=== PATIENT | female | born 1940 | race Caucasian/White ===

== ENCOUNTER 2022-06-22 11:56 | Emergency (ER) | payer MEDICARE, SELFPAY ==
--- NOTE | 2022-06-22 12:32 | ED.GENADULT ---
HPI - General Adult General Chief complaint: Extremity Problem Stated complaint: swollen cavs Time Seen by Provider: 06/22/22 17:24 Source: patient and other (friend) Mode of arrival: ambulatory Limitations: no limitations History of Present Illness HPI narrative: Patient is an 81-year-old female with history of cellulitis, TRAMAINE, hypothyroid, HLD, and smoking presenting to the emergency department with right lower leg erythema and pruritus for approximately 1 week. She reports history of cellulitis in the past and states this feels similar. She denies any recent fevers. She denies any drainage from the area. She has not used any [id number] medications for her symptoms. She denies any calf swelling or tenderness. Related Data Previous Rx's Medication Instructions Recorded amitriptyline 25 mg tablet 25 mg PO BEDTIME #90 tabs 09/14/20 levothyroxine 75 mcg tablet 75 mcg PO DAILY #90 tabs 12/13/20 doxycycline hyclate 100 mg tablet 100 mg PO BID #13 tabs 06/22/22 Allergies Allergy/AdvReac Type Severity Reaction Status Date / Time azithromycin Allergy Unknown Unknown Verified 06/22/22 12:37 codeine Allergy Unknown Unknown Verified 06/22/22 12:37 docusate [From Colace] Allergy Unknown red rash, Verified 06/22/22 12:37 hand swelling latex [LATEX] Allergy Unknown ITCHY Verified 06/22/22 12:37 levofloxacin [Levaquin] Allergy Unknown Unknown Verified 06/22/22 12:37 oxybutynin Allergy Unknown red Verified 06/22/22 12:37 rash,hand swelling Sulfa (Sulfonamide Allergy Unknown RASH, Verified 06/22/22 12:37 Antibiotics) Hives, [SULFA (SULFONAMIDE hives ANTIBIOTICS)] Review of Systems Review of Systems: As per HPI Yes all other systems are reviewed and are negative Constitutional: Constitutional: Reports as per HPI PMFSH Past Medical History Surgical History History of cataract surgery History of section History of cystoscopy History of tonsillectomy Family History Family History Father Lung cancer Mother Hypertension MRSA infection Family history of thyroid problem Social History Social History Alcohol intake: never Cigarettes Per Day: 10 Advance Directives: No Advance Directives Information Provided: No Physical Exam ED Vital Signs: Vital Signs - 24 hr 06/22/22 12:34 06/22/22 17:57 Temperature 97.8 F 97.7 F Pulse Rate 85 84 Respiratory Rate 16 16 Blood Pressure 106/52 L 108/47 L Pulse Oximetry 98 96 Oxygen Delivery Method Room Air Room Air BMI result Body Mass Index 23.0 Const General: cooperative, healthy appearing and no acute distress Orientation/consciousness: oriented to person, oriented to place, oriented to time and patient oriented x3 Limitations: no limitations HENMT Head: Yes normocephalic and Yes atraumatic Ears: external ears normal General nose exam: Normal external nose present Face and sinus: Yes face symmetric Mouth: oropharynx normal and moist mucous membranes Throat: Yes uvula midline Eyes Pupils: Equal, round and reactive pupils present Neck Neck: Yes normal visual inspection and Yes supple Resp Effort & Inspection: normal respiratory effort and able to speak in complete sentences Auscultation: clear to auscultation bilaterally Cardio Rate: regular rate Rhythm: regular rhythm Heart sounds: S1 normal heart sound present and S2 normal heart sound present GI Palpation (GI): Soft to palpation and nontender Auscultation: normoactive bowel sounds General: Yes no CVA tenderness Back/Spine/Pelvis Back: no CVA tenderness Skin Other: Circumferential erythema and calor with overlying yellow skin flaking to mid right lower leg extending distally to ankle, no discharge or drainage. General skin exam: elasticity normal and turgor normal Neuro General: oriented to person, oriented to place, oriented to time, patient oriented x3, moves all extremities, no focal motor deficits and CN's II-XI intact bilaterally Cranial nerves: Yes Equal, round and reactive pupils present Cognition (Neuro): normal cognition Extrem Other: negative Mamie's General: Yes full ROM, Yes no pedal edema and Yes no calf tenderness Right lower extremity: lower leg Details: erythema (overlying yellow flaking skin; no discharge or drainage) Location: of the mid lower leg Location: anteromedially and posterolaterally and of the distal lower leg Location: anteromedially and posterolaterally, tenderness Location: of the distal tibia; not of the posterior calf and no edema; no palpable cords and foot Details: normal capillary refill, normal to inspection, vascular exam Details: dorsalis pedis pulse present and normal capillary refill and motor-sensory exam Details: light-touch normal Psych Mental Status: mental status grossly normal Affect: normal affect Thought process: Normal thought process present Course Course Course Narrative: This is an RME: Additional HPI, ROS, PE not included below will be deferred to primary provider. 81 year old female with PMH of hyperlipidemia, TRAMAINE, hypothroidism and cigarrette smoking presents to the ED with right leg swelling for a few weeks. Patient's front clerk reports they usually soak her legs. Redness began about 2 days ago. No fevers, chills, numbness and tingling. PE: Erythema, weeping and 3+ non-pitting edema to right lower leg. Tender to palpation. Plan: Basic Labs Medical Decision Making Medical Decision Making [facility] Narrative: Patient is an 81-year-old female with history of cellulitis, TRAMAINE, hypothyroid, HLD, and smoking presenting to the emergency department with right lower leg erythema and pruritus for approximately 1 week. On exam patient is afebrile, nontoxic appearing, A+Ox3 with VS WNL, has localized erythema and warmth concerning for cellulitis. No lymphangitic spread visible and no fluid pockets or fluctuance concerning for abscess noted. Low concern for osteomyelitis or DVT. No immune compromise, bullae, pain out of proportion, or rapid progression concerning for necrotizing fasciitis. Labs unremarkable, no leukocytosis or shift. No evidence of serious bacterial infection requiring admission for antibiotics. Feel patient is safe to discharge home on oral doxycycline and follow up with PCP. Advised Tylenol or ibuprofen for discomfort. Return precautions discussed at bedside. Differential Diagnosis Differential Diagnoses: The differential diagnosis associated with the presentation includes As above. Admission/Observation Consideration of admission/observation: Escalation of care including admission/observation considered Lab Data [facility] Lab Attestation statement: I reviewed the patient's lab results. 06/22/22 13:42 06/22/22 13:42 Labs: Lab Results 06/22/22 06/22/22 06/22/22 Range/Units 13:42 13:42 13:42 WBC 8.0 (4.8-10.8) X10*3/uL RBC 4.51 (4.20-5.50) X10*6/uL Hgb 14.1 (12.0-16.0) g/dl Hct 43.2 (37.0-47.0) % MCV 95.8 (80.0-98.0) fL MCH 31.3 (27.0-33.0) pg MCHC 32.6 (31.0-35.0) g/dl RDW 13.0 (11.0-16.0) % Plt Count 234 (160-400) X10*3/uL MPV 9.8 (9.4-12.3) fL Immature Gran % (Auto) 0.3 (0.0-0.4) % Neut % (Auto) 66.1 (45-73) % Lymph % (Auto) 20.8 (20-40) % [place] % (Auto) 9.1 (2-11) % Eos % (Auto) 3.4 (0-4) % Baso % (Auto) 0.3 (0-2) % Lymph # (Auto) 1.7 (1.2-4.9) X10*3/uL [place] # (Auto) 0.7 (0.1-1.2) X10*3/uL Eos # (Auto) 0.3 (0.0-0.4) X10*3/uL Baso # (Auto) 0.0 (0.0-0.2) X10*3/uL Abs Immat Gran (auto) 0.02 (0.00-0.03) X10*3/uL Absolute Neuts (auto) 5.3 (2.0-8.3) x10*3/uL Absolute Nucleated RBC 0.000 (0.0-0.012) X10*3/uL Nucleated RBC % (auto) 0.0 (0.0-0.2) /100WBC Sodium 141 (135-145) mmol/L Potassium 4.5 (3.3-5.1) mmol/L Chloride 109 H (96-108) mmol/L Carbon Dioxide 26 (22-29) mmol/L Anion Gap 11 L (12-20) BUN 19 H (9-16) mg/dL Creatinine 0.86 (0.5-1.4) mg/dL Estim Creat Clear Calc 42.4 Estimated GFR > 60 Random Glucose 89 (60-115) mg/dL Calcium 9.5 (8.4-10.2) mg/dL Magnesium 2.0 (1.6-2.6) mg/dL Total Bilirubin 1.7 H (0.0-1.0) mg/dL AST 24 (5-31) U/L ALT 16 (0-31) U/L Alkaline Phosphatase 79 (39-117) U/L B-Natriuretic Peptide 45 (<100) pg/mL Total Protein 6.4 L (6.5-8.0) g/dL Albumin 4.2 (3.5-5.0) g/dL Independent Historian Clinical information obtained from an independent historian. History obtained from or confirmed by: Friend External Record Review External record reviewed: Inpatient record, Office record and Outpatient record Prescription Management I considered prescription management with: Antibiotic (doxycycline) Discharge Plan Discharge Clinical Impression: Cellulitis of leg, right Patient Disposition: Home, Self-Care Instructions: Doxycycline (By mouth), Cellulitis (ED), Cellulitis (DC) Additional Instructions: You have been evaluated in the emergency department today for skin infection, also known as cellulitis. Please return to the ER immediately if the area of redness increases up your leg. You are being prescribed an antibiotic called doxycycline. You were given the 1st dose here in the emergency department, your next dose is due in the morning. Please take your prescribed antibiotics as directed for the full course of the medication. You can use Tylenol or ibuprofen per package instructions every 6 hours as needed for pain. If necessary, you can alternate these medications so that you can take one medication every 3 hours. For instance, at noon take ibuprofen, then at 3:00 p.m. take Tylenol, then at 6:00 p.m. take ibuprofen. Please schedule an appointment for follow-up with your primary care physician as soon as possible. Return to the emergency department if you experience recurrent vomiting, fevers greater than 100.4? F, increasing area of redness, warmth around the area, foul-smelling discharge from the area, increased tenderness around the area, or any other concerning symptoms. Prescriptions: New doxycycline hyclate 100 mg tablet 100 mg PO BID Qty: 13 0RF No Action amitriptyline 25 mg tablet 25 mg PO BEDTIME Qty: 90 0RF levothyroxine 75 mcg tablet 75 mcg PO DAILY Qty: 90 1RF
[2022-06-22 12:34] VITALS: BP 106/52; PULSE 85; RESP 16; TEMP 36.6; O2SAT 98; BMI 23.0
[2022-06-22 13:49] LABS: MANUAL DIFF FLAG NO
[2022-06-22 13:50] LABS: Basophils Percent Auto 0.3 % (0-2); Eosinophils Absolute Auto 0.3 X10*3/uL (0.0-0.4); Eosinophils Percent Auto 3.4 % (0-4); Hematocrit 43.2 % (37.0-47.0); Hemoglobin 14.1 g/dl (12.0-16.0); Imm Gran Abs Auto 0.02 X10*3/uL (0.00-0.03); Imm Gran Pct Auto 0.3 % (0.0-0.4); Lymphocytes Absolute Auto 1.7 X10*3/uL (1.2-4.9); Lymphocytes Percent Auto 20.8 % (20-40); Mean Corpuscular HGB Conc 32.6 g/dl (31.0-35.0); Mean Corpuscular Hemoglobin 31.3 pg (27.0-33.0); Mean Corpuscular Volume 95.8 fL (80.0-98.0); Mean Platelet Volume 9.8 fL (9.4-12.3); Monocytes Absolute Auto 0.7 X10*3/uL (0.1-1.2); Monocytes Percent Auto 9.1 % (2-11); Neutrophils Absolute Auto 5.3 x10*3/uL (2.0-8.3); Neutrophils Percent Auto 66.1 % (45-73); Platelet Count 234 X10*3/uL (160-400); Red Blood Count 4.51 X10*6/uL (4.20-5.50)
[2022-06-22 14:10] LABS: Alanine Aminotransferase 16 U/L (0-31); Albumin Level 4.2 g/dL (3.5-5.0); Alkaline Phosphatase 79 U/L (39-117); Anion Gap 11 (12-20); Aspartate Amino Transferase 24 U/L (5-31); Bilirubin Total 1.7 mg/dL (0.0-1.0); Blood Urea Nitrogen 19 mg/dL (9-16); Calcium 9.5 mg/dL (8.4-10.2); Carbon Dioxide 26 mmol/L (22-29); Chloride 109 mmol/L (96-108); Creatinine Clr Calc Pharmacy 42.4; Estimated Glomerular Filt Rate > 60; Glucose Random 89 mg/dL (60-115); Potassium 4.5 mmol/L (3.3-5.1); Sodium 141 mmol/L (135-145); Total Protein 6.4 g/dL (6.5-8.0)
[2022-06-22 14:14] LABS: B Type Natriuretic Peptide 45 pg/mL (<100)
[2022-06-22 17:57] VITALS: BP 108/47; PULSE 84; RESP 16; TEMP 36.5; O2SAT 96
[2022-06-22] MEDS: Doxycycline Monohydrate 100 MG CAPSULE PO (18:24)
[2022-06-22] MEDS: diphenhydrAMINE HCL 25 MG CAPSULE PO (18:24)
== END 2022-06-22 18:28 | disposition home or self-care (01) ==
PROVIDERS: Physician Assistant; Emergency Provider Student in an Organized Health Care Education/Training Program; PCP Physician Assistant
DX: L03.115 Cellulitis of right lower limb (principal); R06.02 Shortness of breath; Z79.899 Other long term (current) drug therapy
CPT/HCPCS: 36415; 80053; 83735; 83880; 85025; 99282; 99283

== ENCOUNTER 2022-06-29 12:34 | Emergency (ER) | payer MEDICARE, OTHER, SELFPAY ==
[2022-06-29 12:45] VITALS: BP 95/45; PULSE 84; RESP 16; TEMP 36.6; O2SAT 99; BMI 24.8
--- NOTE | 2022-06-29 12:48 | ED_ITS ---
HPI - Skin/Abscess/Foreign Bdy General Chief complaint: Skin/Abscess/Foreign Body <ISAIAS Renee Last Filed: 06/29/22 12:51> Stated complaint: rash on both feet <ISAIAS Renee - Last Filed: 06/29/22 12:51> Time Seen by Provider: 06/29/22 14:21 <ISAIAS Renee - Last Filed: 06/29/22 12:51> Related Data Home medications: Previous Rx's Medication Instructions Recorded amitriptyline 25 mg tablet 25 mg PO BEDTIME #90 tabs 09/14/20 levothyroxine 75 mcg tablet 75 mcg PO DAILY #90 tabs 12/13/20 doxycycline hyclate 100 mg tablet 100 mg PO BID #13 tabs 06/22/22 <ISAIAS Renee Last Filed: 06/29/22 12:51> Allergies/Adverse reactions: Allergies Allergy/AdvReac Type Severity Reaction Status Date / Time azithromycin Allergy Unknown Unknown Verified 06/22/22 12:37 codeine Allergy Unknown Unknown Verified 06/22/22 12:37 docusate [From Colace] Allergy Unknown red rash, Verified 06/22/22 12:37 hand swelling latex [LATEX] Allergy Unknown ITCHY Verified 06/22/22 12:37 levofloxacin [Levaquin] Allergy Unknown Unknown Verified 06/22/22 12:37 oxybutynin Allergy Unknown red Verified 06/22/22 12:37 rash,hand swelling Sulfa (Sulfonamide Allergy Unknown RASH, Verified 06/22/22 12:37 Antibiotics) Hives, [SULFA (SULFONAMIDE hives ANTIBIOTICS)] <ISAIAS Renee Last Filed: 06/29/22 12:51> [facility] Past Medical History Surgical History: Surgical History History of cataract surgery History of section History of cystoscopy History of tonsillectomy <ISAIAS Renee Last Filed: 06/29/22 12:51> Family History Family History: Family History Father Lung cancer Mother Hypertension MRSA infection Family history of thyroid problem <ISAIAS Renee - Last Filed: 06/29/22 12:51> Social History Social History: Social History Alcohol intake: never Cigarettes Per Day: 10 Advance Directives: No <ISAIAS Renee - Last Filed: 06/29/22 12:51> Physical Exam Vital Signs: Vital Signs: Last Vital Signs Temp 97.9 F 06/29/22 12:45 Pulse 84 06/29/22 12:45 Resp 16 06/29/22 12:45 BP 95/45 L 06/29/22 12:45 Pulse Ox 99 06/29/22 12:45 O2 Del Method Room Air 06/29/22 12:45 BMI result Body Mass Index 24.8 <ISAIAS Renee - Last Filed: 06/29/22 12:51> Vital Signs: Last Vital Signs Temp 97.9 F 06/29/22 12:45 Pulse 84 06/29/22 12:45 Resp 16 06/29/22 12:45 BP 95/45 L 06/29/22 12:45 Pulse Ox 99 06/29/22 12:45 O2 Del Method Room Air 06/29/22 12:45 BMI result Body Mass Index 24.8 <VICKIE Caldera-BC - Last Filed: 06/29/22 15:47> Course Course Course Narrative: 1249 This is an RME: Additional HPI, ROS, PE not included below will be deferred to primary provider. 81-year-old female presents with worsening cellulitis of bilateral lower extremities now having bilateral upper extremity itching, patient states itching started at after treatment was initiated. According to chart review patient was on doxycycline. Possibly allergic reaction patient's blood pressure soft. Will order blood cultures, labs, lactic <ISAIAS Renee - Last Filed: 06/29/22 12:51> Medical Decision Making Medical Decision Making MDM Narrative: 81-year-old female presents with worsening cellulitis of bilateral lower extremities now having bilateral upper extremity itching, patient states itching started at after treatment was initiated. According to chart review patient was on doxycycline. her last dose was yesterday. Patient started yesterday with lower extremity or itching today her left upper arm and right upper arm begin to it. Patient noticed small rash. patient is afebrile,, alert and oriented x3. Normal vital signs. Nontoxic appearing. Localize erythema without increased warmth. No lymphatic spread or fluid pockets concerning for abscess. Low concern for osteomyelitis and DVT. Patient is not immunocompromised. Labs reviewed, and unremarkable. No leukocytosis or shift. Lactic acid ordered in triage and normal. No evidence of series bacterial infection requiring admission for antibiotics. Patient can be sent home with script for Benadryl, hydrocortisone and Benadryl cream. She can follow-up with her PCP. Return precautions discussed with patient and manager of training and development at bedside. <SAMARA CalderaP-BC - Last Filed: 06/29/22 15:47> Differential Diagnosis Differential Diagnoses: The differential diagnosis associated with the presentation includes <Gayle Pfeiffer CARE PROVIDER-BC - Last Filed: 06/29/22 15:47> Cellulitis, DVT, <Gayle Pfeiffer CARE PROVIDER-BC - Last Filed: 06/29/22 15:47> Lab Data MDM Lab Attestation statement: I reviewed the patient's lab results. <SAMARA CalderaP-BC - Last Filed: 06/29/22 15:47> Result Diagrams: 06/29/22 14:13 06/29/22 14:13 <ISAIAS Renee - Last Filed: 06/29/22 12:51> Labs: Lab Results 06/29/22 06/29/22 06/29/22 Range/Units 14:13 14:13 14:13 WBC 6.4 (4.8-10.8) X10*3/uL RBC 4.28 (4.20-5.50) X10*6/uL Hgb 13.6 (12.0-16.0) g/dl Hct 41.0 (37.0-47.0) % MCV 95.8 (80.0-98.0) fL MCH 31.8 (27.0-33.0) pg MCHC 33.2 (31.0-35.0) g/dl RDW 12.8 (11.0-16.0) % Plt Count 245 (160-400) X10*3/uL MPV 9.8 (9.4-12.3) fL Immature Gran % (Auto) 0.2 (0.0-0.4) % Neut % (Auto) 62.9 (45-73) % Lymph % (Auto) 24.0 (20-40) % [place] % (Auto) 8.0 (2-11) % Eos % (Auto) 4.6 H (0-4) % Baso % (Auto) 0.3 (0-2) % Lymph # (Auto) 1.5 (1.2-4.9) X10*3/uL [place] # (Auto) 0.5 (0.1-1.2) X10*3/uL Eos # (Auto) 0.3 (0.0-0.4) X10*3/uL Baso # (Auto) 0.0 (0.0-0.2) X10*3/uL Abs Immat Gran (auto) 0.01 (0.00-0.03) X10*3/uL Absolute Neuts (auto) 4.0 (2.0-8.3) x10*3/uL Absolute Nucleated RBC 0.000 (0.0-0.012) X10*3/uL Nucleated RBC % (auto) 0.0 (0.0-0.2) /100WBC Sodium 144 (135-145) mmol/L Potassium 3.6 (3.3-5.1) mmol/L Chloride 109 H (96-108) mmol/L Carbon Dioxide 26 (22-29) mmol/L Anion Gap 13 (12-20) BUN 15 (9-16) mg/dL Creatinine 0.88 (0.5-1.4) mg/dL Estim Creat Clear Calc 45.0 Estimated GFR > 60 Random Glucose 80 (60-115) mg/dL Lactic Acid 0.8 (0.5-2.0) mmol/L Calcium 9.1 (8.4-10.2) mg/dL Magnesium 2.0 (1.6-2.6) mg/dL Total Bilirubin 1.2 H (0.0-1.0) mg/dL AST 19 (5-31) U/L ALT 15 (0-31) U/L Alkaline Phosphatase 74 (39-117) U/L Total Protein 5.8 L (6.5-8.0) g/dL Albumin 3.8 (3.5-5.0) g/dL <ISAIAS Renee - Last Filed: 06/29/22 12:51> Lab Results 06/29/22 06/29/22 06/29/22 Range/Units 14:13 14:13 14:13 WBC 6.4 (4.8-10.8) X10*3/uL RBC 4.28 (4.20-5.50) X10*6/uL Hgb 13.6 (12.0-16.0) g/dl Hct 41.0 (37.0-47.0) % MCV 95.8 (80.0-98.0) fL MCH 31.8 (27.0-33.0) pg MCHC 33.2 (31.0-35.0) g/dl RDW 12.8 (11.0-16.0) % Plt Count 245 (160-400) X10*3/uL MPV 9.8 (9.4-12.3) fL Immature Gran % (Auto) 0.2 (0.0-0.4) % Neut % (Auto) 62.9 (45-73) % Lymph % (Auto) 24.0 (20-40) % [place] % (Auto) 8.0 (2-11) % Eos % (Auto) 4.6 H (0-4) % Baso % (Auto) 0.3 (0-2) % Lymph # (Auto) 1.5 (1.2-4.9) X10*3/uL [place] # (Auto) 0.5 (0.1-1.2) X10*3/uL Eos # (Auto) 0.3 (0.0-0.4) X10*3/uL Baso # (Auto) 0.0 (0.0-0.2) X10*3/uL Abs Immat Gran (auto) 0.01 (0.00-0.03) X10*3/uL Absolute Neuts (auto) 4.0 (2.0-8.3) x10*3/uL Absolute Nucleated RBC 0.000 (0.0-0.012) X10*3/uL Nucleated RBC % (auto) 0.0 (0.0-0.2) /100WBC Sodium 144 (135-145) mmol/L Potassium 3.6 (3.3-5.1) mmol/L Chloride 109 H (96-108) mmol/L Carbon Dioxide 26 (22-29) mmol/L Anion Gap 13 (12-20) BUN 15 (9-16) mg/dL Creatinine 0.88 (0.5-1.4) mg/dL Estim Creat Clear Calc 45.0 Estimated GFR > 60 Random Glucose 80 (60-115) mg/dL Lactic Acid 0.8 (0.5-2.0) mmol/L Calcium 9.1 (8.4-10.2) mg/dL Magnesium 2.0 (1.6-2.6) mg/dL Total Bilirubin 1.2 H (0.0-1.0) mg/dL AST 19 (5-31) U/L ALT 15 (0-31) U/L Alkaline Phosphatase 74 (39-117) U/L Total Protein 5.8 L (6.5-8.0) g/dL Albumin 3.8 (3.5-5.0) g/dL <VICKIE Caldera- - Last Filed: 06/29/22 15:47> Discharge Plan Discharge Prescriptions: No Action amitriptyline 25 mg tablet 25 mg PO BEDTIME Qty: 90 0RF levothyroxine 75 mcg tablet 75 mcg PO DAILY Qty: 90 1RF doxycycline hyclate 100 mg tablet 100 mg PO BID Qty: 13 0RF <ISAIAS Renee - Last Filed: 06/29/22 12:51>
[2022-06-29 14:18] LABS: MANUAL DIFF FLAG NO
[2022-06-29 14:20] LABS: Basophils Percent Auto 0.3 % (0-2); Eosinophils Absolute Auto 0.3 X10*3/uL (0.0-0.4); Eosinophils Percent Auto 4.6 % (0-4); Hemoglobin 13.6 g/dl (12.0-16.0); Imm Gran Abs Auto 0.01 X10*3/uL (0.00-0.03); Imm Gran Pct Auto 0.2 % (0.0-0.4); Lymphocytes Absolute Auto 1.5 X10*3/uL (1.2-4.9); Mean Corpuscular HGB Conc 33.2 g/dl (31.0-35.0); Mean Corpuscular Hemoglobin 31.8 pg (27.0-33.0); Mean Corpuscular Volume 95.8 fL (80.0-98.0); Mean Platelet Volume 9.8 fL (9.4-12.3); Monocytes Absolute Auto 0.5 X10*3/uL (0.1-1.2); Neutrophils Percent Auto 62.9 % (45-73); Platelet Count 245 X10*3/uL (160-400); Red Blood Count 4.28 X10*6/uL (4.20-5.50); Red Cell Distribution Width 12.8 % (11.0-16.0); White Blood Count 6.4 X10*3/uL (4.8-10.8)
[2022-06-29 14:30] LABS: Lactic Acid 0.8 mmol/L (0.5-2.0)
[2022-06-29 14:35] LABS: Alanine Aminotransferase 15 U/L (0-31); Albumin Level 3.8 g/dL (3.5-5.0); Alkaline Phosphatase 74 U/L (39-117); Anion Gap 13 (12-20); Aspartate Amino Transferase 19 U/L (5-31); Bilirubin Total 1.2 mg/dL (0.0-1.0); Blood Urea Nitrogen 15 mg/dL (9-16); Calcium 9.1 mg/dL (8.4-10.2); Carbon Dioxide 26 mmol/L (22-29); Chloride 109 mmol/L (96-108); Estimated Glomerular Filt Rate > 60; Glucose Random 80 mg/dL (60-115); Potassium 3.6 mmol/L (3.3-5.1); Sodium 144 mmol/L (135-145); Total Protein 5.8 g/dL (6.5-8.0)
[2022-06-29 15:50] VITALS: BP 128/52; PULSE 78; RESP 16; TEMP 36.4; O2SAT 98
[2022-06-29] MEDS: diphenhydrAMINE HCL 25 MG CAPSULE PO (15:57)
== END 2022-06-29 16:19 | disposition home or self-care (01) ==
PROVIDERS: Physician Assistant; Emergency Provider Student in an Organized Health Care Education/Training Program
DX: R21 Rash and other nonspecific skin eruption (principal); L03.116 Cellulitis of left lower limb; L03.115 Cellulitis of right lower limb
CPT/HCPCS: 36415; 80053; 83605; 83735; 85025; 87040; 99283

== ENCOUNTER 2022-12-05 18:14 | Emergency (ER) | payer MEDICARE, SELFPAY ==
--- NOTE | ~2022-12-05 | XR_ITS ---
EXAMINATION: XR CHEST CLINICAL INFORMATION: Chest pain. COMPARISON: 10/11/2015. TECHNIQUE: 2 views of the chest were obtained. FINDINGS: The cardiomediastinal silhouette is normal. There is no focal lung consolidation or pleural effusion. The bony structures and soft tissues are unremarkable. XR/XR chest 2V IMPRESSION: No active cardiopulmonary disease.
--- NOTE | 2022-12-05 18:16 | ECG_ITS ---
Test Reason : CP Blood Pressure : / mmHG Vent. Rate : 092 BPM Atrial Rate : 092 BPM P-R Int : 152 ms QRS Dur : 058 ms QT Int : 366 ms P-R-T Axes : 082 -25 053 degrees QTc Int : 452 ms Normal sinus rhythm Low voltage QRS Left anterior fascicular block Abnormal ECG When compared with ECG of 11-OCT-2015 14:03, Left anterior fascicular block is new Referred By: Keli Reece Electronically Signed By:SOPHIE SALDIVAR MD
[2022-12-05 18:25] VITALS: BP 105/52; PULSE 101; RESP 20; TEMP 37.1; O2SAT 98; BMI 22.9
--- NOTE | 2022-12-05 18:25 | ED.CHESTPAIN ---
HPI - Chest Pain General Chief Complaint: Chest Pain Stated Complaint: chest pain Time Seen by Provider: 12/05/22 23:20 Source: patient and family Mode of arrival: ambulatory Limitations: no limitations History of Present Illness HPI narrative: Patient comes to the emergency room complaining of chest pain. According to the patient's daughter, since yesterday, she has noted that when the patient starts laughing, she gets chest pain. Otherwise, no chest pain at rest or with exertion, nor recent URIs, no coughing. At this time, patient states that she feels completely normal. Chest pain worsens with laughing. Patient denies any syncopal episodes. Patient denies cardiac history. Related Data Previous Rx's Medication Instructions Recorded amitriptyline 25 mg tablet 25 mg PO BEDTIME #90 tabs 09/14/20 levothyroxine 75 mcg tablet 75 mcg PO DAILY #90 tabs 12/13/20 doxycycline hyclate 100 mg tablet 100 mg PO BID #13 tabs 06/22/22 diphenhydramine HCl 2 % topical 1 appl topical BID PRN itching 06/29/22 gel (Itch Relief (diphenhydramine)) #118 mL diphenhydramine HCl 25 mg capsule 25 mg PO TID PRN allergy symptoms 06/29/22 (Benadryl) #20 caps Allergies Allergy/AdvReac Type Severity Reaction Status Date / Time azithromycin Allergy Unknown Unknown Verified 06/22/22 12:37 codeine Allergy Unknown Unknown Verified 06/22/22 12:37 docusate [From Colace] Allergy Unknown red rash, Verified 06/22/22 12:37 hand swelling latex [LATEX] Allergy Unknown ITCHY Verified 06/22/22 12:37 levofloxacin [Levaquin] Allergy Unknown Unknown Verified 06/22/22 12:37 oxybutynin Allergy Unknown red Verified 06/22/22 12:37 rash,hand swelling Sulfa (Sulfonamide Allergy Unknown RASH, Verified 06/22/22 12:37 Antibiotics) Hives, [SULFA (SULFONAMIDE hives ANTIBIOTICS)] Review of Systems Review of Systems: Constitutional : No Weight loss, No Fever, No Chills, No Night Sweats, No Fatigue, No Malaise ENT/Mouth : No Hearing loss, No Ear Pain, No Nasal Congestion, No Sinus Pain, No Hoarseness, No sore throat, No Rhinorrhea, No Swallowing Difficulty Eyes: No Eye Pain, No Swelling, No Redness, No Foreign Body, No Discharge, No Vision Changes Cardiovascular : Complaining of intermittent Chest Pain worsened by laughing, no chest pain at this time. No SOB, No Dyspnea on Exertion, No Orthopnea, No Edema, No Palpitations Respiratory : No Cough, No Sputum, No Wheezing, No Smoke Exposure, No Dyspnea Gastrointestinal : No Nausea, No Vomiting, No Diarrhea, No Constipation, No abdominal Pain, No Hematochezia, No Melena Genitourinary : no irregular bleeding, No Dysuria, No Urinary Frequency, No Hematuria, No Urinary Incontinence, No Urgency, No Flank Pain, No Urinary Flow Changes, No Hesitancy Musculoskeletal : No joint pain, No Myalgias, No Joint Swelling Skin : No Skin Lesions, No rash Neuro : No Weakness, No Numbness, No Paresthesias, No Loss of Consciousness, No Dizziness, No Headache Psych : No Anxiety/Panic, No Depression, No SI/HI/AH/VH, No Social Issues, Heme/Lymph: No Bruising, No Bleeding,No Lymphadenopathy Endocrine : No Polyuria, No Polydipsia, No Temperature Intolerance [facility] Past Medical History Medical History HLD (hyperlipidemia) TRAMAINE (generalized anxiety disorder) Hypothyroid Surgical History History of cystoscopy History of tonsillectomy History of cataract surgery History of section Family History Family History Father Lung cancer Mother Hypertension MRSA infection Family history of thyroid problem Social History Social History Alcohol intake: never Cigarettes Per Day: 10 Smoked in Last 30 Days: Yes Use of substances other than those prescribed or required for medical reasons: No Advance Directives: No Advance Directives Information Provided: No Physical Exam Vital Signs: Vital Signs: Last Vital Signs Temp 98.1 F 12/05/22 22:05 Pulse 65 12/05/22 22:05 Resp 16 12/05/22 22:05 BP 107/51 L 12/05/22 22:05 Pulse Ox 96 12/05/22 22:05 O2 Del Method Room Air 12/05/22 22:05 BMI result Body Mass Index 22.9 Const: Other: Appearance: Alert. Oriented X3. No acute distress. Eyes: Pupils equal, round and reactive to light. ENT: Pharynx normal. Neck: Normal inspection. Neck supple. No lymph nodes noted. No crepitus CVS: Normal heart rate and rhythm. Pulses normal. Normal S1 and S2 Respiratory: No respiratory distress. Breath sounds normal. No Wheezing. No rales Abdomen: Soft and nontender. No rigidity. No distention. Skin: Skin warm and dry. Normal skin color. Normal skin turgor. Extremities: No lower extremity edema. No Lacerations. No Rash Neuro: Oriented X 3. No motor deficit. No sensory deficit. Moving all extremities. No slurred speech. CN 2 through 12 grossly intact Psych: calm, cooperative, normal affect Course Course Course Narrative: This is a rapid medical exam. Deferred additional HPI, ROS, PE to primary provider. 82 yo female, tobacco smoking here with complaints of left sided chest pain worsened with movement/breathing/touch since yesterday. No cough, fevers, SOB, leg swelling/leg pain. Will obtain EKG, CXR, labs, viral testing VSS Medical Decision Making Medical Decision Making MDM Narrative: -my interpretation of labs: Hematology and chemistry unremarkable, troponin negative. -my interpretation of chest x-ray: No infiltrates, no fractured ribs -my interpretation of EKG: Normal sinus rhythm, heart rate 92, no ST segment depression or elevation, no T-wave inversion, QTC 452 Differential Diagnosis Differential Diagnoses: The differential diagnosis associated with the presentation includes (Coronary artery disease, NSTEMI, costochondritis, muscle spasm, anxiety) Admission/Observation Consideration of admission/observation: Escalation of care including admission/observation considered (Given the patient's initial presentation and history, admission was considered) Lab Data [facility] [place] Lab Attestation statement: I reviewed the patient's lab results. 12/05/22 19:15 12/05/22 19:15 Labs: Lab Results 12/05/22 Range/Units 19:15 WBC 7.8 (4.8-10.8) X10*3/uL RBC 4.32 (4.20-5.50) X10*6/uL Hgb 13.6 (12.0-16.0) g/dl Hct 41.8 (37.0-47.0) % MCV 96.8 (80.0-98.0) fL MCH 31.5 (27.0-33.0) pg MCHC 32.5 (31.0-35.0) g/dl RDW 13.6 (11.0-16.0) % Plt Count 234 (160-400) X10*3/uL MPV 9.6 (9.4-12.3) fL Immature Gran % (Auto) 0.3 (0.0-0.4) % Neut % (Auto) 59.7 (45-73) % Lymph % (Auto) 29.5 (20-40) % [place] % (Auto) 9.2 (2-11) % Eos % (Auto) 1.0 (0-4) % Baso % (Auto) 0.3 (0-2) % Lymph # (Auto) 2.3 (1.2-4.9) X10*3/uL [place] # (Auto) 0.7 (0.1-1.2) X10*3/uL Eos # (Auto) 0.1 (0.0-0.4) X10*3/uL Baso # (Auto) 0.0 (0.0-0.2) X10*3/uL Abs Immat Gran (auto) 0.02 (0.00-0.03) X10*3/uL Absolute Neuts (auto) 4.7 (2.0-8.3) x10*3/uL Absolute Nucleated RBC 0.000 (0.0-0.012) X10*3/uL Nucleated RBC % (auto) 0.0 (0.0-0.2) /100WBC PT 11.3 (11.1-13.3) SEC INR 0.9 (0.9-1.1) Sodium 145 (135-145) mmol/L Potassium 3.7 (3.3-5.1) mmol/L Chloride 113 H (96-108) mmol/L Carbon Dioxide 23 (22-29) mmol/L Anion Gap 13 (12-20) BUN 16 (9-16) mg/dL Creatinine 0.77 (0.5-1.4) mg/dL Estim Creat Clear Calc 44.5 Estimated GFR > 60 Random Glucose 85 (60-115) mg/dL Calcium 9.3 (8.4-10.2) mg/dL Magnesium 2.1 (1.6-2.6) mg/dL Total Bilirubin 0.7 (0.0-1.0) mg/dL Direct Bilirubin 0.2 (0.0-0.5) mg/dL AST 20 (5-31) U/L ALT 14 (0-31) U/L Alkaline Phosphatase 78 (39-117) U/L Troponin I High Sens < 2.7 (<3.5-17.0) ng/L Total Protein 6.8 (6.5-8.0) g/dL Albumin 4.1 (3.5-5.0) g/dL Influenza Type A (PCR) NEGATIVE (Negative) Influenza Type B (PCR) NEGATIVE (Negative) RSV RNA Qual (PCR) NEGATIVE (Negative) SARS-CoV-2 RNA (RT-PCR) NEGATIVE (Negative) Independent Interpretation I performed an independent interpretation of an: Plain X-Ray Radiology Impression Discussion of test interpretation with radiology: I have reviewed the radiologist's reading. Radiologist Impression: The cardiomediastinal silhouette is normal. There is no focal lung consolidation or pleural effusion. The bony structures and soft tissues are unremarkable. XR/XR chest 2V IMPRESSION: No active cardiopulmonary disease. Independent Historian Clinical information obtained from an independent historian. History obtained from or confirmed by: Other (Daughter) Critical Care Time Critical Care Time Critical Care Time: Yes Total Critical Care Time: 30 Attestation: I have personally provided critical care time. Time includes review of lab data, radiology results, discussion with consultants, and monitoring for potential decompensation. Intervention performed as documented. Discharge Plan Discharge Clinical Impression: Atypical chest pain Patient Disposition: Home, Self-Care Instructions: Chest Pain (ED) Additional Instructions: Please follow-up with your primary care physician tomorrow. If you have any worsening or new symptoms, please return to the emergency room or call 911 Prescriptions: No Action amitriptyline 25 mg tablet 25 mg PO BEDTIME Qty: 90 0RF levothyroxine 75 mcg tablet 75 mcg PO DAILY Qty: 90 1RF doxycycline hyclate 100 mg tablet 100 mg PO BID Qty: 13 0RF Itch Relief (diphenhydramine) 2 % gel 1 appl topical BID PRN (Reason: itching) Qty: 118 0RF diphenhydramine HCl [Benadryl] 25 mg capsule 25 mg PO TID PRN (Reason: allergy symptoms) Qty: 20 0RF
[2022-12-05 19:19] LABS: MANUAL DIFF FLAG NO
[2022-12-05 19:26] LABS: Basophils Percent Auto 0.3 % (0-2); Eosinophils Absolute Auto 0.1 X10*3/uL (0.0-0.4); Hematocrit 41.8 % (37.0-47.0); Hemoglobin 13.6 g/dl (12.0-16.0); Imm Gran Abs Auto 0.02 X10*3/uL (0.00-0.03); Imm Gran Pct Auto 0.3 % (0.0-0.4); Lymphocytes Absolute Auto 2.3 X10*3/uL (1.2-4.9); Lymphocytes Percent Auto 29.5 % (20-40); Mean Corpuscular HGB Conc 32.5 g/dl (31.0-35.0); Mean Corpuscular Hemoglobin 31.5 pg (27.0-33.0); Mean Corpuscular Volume 96.8 fL (80.0-98.0); Mean Platelet Volume 9.6 fL (9.4-12.3); Monocytes Absolute Auto 0.7 X10*3/uL (0.1-1.2); Monocytes Percent Auto 9.2 % (2-11); Neutrophils Absolute Auto 4.7 x10*3/uL (2.0-8.3); Neutrophils Percent Auto 59.7 % (45-73); Platelet Count 234 X10*3/uL (160-400); Red Blood Count 4.32 X10*6/uL (4.20-5.50); Red Cell Distribution Width 13.6 % (11.0-16.0); White Blood Count 7.8 X10*3/uL (4.8-10.8)
[2022-12-05 19:34] LABS: Alanine Aminotransferase 14 U/L (0-31); Albumin Level 4.1 g/dL (3.5-5.0); Alkaline Phosphatase 78 U/L (39-117); Anion Gap 13 (12-20); Aspartate Amino Transferase 20 U/L (5-31); Bilirubin Direct 0.2 mg/dL (0.0-0.5); Bilirubin Total 0.7 mg/dL (0.0-1.0); Blood Urea Nitrogen 16 mg/dL (9-16); Calcium 9.3 mg/dL (8.4-10.2); Carbon Dioxide 23 mmol/L (22-29); Chloride 113 mmol/L (96-108); Creatinine Clr Calc Pharmacy 44.5; Estimated Glomerular Filt Rate > 60; Glucose Random 85 mg/dL (60-115); Magnesium 2.1 mg/dL (1.6-2.6); Potassium 3.7 mmol/L (3.3-5.1); Sodium 145 mmol/L (135-145); Total Protein 6.8 g/dL (6.5-8.0)
[2022-12-05 19:42] LABS: Troponin-I High Sensitivity < 2.7 ng/L (<3.5-17.0)
[2022-12-05 19:43] LABS: INTERNATIONAL NORM RATIO 0.9 (0.9-1.1); Prothrombin Time 11.3 SEC (11.1-13.3)
[2022-12-05 19:57] LABS: Influenza A PCR NEGATIVE (Negative); Influenza B PCR NEGATIVE (Negative); Resp Syncy Virus RNA Qual PCR NEGATIVE (Negative); SARS COV2 PCR INHOUSE NEGATIVE (Negative)
[2022-12-05 22:05] VITALS: BP 107/51; PULSE 65; PULSE 84; RESP 16; TEMP 36.7; O2SAT 96
== END 2022-12-06 00:12 | disposition home or self-care (01) ==
PROVIDERS: Nurse Practitioner Family; Emergency Provider Emergency Medicine
DX: R07.89 Other chest pain (principal); Z20.822 Contact with and (suspected) exposure to COVID-19; Z20.828 Contact with and (suspected) exposure to other viral communicable diseases; F17.210 Nicotine dependence, cigarettes, uncomplicated; Z79.899 Other long term (current) drug therapy
CPT/HCPCS: 0241U; 71046; 80048; 80076; 83735; 84484; 85025; 85610; 93005; 99283; 99285

== ENCOUNTER 2022-12-27 13:21 | Inpatient (IN) | payer MEDICARE, SELFPAY ==
--- NOTE | ~2022-12-27 | CT_ITS ---
EXAMINATION: CT HEAD WITHOUT CONTRAST CT CERVICAL SPINE WITHOUT CONTRAST CLINICAL INFORMATION: Fall and neck pain. COMPARISON: CT cervical spine 01/27/2011. CT head 10/11/2015. TECHNIQUE: Rn Rehab images were obtained. CT imaging of the head and cervical spine was performed without contrast. Data was reformatted into multiplanar images at the acquisition workstation. This CT examination was performed using dose optimization techniques as appropriate, including one or more of the following: Automated exposure control, iterative reconstruction, and adjustment of technique factors (mA and/or kVp) according to patient size (this includes techniques or standardized protocols for targeted exams where dose is matched to indication/reason for exam). Fleischner Society criteria for the followup of incidental pulmonary nodules was implemented if appropriate. DLP: 923 mGy-cm. FINDINGS: Head: There is no acute intracranial hemorrhage or abnormal extra-axial collection. No intracranial mass effect or midline shift. Lateral and third ventricles are normal. No hydrocephalus. Scattered nonspecific foci of hypoattenuation are visualized within the periventricular white matter that most likely represent a chronic manifestation of small vessel ischemia. [place]-white matter differentiation is otherwise preserved and there is no evidence of acute territorial infarct. The calvarium and skull base are intact. Mastoid air cells and middle ear cavities are well aerated. No active paranasal sinus disease. Cervical spine: Alignment is grossly maintained in the sagittal dimension. Vertebral heights are preserved. No acute fracture. No abnormal prevertebral soft tissue swelling. There is severe degenerative arthrosis of the atlantodental joint. There is loss of intervertebral disc height with associated hypertrophic disc osteophyte spurring at C5-C6 and C6-C7. There are a few shallow protrusions and/or bulging discs at multiple levels within the cervical spine causing at least moderate canal stenosis at levels of C4-C5 and C5-C6. Uncovertebral joint spurring causes mild to moderate neuroforaminal encroachment multiple levels. Visualized soft tissues of the neck are unremarkable. Lung apices are clear. There is heavily calcified atheromatous plaque at both carotid bifurcations. CT/CT cervical spine wo IV con IMPRESSION: Head: There are numerous chronic small vessel ischemic changes primarily involving the periventricular white matter. Grossly no evidence of acute territorial infarct or hemorrhage. Cervical spine: There is multilevel degenerative spondylosis of the cervical spine with at least moderate canal stenosis at levels of C4-C5 and C5-C6. If there are clinical symptoms of compressive myelopathy then a dedicated cervical spine MRI can be obtained for better anatomic characterization of the cord and canal. Grossly no evidence of acute cervical spine fracture. There is mild to moderate neuroforaminal encroachment multiple levels.
--- NOTE | ~2022-12-27 | XR_ITS ---
EXAMINATION: XR CHEST CLINICAL INFORMATION: Fall COMPARISON: Previous chest x-ray most recent November 2022 TECHNIQUE: Frontal view of the chest was obtained. FINDINGS: The cardiac and mediastinal contours are normal. The lungs are clear. No pleural effusion or pneumothorax. Degenerative changes of the spine. Right proximal humerus fracture. XR/XR chest 1V IMPRESSION: No evidence for acute disease in the chest.
--- NOTE | ~2022-12-27 | US_ITS ---
EXAMINATION: US ABDOMEN LIMITED CLINICAL INFORMATION: Abnormal LFTs.. COMPARISON: None available. TECHNIQUE: Real-time imaging of the right upper quadrant abdominal viscera. FINDINGS: PANCREAS: The pancreatic head and body are normal. Tail obscured by bowel gas. LIVER: Slight increased echotexture suggesting steatosis but no focal or suspicious masses nor is there evidence of intrahepatic biliary dilatation. Hepatic veins and IVC appear prominent. Please correlate with the patient's cardiac status. GALLBLADDER: Normal. The gallbladder is physiologically distended without evidence of stones, sludge, polyps, wall thickening or pericholecystic fluid. COMMON BILE DUCT: Normal in caliber measuring 0.2 cm in diameter. RIGHT KIDNEY: Normal. No hydronephrosis. No renal calculi or focal parenchymal lesions. The kidney measures 9.9 cm in maximum dimension. FREE FLUID: None. US/US abdomen limited IMPRESSION: No gallstones or biliary dilatation. Slightly echogenic liver.
--- NOTE | ~2022-12-27 | XR_ITS ---
EXAMINATION: XR HUMERUS, RIGHT CLINICAL INFORMATION: Fall COMPARISON: None available. TECHNIQUE: AP and lateral views of the right humerus. FINDINGS: There is an acute minimally displaced fracture of the surgical neck of the humerus. Appears at least 3 part with involvement of the greater tuberosity. Slight impaction. Glenohumeral alignment is normal. The elbow joint is normal. There may be soft tissue swelling adjacent to the fracture. XR/XR humerus RT IMPRESSION: Right humeral neck fracture.
--- NOTE | ~2022-12-27 | XR_ITS ---
EXAMINATION: XR HIP, RIGHT CLINICAL INFORMATION: Fall COMPARISON: None available. TECHNIQUE: Two views of the right hip and one view of the pelvis. FINDINGS: Bone alignment is normal. No fracture or dislocation. There is arthritis at both hip joints with joint space narrowing and osteophyte formation. Bones of the pelvis are unremarkable. Degenerative changes of the visualized lower lumbar spine. There is soft tissue arterial calcification. XR/XR hip RT w PEL1V IMPRESSION: No fracture or dislocation. Bilateral hip arthritis.
--- NOTE | 2022-12-27 13:39 | ECG_ITS ---
Test Reason : FALL Blood Pressure : / mmHG Vent. Rate : 094 BPM Atrial Rate : 094 BPM P-R Int : 166 ms QRS Dur : 050 ms QT Int : 396 ms P-R-T Axes : -18 074 003 degrees QTc Int : 495 ms Poor data quality Sinus rhythm with frequent Premature ventricular complexes Low voltage QRS Prolonged QT Abnormal ECG When compared with ECG of 05-DEC-2022 18:21, Premature ventricular complexes are now Present QRS axis Shifted right Borderline criteria for Inferior infarct are no longer Present Referred By: Shellie Banda Electronically Signed By:SOPHIE SALDIVAR MD
[2022-12-27 13:40] VITALS: BP 130/84; BP 170/94; PULSE 87; PULSE 90; RESP 16; O2SAT 96; O2SAT 98; BMI 23.7
--- NOTE | 2022-12-27 13:43 | ED_ITS ---
HPI - Abdominal Pain General Chief Complaint: Fall Stated Complaint: FALL,UNWITNESSED PER EMS Time Seen by Provider: 12/27/22 13:30 Source: patient and EMS Mode of arrival: EMS Limitations: no limitations History of Present Illness HPI narrative: 82-year-old female who lives home by herself came in after was found on the floor for unknown time, patient declined falling but also unable to provide a good history have she made it on the floor, daughter and friend frequently visits the patient at home. Patient stated she was on the floor because she was doing a lot of house cleaning. No AC, no headache, no blurry vision, no neck pain. Complaining of right arm pain, right hip pain. No CP or SOB. Related Data Previous Rx's Medication Instructions Recorded amitriptyline 25 mg tablet 25 mg PO BEDTIME #90 tabs 09/14/20 levothyroxine 75 mcg tablet 75 mcg PO DAILY #90 tabs 12/13/20 doxycycline hyclate 100 mg tablet 100 mg PO BID #13 tabs 06/22/22 diphenhydramine HCl 2 % topical 1 appl topical BID PRN itching 06/29/22 gel (Itch Relief (diphenhydramine)) #118 mL diphenhydramine HCl 25 mg capsule 25 mg PO TID PRN allergy symptoms 06/29/22 (Benadryl) #20 caps Allergies Allergy/AdvReac Type Severity Reaction Status Date / Time azithromycin Allergy Unknown Unknown Verified 06/22/22 12:37 codeine Allergy Unknown Unknown Verified 06/22/22 12:37 docusate [From Colace] Allergy Unknown red rash, Verified 06/22/22 12:37 hand swelling latex [LATEX] Allergy Unknown ITCHY Verified 06/22/22 12:37 levofloxacin [Levaquin] Allergy Unknown Unknown Verified 06/22/22 12:37 oxybutynin Allergy Unknown red Verified 06/22/22 12:37 rash,hand swelling Sulfa (Sulfonamide Allergy Unknown RASH, Verified 06/22/22 12:37 Antibiotics) Hives, [SULFA (SULFONAMIDE hives ANTIBIOTICS)] Review of Systems Review of Systems all other systems are reviewed and are negative Constitutional: Reports as per HPI and Reports no additional constitutional complaints Eyes: Reports as per HPI and Reports no additional eye complaints Reports system reviewed and no additional complaints, except as documented Cardiovascular: Reports as per HPI and Reports no additional cardiovascular complaints Respiratory: Reports as per HPI and Reports no additional respiratory complaints Gastrointestinal: Reports as per HPI and Reports no additional gastrointestinal complaints Genitourinary: Reports no additional female genitourinary complaints Musculoskeletal: Reports no additional musculoskeletal complaints Skin/Breast: Reports system reviewed and no additional complaints, except as docu Psychiatric: Reports no additional psychiatric complaints Endocrine: Reports no additional endocrine complaints Hematologic/Lymphatic: Reports no additional hematologic/lymphatic complaints Allergic/Immunologic: Reports no additional allergic/immunologic complaints Reports system reviewed and no additional complaints, except as documented and Reports Abnormal speech present [facility] Past Medical History Medical History HLD (hyperlipidemia) TRAMAINE (generalized anxiety disorder) Hypothyroid Surgical History History of cystoscopy History of tonsillectomy History of cataract surgery History of section Family History Family History Father Lung cancer Mother Hypertension MRSA infection Family history of thyroid problem Social History Social History Alcohol intake: never Cigarettes Per Day: 10 Advance Directives: No Advance Directives Information Provided: Yes Physical Exam ED Vital Signs: Vital Signs - 24 hr 12/27/22 13:40 12/27/22 13:52 12/27/22 16:46 Temperature 98 F 97.9 F Pulse Rate 90 88 Respiratory Rate 16 16 Blood Pressure 130/84 125/63 Pulse Oximetry 98 97 Oxygen Delivery Method Room Air Room Air BMI result Body Mass Index 23.7 Vital signs have been reviewed and appear to be correct. Blood pressure elevated. Heart rate normal. Respiratory rate normal. Temperature normal. Oxygen saturation normal. Appearance: Alert. Oriented X3. No acute distress. Head: Normal external exam. Normocephalic. Atraumatic. No Esparza signs noted. No raccoon eyes noted Eyes: PERRLA. EOMI. Conjunctiva and sclera normal. Eyelids normal. ENT: TM's Normal. Pharynx normal. Uvula midline. Moist mucous membranes. No trismus noted. No drooling noted. No muffled voice noted. Neck: Normal inspection. Neck supple. FROM. No adenopathy. Thyroid Normal. No meningeal signs. No neck mass noted. CVS: Normal heart rate and rhythm. Heart sound normal. No murmurs noted. Pulses normal throughout. Respiratory: No respiratory distress. Painless inspiration. Breath sounds normal. No wheezes/rales/rhonchi noted. Chest nontender. No accessory muscle usage noted or decreased air movement noted. Abdomen: Soft and nontender. Bowel sounds normal in all 4 quadrants. No distention noted. No organomegaly noted. No visible injury noted. Back: No CVA tenderness. Full range of motion noted. Skin: Skin warm and dry. Normal skin color. Normal skin turgor. No rashes/lesions/lacerations noted. Extremities: right arm: Diffuse hematoma to the right arm, neurovascularly intact, normal radial pulse, cap refill less than 2 seconds. Cranial nerve exam: II-XII are grossly intact No motor deficit. No sensory deficit. Reflexes normal. Course Reevaluation(s) Reevaluation #1: S/P fall likely mechanical, right humerus fracture, rhabdomyolysis, UTI Meet criteria for severe sepsis( elevated toal bilirubin), patient Already has received prophylacticIV antibiotic and fluids, consider blood culture and lactic acid. Will admit for gentle hydration and monitor kidney function test. Sling for the right humeral fracture. Time: 16:47 Medical Decision Making Differential Diagnosis Differential Diagnoses: The differential diagnosis associated with the presentation includes ( right humerus fracture, right hip fracture, pelvic fracture, intracranial bleed, cervical spine injury, electrolyte abnormalities, severe anemia, UTI.) Admission/Observation Consideration of admission/observation: Escalation of care including admission/observation considered Consult Healthcare Provider Management of the patient was discussed with: Hospitalist ( Dr. Morales) Lab Data [facility] Lab Attestation statement: I reviewed the patient's lab results. 12/27/22 13:59 12/27/22 13:59 Labs: Lab Results 12/27/22 12/27/22 Range/Units 13:59 15:04 WBC 15.9 H (4.8-10.8) X10*3/uL RBC 4.70 (4.20-5.50) X10*6/uL Hgb 15.2 (12.0-16.0) g/dl Hct 44.8 (37.0-47.0) % MCV 95.3 (80.0-98.0) fL MCH 32.3 (27.0-33.0) pg MCHC 33.9 (31.0-35.0) g/dl RDW 13.0 (11.0-16.0) % Plt Count 281 (160-400) X10*3/uL MPV 9.8 (9.4-12.3) fL Immature Gran % (Auto) 0.6 H (0.0-0.4) % Neut % (Auto) 83.6 H (45-73) % Lymph % (Auto) 6.8 L (20-40) % [place] % (Auto) 8.9 (2-11) % Eos % (Auto) 0.0 (0-4) % Baso % (Auto) 0.1 (0-2) % Lymph # (Auto) 1.1 L (1.2-4.9) X10*3/uL [place] # (Auto) 1.4 H (0.1-1.2) X10*3/uL Eos # (Auto) 0.0 (0.0-0.4) X10*3/uL Baso # (Auto) 0.0 (0.0-0.2) X10*3/uL Abs Immat Gran (auto) 0.09 H (0.00-0.03) X10*3/uL Absolute Neuts (auto) 13.3 H (2.0-8.3) x10*3/uL Absolute Nucleated RBC 0.000 (0.0-0.012) X10*3/uL Nucleated RBC % (auto) 0.0 (0.0-0.2) /100WBC Sodium 140 (135-145) mmol/L Potassium 3.5 (3.3-5.1) mmol/L Chloride 105 (96-108) mmol/L Carbon Dioxide 27 (22-29) mmol/L Anion Gap 12 (12-20) BUN 14 (9-16) mg/dL Creatinine 0.67 (0.5-1.4) mg/dL Estim Creat Clear Calc 51.2 Estimated GFR > 60 Random Glucose 118 H (60-115) mg/dL Calcium 9.8 (8.4-10.2) mg/dL Total Bilirubin 2.2 H (0.0-1.0) mg/dL Direct Bilirubin 0.7 H (0.0-0.5) mg/dL AST 52 H (5-31) U/L ALT 30 (0-31) U/L Alkaline Phosphatase 101 (39-117) U/L Total Creatine Kinase 1756 H (26-140) U/L Troponin I High Sens 4.5 D (<3.5-17.0) ng/L B-Natriuretic Peptide 259 H (<100) pg/mL Total Protein 7.4 (6.5-8.0) g/dL Albumin 4.5 (3.5-5.0) g/dL Lipase 5 L (8-78) U/L Urine Color Yellow Urine Appearance Cloudy Urine pH 6.0 (5.0-9.0) Ur Specific [place] 1.020 (1.005-1.025) Urine Protein 30 (1+) H (Neg-Trace) mg/dL Urine Glucose (UA) Negative (Negative) mg/dL Urine Ketones 15 (Negative) mg/dL Urine Blood Moderate (2+) H (Negative) Urine Nitrite Positive H (Negative) Ur Leukocyte Esterase Trace H (Negative) Urine RBC 6-10 H (0-2) /HPF Urine WBC 11-20 H (0-5) /HPF Ur Squamous Epith Cells 0-2 (0-2) /HPF Urine Bacteria 4+ (None Seen) Hyaline Casts 0-2 (0-2) /LPF Medications Administered Discontinued Medications Generic Name Dose Route Start Last Admin Trade Name Freq PRN Reason Stop Dose Admin Sodium Chloride 1,000 mls @ 999 mls/hr 12/27/22 13:38 12/27/22 16:20 Ns IV 12/27/22 14:38 Infused .Q1H1M ONE Infusion Ceftriaxone Sodium 1 gm/ 50 mls @ 100 mls/hr 12/27/22 15:57 12/27/22 16:24 Sodium Chloride IV 12/27/22 16:26 100 mls/hr ONCE ONE Administration Morphine Sulfate 1 mg 12/27/22 15:57 12/27/22 16:15 Morphine Sulfate 2 Mg/Ml Cartridge IVPUSH 12/27/22 15:58 1 mg ONCE ONE Administration Protocol Discharge Plan Discharge Clinical Impression: Acute UTI, Rhabdomyolysis, Closed right humeral fracture Patient Disposition: Admitted As Inpatient
[2022-12-27 13:52] VITALS: TEMP 36.6
[2022-12-27] MEDS: 0.9 % Sodium Chloride 1,000 ML 999 ML IV (14:01)
[2022-12-27 14:06] LABS: MANUAL DIFF FLAG NO
[2022-12-27 14:11] LABS: Basophils Percent Auto 0.1 % (0-2); Hematocrit 44.8 % (37.0-47.0); Hemoglobin 15.2 g/dl (12.0-16.0); Imm Gran Abs Auto 0.09 X10*3/uL (0.00-0.03); Imm Gran Pct Auto 0.6 % (0.0-0.4); Lymphocytes Absolute Auto 1.1 X10*3/uL (1.2-4.9); Lymphocytes Percent Auto 6.8 % (20-40); Mean Corpuscular HGB Conc 33.9 g/dl (31.0-35.0); Mean Corpuscular Hemoglobin 32.3 pg (27.0-33.0); Mean Corpuscular Volume 95.3 fL (80.0-98.0); Mean Platelet Volume 9.8 fL (9.4-12.3); Monocytes Absolute Auto 1.4 X10*3/uL (0.1-1.2); Monocytes Percent Auto 8.9 % (2-11); Neutrophils Absolute Auto 13.3 x10*3/uL (2.0-8.3); Neutrophils Percent Auto 83.6 % (45-73); Platelet Count 281 X10*3/uL (160-400); White Blood Count 15.9 X10*3/uL (4.8-10.8)
[2022-12-27 14:27] LABS: Alanine Aminotransferase 30 U/L (0-31); Albumin Level 4.5 g/dL (3.5-5.0); Alkaline Phosphatase 101 U/L (39-117); Anion Gap 12 (12-20); Aspartate Amino Transferase 52 U/L (5-31); Bilirubin Direct 0.7 mg/dL (0.0-0.5); Bilirubin Total 2.2 mg/dL (0.0-1.0); Blood Urea Nitrogen 14 mg/dL (9-16); Calcium 9.8 mg/dL (8.4-10.2); Carbon Dioxide 27 mmol/L (22-29); Chloride 105 mmol/L (96-108); Creatinine Clr Calc Pharmacy 51.2; Estimated Glomerular Filt Rate > 60; Glucose Random 118 mg/dL (60-115); Lipase 5 U/L (8-78); Potassium 3.5 mmol/L (3.3-5.1); Sodium 140 mmol/L (135-145); Total Protein 7.4 g/dL (6.5-8.0)
[2022-12-27 14:30] LABS: Troponin-I High Sensitivity 4.5 ng/L (<3.5-17.0)
[2022-12-27 14:31] LABS: B Type Natriuretic Peptide 259 pg/mL (<100)
--- NOTE | 2022-12-27 15:06 | PC.NURSE ---
pt comes from home after a fall at home. pt has dementia, unknown downtime. IV established in pt's RAC. fluids hung per mar. pt lives alone but is taken care of by multiple caregivers (family friends). pt appears with large purple/blue bruise to upper right arm. denies pain. pt complaining of mild pain to right upper leg. pt is currently resting quietly on stretcher in no apparent distress. caregivers at bedside. rr even/unlabored. call dietrich within pt reach. plan of care ongoing.
[2022-12-27 15:21] LABS: Appearance Urine Cloudy; Color Urine Yellow; Glucose Urine UA Negative (Negative); Leukocyte Esterase Urine Trace (Negative); Nitrite Urine Positive (Negative); UMIC TRIGGER UACC YES; Urine Blood Moderate (2+) (Negative); Urine Ketones 15 mg/dL (Negative); Urine Protein 30 (1+) mg/dL (Neg-Trace)
[2022-12-27 15:27] LABS: Bacteria Urine 4+ (None Seen); Hyaline Casts Urine 0-2 /LPF (0-2); Squamous Epithelial Cell Urine 0-2 /HPF (0-2); UACC Culture Trigger YES
--- NOTE | 2022-12-27 15:51 | PC.NURSE ---
Rebecca Cell Phone (caregiver): [phone] Delma Cell Phone (caregiver): [phone]
--- NOTE | 2022-12-27 16:00 | MHC.EDTECH ---
This pct assumed care of pt at 1500 ,vitals taken ,pt was incontinent of urine ,care given ,and purewick in place ,sling and swat ,sling apply .
--- NOTE | 2022-12-27 16:01 | PC.NURSE ---
pt now reporting severe lower abdominal discomfort. pt jaw is trembling and pt appears to be in pain. provider aware, pt will be medicated per mar.
[2022-12-27] MEDS: Morphine Sulfate 2 MG/ML CARTRIDGE 1 MG IVPUSH (16:15)
[2022-12-27] MEDS: cefTRIAXone sodium 1 GM in 0.9 % Sodium Chloride 50 ML IV (16:24)
[2022-12-27 16:46] VITALS: BP 125/63; PULSE 88; RESP 16; TEMP 36.6; O2SAT 97
--- NOTE | 2022-12-27 17:22 | PC.NURSE ---
pt received one dose of IV abx before provider announced pt met septic criteria. aware. 1st set of cultures and lactic obtained and sent to lab. tech to draw second set.
[2022-12-27 17:36] VITALS: BP 114/62; PULSE 93; RESP 16; TEMP 36.7; O2SAT 98
--- NOTE | 2022-12-27 17:40 | MHC.EDTECH ---
Patient 2nd sets of blood sulture drawn and sent to lab ,vitals taken and Patient belongings list done ,Patient call dietrich within reach .
--- NOTE | 2022-12-27 18:11 | PHA.MEDREC ---
Pharmacy Consult ? Medication Reconciliation Pharmacy has completed the medication reconciliation. Patient's caregiver reports no medications at home. Patsy Castro, ArnaldoD
--- NOTE | 2022-12-27 18:23 | P.HPHOSP_ITS ---
History of Present Illness Date of Service: 12/27/22 Attending physician on admission: Minerva Cunningham Chief Complaint: Fall at home, right arm pain Pt is an 82-year-old female with an unknown PMH not on any home meds who presents to the ED by EMS after being found on the floor for an unknown period of time. Patient is alert and oriented to self only and does not know where she is or why she is here. HPI obtained from chart and provider review. Attempted to contact family to help supplement HPI and PMH but there was no answer at Primary contact's number. Patient lives alone though apparently daughter and friend frequently visit to check in on patient. Patient's baseline mentation is not known. Details of patient's fall are unclear, though it is likely she suffered a mechanical fall. In the ED patient was afebrile with pulse rate as high as 93, but normotensive and satting at 98% on RA. ED labs were significant for leukocytosis of 15.5 , bilirubin 2.2, AST 52, CPK of 1756, BNP 259. UA positive for UTI. CXR showed no evidence of acute disease in the chest. X-ray of right humerus found right humeral neck fracture. Right hip and pelvis x-ray found no acute fracture or dislocation. CT?of head found numerous chronic small-vessel ischemic changes primarily involving the periventricular white matter, but no evidence of acute territorial infarct or hemorrhage. CT of cervical spine found no evidence of acute cervical spine fracture, but [id number] neuroforaminal encroachment on multiple levels and multilevel degenerative spondylolysis with moderate canal stenosis at levels of C4-C5 and C5-C6. Abdominal ultrasound found no gallstones or biliary dilation, but slightly echogenic liver. EKG demonstrated sinus rhythm with PVCs and prolonged QTc of 495. Pt was treated with IVF, morphine, and ceftriaxone. Pt will be admitted to the hospital for treatment further evaluation of sepsis in the setting of UTI, rhabdomyolysis, and fractured right humerus. Review of Systems 2 Review of Systems: Unable to obtain due to patient's mentation [facility] Medical History HLD (hyperlipidemia) TRAMAINE (generalized anxiety disorder) Hypothyroid Family History Father Lung cancer Mother Hypertension MRSA infection Family history of thyroid problem Surgical History History of cystoscopy History of tonsillectomy History of cataract surgery History of section Social History Household Members: None Housing: House Do you presently have visiting nurse or other home services: No Alcohol intake: never Patient Tobacco Use Status: Current everyday Tobacco user Tobacco use type: Cigarette Cigarettes Per Day: 5 Smoked in Last 30 Days: Yes Patient Interested in Nicotine Replacement: No Patient Given Instructions on How to Stop Smoking: No Second Hand Smoke Exposure: No Use of substances other than those prescribed or required for medical reasons: No Currently Displaying Signs/Symptoms of Drug Intoxication Withdrawal: No Have you been hit, kicked, punched, or otherwise hurt by someone within the past year? If so, by whom?: No Do you feel safe in your current relationship?: No Current Relationship Is there a partner from a previous relationship who is making you feel unsafe now?: No Are you made to feel afraid or neglected: No Advance Directives: No Advance Directives Information Provided: Yes Do you have thoughts of harming others: None Do you have a plan to hurt others: No Plan Recently lost weight without trying: No How much weight loss: Not applicable Eating poorly because of decreased appetite: No Nutrition screen score: 0 Nutrition Risks: No Nutritional Risk Patient : No : No Poor oral hygiene: No service: No Meds Allergies Allergy/AdvReac Type Severity Reaction Status Date / Time azithromycin Allergy Unknown Unknown Verified 06/22/22 12:37 codeine Allergy Unknown Unknown Verified 06/22/22 12:37 docusate [From Colace] Allergy Unknown red rash, Verified 06/22/22 12:37 hand swelling latex [LATEX] Allergy Unknown ITCHY Verified 06/22/22 12:37 levofloxacin [Levaquin] Allergy Unknown Unknown Verified 06/22/22 12:37 oxybutynin Allergy Unknown red Verified 06/22/22 12:37 rash,hand swelling Sulfa (Sulfonamide Allergy Unknown RASH, Verified 06/22/22 12:37 Antibiotics) Hives, [SULFA (SULFONAMIDE hives ANTIBIOTICS)] Home Medications Medication Instructions Recorded Confirmed Last Taken Type No Known Home Meds 12/27/22 12/27/22 Unknown History Physical Exam 2 Vital Signs and Narrative: Vital Signs: Last Vital Signs Temp 98.0 F 12/27/22 17:36 Pulse 93 12/27/22 17:36 Resp 16 12/27/22 17:36 BP 114/62 12/27/22 17:36 Pulse Ox 98 12/27/22 17:36 O2 Del Method Room Air 12/27/22 17:36 BMI result Body Mass Index 23.7 General: Alert and oriented to self only, in no acute distress Resp: CTA bilaterally CVS: S1, S2, RRR GI: +BS, NT, no distention Skin: No rash Neuro: Cranial nerves II-XII grossly intact bilaterally. Motor grossly intact bilaterally Extremities: No edema. Right arm in sling Psych: Pleasantly confused Results Labs 12/28/22 05:43 12/28/22 05:43 Labs: Laboratory Results - last 24 hr 12/27/22 12/27/22 12/27/22 13:59 15:04 17:19 MCV 95.3 MCH 32.3 MCHC 33.9 RDW 13.0 Plt Count 281 MPV 9.8 Immature Gran % (Auto) 0.6 H Neut % (Auto) 83.6 H Lymph % (Auto) 6.8 L [place] % (Auto) 8.9 Eos % (Auto) 0.0 Baso % (Auto) 0.1 Lymph # (Auto) 1.1 L [place] # (Auto) 1.4 H Eos # (Auto) 0.0 Baso # (Auto) 0.0 Abs Immat Gran (auto) 0.09 H Absolute Neuts (auto) 13.3 H Absolute Nucleated RBC 0.000 Nucleated RBC % (auto) 0.0 Anion Gap 12 Estim Creat Clear Calc 51.2 Estimated GFR > 60 Random Glucose 118 H Lactic Acid 1.0 Calcium 9.8 Total Bilirubin 2.2 H Direct Bilirubin 0.7 H AST 52 H ALT 30 Alkaline Phosphatase 101 Total Creatine Kinase 1756 H B-Natriuretic Peptide 259 H Total Protein 7.4 Albumin 4.5 Lipase 5 L Urine Color Yellow Urine Appearance Cloudy Urine pH 6.0 Ur Specific [place] 1.020 Urine Protein 30 (1+) H Urine Glucose (UA) Negative Urine Ketones 15 Urine Blood Moderate (2+) H Urine Nitrite Positive H Ur Leukocyte Esterase Trace H Urine RBC 6-10 H Urine WBC 11-20 H Ur Squamous Epith Cells 0-2 Urine Bacteria 4+ Hyaline Casts 0-2 Imaging Radiologist's Impressions: Impressions Chest X-Ray 12/27/22 14:30 IMPRESSION: No evidence for acute disease in the chest. Hip/Pelvis X-Ray 12/27/22 14:30 IMPRESSION: No fracture or dislocation. Bilateral hip arthritis. Humerus X-Ray 12/27/22 14:30 IMPRESSION: Right humeral neck fracture. Cervical Spine CT 12/27/22 14:33 IMPRESSION: Head: There are numerous chronic small vessel ischemic changes primarily involving the periventricular white matter. Grossly no evidence of acute territorial infarct or hemorrhage. Cervical spine: There is multilevel degenerative spondylosis of the cervical spine with at least moderate canal stenosis at levels of C4-C5 and C5-C6. If there are clinical symptoms of compressive myelopathy then a dedicated cervical spine MRI can be obtained for better anatomic characterization of the cord and canal. Grossly no evidence of acute cervical spine fracture. There is mild to moderate neuroforaminal encroachment multiple levels. Head CT 12/27/22 14:33 IMPRESSION: Head: There are numerous chronic small vessel ischemic changes primarily involving the periventricular white matter. Grossly no evidence of acute territorial infarct or hemorrhage. Cervical spine: There is multilevel degenerative spondylosis of the cervical spine with at least moderate canal stenosis at levels of C4-C5 and C5-C6. If there are clinical symptoms of compressive myelopathy then a dedicated cervical spine MRI can be obtained for better anatomic characterization of the cord and canal. Grossly no evidence of acute cervical spine fracture. There is mild to moderate neuroforaminal encroachment multiple levels. Abdomen Ultrasound 12/27/22 16:03 IMPRESSION: No gallstones or biliary dilatation. Slightly echogenic liver. Assessment and Plan (1) Closed right humeral fracture: Status: Acute (2) Rhabdomyolysis: Qualifiers: Rhabdomyolysis type: non-traumatic Qualified Code(s): M62.82 - Rhabdomyolysis Status: Acute (3) Acute UTI: Status: Acute Plan Pt is an 82-year-old female with an unknown PMH not on any home meds who presents to the ED by EMS after being found on the floor for an unknown period of time. Pt will be admitted to the hospital for treatment further evaluation of sepsis in the setting of UTI, rhabdomyolysis, and fractured right humerus. Right humeral fracture Patient with likely mechanical fall at home, x-ray showing right humeral neck fracture Patient received morphine, and right arm was placed in sling in ED Will continue and analgesics for pain management Orthopedic consult to establish care PT evaluation UTI UA positive for UTI Patient meets sepsis criteria: UTI, heart rate >90, leukocytosis; lactic acid WNL at 1.0 Ceftriaxone, started 12/27/2022 Rhabdomyolysis CPK 1756 at time of presentation, elevated bilirubin, AST Patient found on floor of home, down for an unknown period of time Patient given IVF in ED Will place on maintenance fluids Follow BMP, CPK Question of encephalopathy Patient currently alert and oriented to self only, baseline mentation not known CT of head with numerous chronic periventricular white matter ischemic changes Unable to contact family Treat as above with ceftriaxone, IVF Monitor mentation Full Code (pt AOx1, cannot reach family) Attending:?Dr. Cunningham DVT Prophylaxis: Lovenox Pt will require a hospitalization of at least two nights for treatment of?sepsis in the setting of UTI, rhabdomyolysis, and fractured right humerus. Patient was treated with IVF, IV antibiotics, and specialist consultation. Quality Stroke Does the patient have a stroke diagnosis?: No VTE Prior VTE?: No VTE Risk Level:: Medical - moderate - high VTE Device Contraindication: Treatment Not Indicated VTE Drug Contraindication: N/A - Med Ordered
[2022-12-27] MEDS: 0.9 % Sodium Chloride 1,000 ML 100 ML IVCONT (19:55)
[2022-12-27] MEDS: Enoxaparin Sodium 40 MG/0.4 ML SYRINGE SUBCUT (19:56)
--- NOTE | 2022-12-27 20:52 | PC.NURSE ---
Addendum entered by Yaritza Brown 12/27/22 22:23: Nurse to nurse report given to Tracee, Pt will be transported to room 378. Original Note: This caption writer assumed care of this Pt at 1900. Pt A&O to self, denies any pain. IV fluids given per APR.
[2022-12-27 23:13] VITALS: BP 122/66; PULSE 90; RESP 18; TEMP 36; O2SAT 97
[2022-12-28 03:45] VITALS: BP 137/63; PULSE 94; RESP 18; TEMP 36.4; O2SAT 99
[2022-12-28] MEDS: 0.9 % Sodium Chloride 1,000 ML 100 ML IVCONT ×2 (05:54→14:49)
[2022-12-28 06:19] LABS: Hematocrit 39.5 % (37.0-47.0); Hemoglobin 13.7 g/dl (12.0-16.0); Mean Corpuscular HGB Conc 34.7 g/dl (31.0-35.0); Mean Corpuscular Hemoglobin 32.7 pg (27.0-33.0); Mean Corpuscular Volume 94.3 fL (80.0-98.0); Mean Platelet Volume 10.2 fL (9.4-12.3); Platelet Count 256 X10*3/uL (160-400); Red Blood Count 4.19 X10*6/uL (4.20-5.50); Red Cell Distribution Width 12.9 % (11.0-16.0); White Blood Count 13.5 X10*3/uL (4.8-10.8)
[2022-12-28 06:36] LABS: Anion Gap 13 (12-20); Blood Urea Nitrogen 13 mg/dL (9-16); Calcium 8.7 mg/dL (8.4-10.2); Carbon Dioxide 23 mmol/L (22-29); Chloride 108 mmol/L (96-108); Creatinine Clr Calc Pharmacy 52.7; Estimated Glomerular Filt Rate > 60; Glucose Random 90 mg/dL (60-115); Potassium 3.3 mmol/L (3.3-5.1); Sodium 141 mmol/L (135-145)
[2022-12-28 07:35] VITALS: BP 116/81; PULSE 80; RESP 20; TEMP 36.5; O2SAT 98
--- NOTE | 2022-12-28 08:39 | P.CONOP_ITS ---
History of Present Illness HPI Consult date: 12/28/22 Chief complaint: Right humeral fracture, rhabdomyolysis, UTI Narrative: s/p right humerus fracture complains of pain Alert and oriented [facility] Past Medical History Medical History HLD (hyperlipidemia) TRAMAINE (generalized anxiety disorder) Hypothyroid Family History Family History Father Lung cancer Mother Hypertension MRSA infection Family history of thyroid problem Surgical History Surgical History History of cystoscopy History of tonsillectomy History of cataract surgery History of section Social History Social History Household Members: None Housing: House Do you presently have visiting nurse or other home services: No Alcohol intake: never Patient Tobacco Use Status: Current everyday Tobacco user Tobacco use type: Cigarette Cigarettes Per Day: 5 Smoked in Last 30 Days: Yes Patient Interested in Nicotine Replacement: No Patient Given Instructions on How to Stop Smoking: No Second Hand Smoke Exposure: No Use of substances other than those prescribed or required for medical reasons: No Currently Displaying Signs/Symptoms of Drug Intoxication Withdrawal: No Have you been hit, kicked, punched, or otherwise hurt by someone within the past year? If so, by whom?: No Do you feel safe in your current relationship?: No Current Relationship Is there a partner from a previous relationship who is making you feel unsafe now?: No Are you made to feel afraid or neglected: No Advance Directives: No Advance Directives Information Provided: Yes Do you have thoughts of harming others: None Do you have a plan to hurt others: No Plan Recently lost weight without trying: No How much weight loss: Not applicable Eating poorly because of decreased appetite: No Nutrition screen score: 0 Nutrition Risks: No Nutritional Risk Patient : No : No Poor oral hygiene: No Meds Allergies Allergy/AdvReac Type Severity Reaction Status Date / Time azithromycin Allergy Unknown Unknown Verified 06/22/22 12:37 codeine Allergy Unknown Unknown Verified 06/22/22 12:37 docusate [From Colace] Allergy Unknown red rash, Verified 06/22/22 12:37 hand swelling latex [LATEX] Allergy Unknown ITCHY Verified 06/22/22 12:37 levofloxacin [Levaquin] Allergy Unknown Unknown Verified 06/22/22 12:37 oxybutynin Allergy Unknown red Verified 06/22/22 12:37 rash,hand swelling Sulfa (Sulfonamide Allergy Unknown RASH, Verified 06/22/22 12:37 Antibiotics) Hives, [SULFA (SULFONAMIDE hives ANTIBIOTICS)] Active Medications: Current Medications Acetaminophen (Acetaminophen 325 Mg Tablet) 650 mg PO Q6H PRN PRN Reason: Pain, Mild (Pain Scale 1-3) Enoxaparin Sodium (Enoxaparin Sodium 40 Mg/0.4 Ml Syringe) 40 mg SUBCUT Q24H [facility] Last Admin: 12/27/22 19:56 Dose: 40 mg Ceftriaxone Sodium 1 gm/ (Sodium Chloride) 50 mls @ 100 mls/hr IV Q24H [facility] Sodium Chloride (Ns) 1,000 mls @ 100 mls/hr IVCONT .Q10H [facility] [place] Last Admin: 12/28/22 05:54 Dose: 100 mls/hr Melatonin (Melatonin 3 Mg Tablet) 6 mg PO BEDTIME PRN PRN Reason: Insomnia Morphine Sulfate (Morphine Sulfate 2 Mg/Ml Cartridge) 1 mg IVPUSH Q4H PRN; Protocol PRN Reason: Pain, Severe (Pain Scale 7-10) Sodium Chloride (0.9 % Sodium Chloride Flush 3 Ml Syringe) 3 ml IVFLUSH QSHIFT [facility] [place] Last Admin: 12/28/22 07:04 Dose: Not Given Home Medications Medication Instructions Recorded Confirmed Last Taken Type No Known Home Meds 12/27/22 12/27/22 Unknown History Physical Exam 2 Vital Signs: Vital Signs: Last Vital Signs Temp 97.7 F 12/28/22 07:35 Pulse 80 12/28/22 07:35 Resp 20 12/28/22 07:35 BP 116/81 12/28/22 07:35 Pulse Ox 98 12/28/22 07:35 O2 Del Method Room Air 12/28/22 07:35 BMI result Body Mass Index 23.7 Extrem: Other: silt lateral deltoid bruising present Firing EPL/IO/FDP Results Labs 12/28/22 05:43 12/28/22 05:43 Labs: Abnormal lab results 12/27/22 12/27/22 12/28/22 Range/Units 13:59 15:04 05:43 WBC 15.9 H 13.5 H (4.8-10.8) X10*3/uL RBC 4.19 L (4.20-5.50) X10*6/uL Immature Gran % (Auto) 0.6 H (0.0-0.4) % Neut % (Auto) 83.6 H (45-73) % Lymph % (Auto) 6.8 L (20-40) % Lymph # (Auto) 1.1 L (1.2-4.9) X10*3/uL [place] # (Auto) 1.4 H (0.1-1.2) X10*3/uL Abs Immat Gran (auto) 0.09 H (0.00-0.03) X10*3/uL Absolute Neuts (auto) 13.3 H (2.0-8.3) x10*3/uL Random Glucose 118 H (60-115) mg/dL Total Bilirubin 2.2 H (0.0-1.0) mg/dL Direct Bilirubin 0.7 H (0.0-0.5) mg/dL AST 52 H (5-31) U/L Total Creatine Kinase 1756 H 2042 H (26-140) U/L B-Natriuretic Peptide 259 H (<100) pg/mL Lipase 5 L (8-78) U/L Urine Protein 30 (1+) H (Neg-Trace) mg/dL Urine Blood Moderate (2+) H (Negative) Urine Nitrite Positive H (Negative) Ur Leukocyte Esterase Trace H (Negative) Urine RBC 6-10 H (0-2) /HPF Urine WBC 11-20 H (0-5) /HPF H & H 12/27/22 12/28/22 Range/Units 13:59 05:43 Hgb 15.2 13.7 (12.0-16.0) g/dl Hct 44.8 39.5 (37.0-47.0) % All other labs normal. Diagnostic results Shoulder x-ray: image reviewed (impacted proximal humerus fracdture, 3 part) Assessment and Plan (1) Closed right humeral fracture: Status: Acute Plan Right humerus fracture. Surgery NOT indicated Sling and PT as outpatient Procedures Date of Service Date of Service: 12/28/22
[2022-12-28 10:35] VITALS: BP 116/81; PULSE 80; O2SAT 98
--- NOTE | 2022-12-28 13:49 | MHC.CM.PN ---
Addendum entered by Brina Nagel 12/28/22 13:52: Nilda [phone] Original Note: CM RECEIVED A CALL FROM PTS SON/HCP, SARAY DAHL HE EMAILED T/W A COPY OF THE PTS HCP AND POA, NOW ON FILE HE REPORTS SHE WAS LIVING ALONE [employer] AND HAD NO FORMAL SERVICES THERE IS A NEIGHBOR THAT ASSISTS HER DAILY AND ANOTHER WHO CHECKS IN HE REPORTS THE PT WAS NOT USING ANY DME [employer] HE DOES NOT KNOW THE NAME OF HER PCP HOWEVER PER EMR, SHE HAS SEEN [facility] CM WILL CONFIRM PCP SARAY IS AWARE PT WILL NEED STR PLACEMENT REFERRALS ARE OUT HE DID HAVE QUESTIONS ABOUT HOME SERVICES IN THE FUTURE AND [place] PER DISCUSSION, REFERRALS WERE MADE TO [facility] AND [facility] AND QUESTIONS WERE DEFERRED TO THEM. IMM DELIVERED AND A COPY WAS EMAILED TO HIM AT [email or web address] PT WILL NEED BLS TRANSPORT
[2022-12-28 15:15] VITALS: BP 135/59; PULSE 88; RESP 20; TEMP 36.2; O2SAT 97
--- NOTE | 2022-12-28 15:20 | HO.PM.IMPN ---
Subjective Subjective Date of Service: 12/28/22 Interval History: Seen and evaluated this morning feels better but overall confused No fever or chills Arm in sling Review of Systems Review of Systems: Yes all other systems are reviewed and are negative Physical Exam Vital Signs: Vital Signs: Last Vital Signs Temp 97.2 F 12/28/22 15:15 Pulse 88 12/28/22 15:15 Resp 20 12/28/22 15:15 BP 135/59 L 12/28/22 15:15 Pulse Ox 97 12/28/22 15:15 O2 Del Method Room Air 12/28/22 15:15 BMI result Body Mass Index 23.7 Const: Other: Constitutional : Awake, interactive, not in distress Neck : Normal inspection, Supple Cardiovascular : RRR, no JVP, no lower extremity edema Respiratory : good bilateral air entry, no crackles, wheezes or rhonchi Gastrointestinal: soft, lax, Normal bowel sounds, Non tender Skin : Warm, Dry Ext: rt Arm in sling Neurological : Alert & disoriented x3, No focal deficit Objective Data Active Medications Acetaminophen (Acetaminophen 325 Mg Tablet) 650 mg PO Q6H PRN PRN Reason: Pain, Mild (Pain Scale 1-3) Enoxaparin Sodium (Enoxaparin Sodium 40 Mg/0.4 Ml Syringe) 40 mg SUBCUT Q24H [facility] Last Admin: 12/27/22 19:56 Dose: 40 mg Documented By: PREETI Ceftriaxone Sodium 1 gm/ (Sodium Chloride) 50 mls @ 100 mls/hr IV Q24H [facility] Sodium Chloride (Ns) 1,000 mls @ 100 mls/hr IVCONT .Q10H [facility] Last Admin: 12/28/22 14:49 Dose: 100 mls/hr Documented By: SHIRLEY Melatonin (Melatonin 3 Mg Tablet) 6 mg PO BEDTIME PRN PRN Reason: Insomnia Morphine Sulfate (Morphine Sulfate 2 Mg/Ml Cartridge) 1 mg IVPUSH Q4H PRN; Protocol PRN Reason: Pain, Severe (Pain Scale 7-10) Sodium Chloride (0.9 % Sodium Chloride Flush 3 Ml Syringe) 3 ml IVFLUSH QSHIFT [facility] Last Admin: 12/28/22 07:04 Dose: Not Given Documented By: SHIRLEY Non-Admin Reason: IV Running Labs 12/28/22 05:43 12/28/22 05:43 Labs: Laboratory Results - last 24 hr 12/27/22 12/27/22 12/28/22 15:04 17:19 05:43 MCV 94.3 MCH 32.7 MCHC 34.7 RDW 12.9 Plt Count 256 MPV 10.2 Absolute Nucleated RBC 0.000 Nucleated RBC % (auto) 0.0 Anion Gap 13 Estim Creat Clear Calc 52.7 Estimated GFR > 60 Random Glucose 90 Lactic Acid 1.0 Calcium 8.7 D Total Creatine Kinase 2042 H Urine Color Yellow Urine Appearance Cloudy Urine pH 6.0 Ur Specific [place] 1.020 Urine Protein 30 (1+) H Urine Glucose (UA) Negative Urine Ketones 15 Urine Blood Moderate (2+) H Urine Nitrite Positive H Ur Leukocyte Esterase Trace H Urine RBC 6-10 H Urine WBC 11-20 H Ur Squamous Epith Cells 0-2 Urine Bacteria 4+ Hyaline Casts 0-2 Microbiology Microbiology Results: Microbiology 12/27/22 15:52 Urine Culture - Preliminary Urine clean catch - Urine ch top Gram negative jolie Assessment and Plan (1) Closed right humeral fracture: Status: Acute (2) Rhabdomyolysis: Status: Acute (3) Acute UTI: Status: Acute (4) Sepsis: Status: Acute Plan Pt is an 82-year-old female with an unknown PMH not on any home meds who presents to the ED by EMS after being found on the floor for an unknown period of time. Pt will be admitted to the hospital for treatment further evaluation of sepsis in the setting of UTI, rhabdomyolysis, and fractured right humerus. Right humeral fracture 2/2 mechanical fall x-ray showing right humeral neck fracture right arm was placed in sling analgesics for pain management Orthopedic input appreciated PT evaluation Sepsis 2/2 UTI Pending cultures Ceftriaxone, started 12/27/2022 Rhabdomyolysis CPK 2000 IVF maintenance fluids Follow BMP, CPK Toxic metabolic encephalopathy unable to reach family Unclear baseline . currently alert and oriented to self only CT of head with numerous chronic periventricular white matter ischemic changes ceftriaxone, IVF Monitor mentation Full Code DVT Prophylaxis: Lovenox Pt will require a hospitalization of overnight for treatment of?sepsis in the setting of UTI, rhabdomyolysis, and fractured right humerus. Patient was treated with IVF, IV antibiotics, and specialist consultation. Quality Stroke Does the patient have a stroke diagnosis?: No VTE Prior VTE?: No VTE Risk Level:: Medical - moderate - high VTE Device Contraindication: Treatment Not Indicated VTE Drug Contraindication: N/A - Med Ordered
[2022-12-28] MEDS: Acetaminophen 325 MG TABLET 650 MG PO (16:11)
[2022-12-28] MEDS: cefTRIAXone sodium 1 GM in 0.9 % Sodium Chloride 50 ML IV (16:12)
[2022-12-28 19:25] VITALS: BP 116/56; PULSE 87; RESP 18; TEMP 36.2; O2SAT 98
[2022-12-28] MEDS: Enoxaparin Sodium 40 MG/0.4 ML SYRINGE SUBCUT (19:51)
[2022-12-29] MEDS: 0.9 % Sodium Chloride 1,000 ML 100 ML IVCONT (00:17)
[2022-12-29] MEDS: Acetaminophen 325 MG TABLET 650 MG PO ×4 (03:34→22:13)
[2022-12-29 03:43] VITALS: BP 124/56; PULSE 97; RESP 17; TEMP 36.1; O2SAT 94
[2022-12-29] MEDS: Morphine Sulfate 2 MG/ML CARTRIDGE 1 MG IVPUSH ×2 (05:28→23:46)
[2022-12-29 05:49] LABS: Hematocrit 36.5 % (37.0-47.0); Hemoglobin 12.2 g/dl (12.0-16.0); Mean Corpuscular HGB Conc 33.4 g/dl (31.0-35.0); Mean Corpuscular Hemoglobin 31.6 pg (27.0-33.0); Mean Corpuscular Volume 94.6 fL (80.0-98.0); Mean Platelet Volume 10.1 fL (9.4-12.3); Platelet Count 234 X10*3/uL (160-400); Red Blood Count 3.86 X10*6/uL (4.20-5.50); Red Cell Distribution Width 13.2 % (11.0-16.0); White Blood Count 10.2 X10*3/uL (4.8-10.8)
[2022-12-29 06:08] LABS: Anion Gap 10 (12-20); Blood Urea Nitrogen 12 mg/dL (9-16); Calcium 8.2 mg/dL (8.4-10.2); Carbon Dioxide 23 mmol/L (22-29); Chloride 111 mmol/L (96-108); Creatinine Clr Calc Pharmacy 56.2; Estimated Glomerular Filt Rate > 60; Glucose Random 99 mg/dL (60-115); Potassium 2.9 mmol/L (3.3-5.1); Sodium 141 mmol/L (135-145)
[2022-12-29 07:39] VITALS: BP 130/61; PULSE 80; RESP 20; TEMP 36.4; O2SAT 97
[2022-12-29] MEDS: Potassium Chloride Packet 20 MEQ PACKET 40 MEQ PO (08:07)
[2022-12-29] MEDS: Omeprazole 20 MG CAPSULE.DR PO (10:46)
--- NOTE | 2022-12-29 11:34 | MHC.CM.PN ---
PER MD ROUNDS, PT EXPECTED TO DC TOMORROW TO [facility] HAS ALREADY INDICATED THEY WILL NOT HAVE A BED [facility] AND [facility] ARE ALL OFFERING PENDING BED AVAILABILITY SNFS UPDATED
[2022-12-29] MEDS: Ibuprofen 200 MG TABLET PO ×2 (11:42→17:32)
--- NOTE | 2022-12-29 13:02 | P.CDIM_ITS ---
PROVIDER RESPONSE TEXT: To clarify, the appropriate diagnosis supported by the clinical indicators: Sepsis is/was present and is a clinical diagnosis based on QUERY TEXT: PHYSICIAN'S DOCUMENTATION REQUEST Date of Query: 12/29/2022 12:22 PM EST Patient Name: MICHAEL DAHL Admit Date: 12/28/2022 Dear Minerva Cunningham, A review of the medical record indicates additional documentation may be needed. Please review below and update the documentation accordingly. The patient's infectious clinical indicators include: ED 12/27 - Met criteria for severe sepsis elevated total bilirubin, IV antibiotics, consider b/c and la. H&P - admit for evaluation of sepsis in the setting of UTI, rhabdomyolysis and fracture right humerus . WBC 15.5 LA 1.0 TEMP 98 HR 90 RR 16 Ceftriaxone started 12/27 PN 12/28 - Sepsis 2/2 UTI, pending cultures Sepsis Systemic manifestations of infection, with 2 or more SIRS criteria which include: Fever > 100.4?F or hypothermia < 96.8?F Leukocytosis - WBC > 12,000 or leukopenia, WBC < 4,000, or > 10% bands Tachycardia- > 90 beats/minute Tachypnea- RR > 20 breaths/minute or PaCO2 < 32mmHg Based on the above information and the recognized standard for sepsis, could you please clarify if th is diagnoses is still accurate and reflective of the patient's condition to ensure quality of the medical record. Sepsis is/was present and is a clinical diagnosis based on After study (the condition) has been ruled out Other (explain) Clinically unable to determine (explain) Thank you, Rosalia Roy, CCS, CDIS Use of terms such as suspected, likely, concern for, or probable (associated with a specific diagnosi s that is being evaluated, monitored, or treated as if it exists) are acceptable and can be coded in the inpatient se tting, when documented at the time of discharge. Please use your independent medical judgment in providing your response. THIS QUERY IS PART OF THE PERMANENT MEDICAL RECORD
--- NOTE | 2022-12-29 13:02 | P.CDIM_ITS ---
PROVIDER RESPONSE TEXT: To clarify, the appropriate diagnosis supported by the clinical indicators: Traumatic Rhabdomyolysis QUERY TEXT: PHYSICIAN'S DOCUMENTATION REQUEST Date of Query: 12/29/2022 08:24 AM EST Patient Name: MICHAEL DAHL Admit Date: 12/28/2022 Dear Minerva Cunningham, A review of the medical record indicates additional documentation may be needed. Please review below and update the documentation accordingly. Clinical Indicators: PN: Rhabdomyolysis Fell at home, down for unknown amount of time, CPK 1756 IVF in ED Based on the above, could you clarify the appropriate diagnosis, if significant, that supports the ab ove abnormalities and additional evaluation, monitoring, and/or treatment rendered: Traumatic Rhabdomyolysis Nontraumatic Rhabdomyolysis Other Other (explain) Clinically unable to determine (explain) Thank you, Rosalia Roy, CCS, CDIS Use of terms such as suspected, likely, concern for, or probable (associated with a specific diagnosi s that is being evaluated, monitored, or treated as if it exists) are acceptable and can be coded in the inpatient se tting, when documented at the time of discharge. Please use your independent medical judgment in providing your response. THIS QUERY IS PART OF THE PERMANENT MEDICAL RECORD
--- NOTE | 2022-12-29 13:02 | P.CDIM_ITS ---
PROVIDER RESPONSE TEXT: To clarify, the appropriate diagnosis supported by the clinical indicators: Hypokalemia QUERY TEXT: PHYSICIAN'S DOCUMENTATION REQUEST Date of Query: 12/29/2022 08:31 AM EST Patient Name: MICHAEL DAHL Admit Date: 12/28/2022 Dear Minerva Cunningham, A review of the medical record indicates additional documentation may be needed. Please review below and update the documentation accordingly. Clinical Indicators: LAB FINDINGS: potassium 2.9 L Klor-Con Based on the above, is there a diagnosis that correlates with these lab findings: Hypokalemia Labs indicate a diagnosis of (please specify) Other (explain) Clinically unable to determine (explain) Thank you, Rosalia Roy, CCS, CDIS Use of terms such as suspected, likely, concern for, or probable (associated with a specific diagnosi s that is being evaluated, monitored, or treated as if it exists) are acceptable and can be coded in the inpatient se tting, when documented at the time of discharge. Please use your independent medical judgment in providing your response. THIS QUERY IS PART OF THE PERMANENT MEDICAL RECORD
[2022-12-29 15:20] VITALS: BP 123/56; PULSE 87; RESP 18; TEMP 36.4; O2SAT 96
--- NOTE | 2022-12-29 15:39 | HO.PM.IMPN ---
Subjective Subjective Date of Service: 12/29/22 Interval History: Seen and evaluated this morning more alert and interactive No fever or chills Arm in sling , complaining of pain Review of Systems Review of Systems: Yes all other systems are reviewed and are negative Physical Exam Vital Signs: Vital Signs: Last Vital Signs Temp 97.5 F 12/29/22 15:20 Pulse 87 12/29/22 15:20 Resp 18 12/29/22 15:20 BP 123/56 L 12/29/22 15:20 Pulse Ox 96 12/29/22 15:20 O2 Del Method Room Air 12/29/22 15:20 BMI result Body Mass Index 23.7 Const: Other: Constitutional : Awake, interactive, not in distress Neck : Normal inspection, Supple Cardiovascular : RRR, no JVP, no lower extremity edema Respiratory : good bilateral air entry, no crackles, wheezes or rhonchi Gastrointestinal: soft, lax, Normal bowel sounds, Non tender Skin : Warm, Dry Ext: rt Arm in sling Neurological : Alert & oriented to self and place, No focal deficit Objective Data Active Medications Acetaminophen (Acetaminophen 325 Mg Tablet) 650 mg PO Q6H [facility] Last Admin: 12/29/22 10:46 Dose: 650 mg Documented By: SHIRLEY Enoxaparin Sodium (Enoxaparin Sodium 40 Mg/0.4 Ml Syringe) 40 mg SUBCUT Q24H [facility] Last Admin: 12/28/22 19:51 Dose: 40 mg Documented By: THOMAS Ceftriaxone Sodium 1 gm/ (Sodium Chloride) 50 mls @ 100 mls/hr IV Q24H [facility] Last Infusion: 12/28/22 16:57 Dose: Infused Documented By: SHIRLEY Ibuprofen (Ibuprofen 200 Mg Tablet) 200 mg PO TIDWM [facility] Last Admin: 12/29/22 11:42 Dose: 200 mg Documented By: SHIRLEY Melatonin (Melatonin 3 Mg Tablet) 6 mg PO BEDTIME PRN PRN Reason: Insomnia Morphine Sulfate (Morphine Sulfate 2 Mg/Ml Cartridge) 1 mg IVPUSH Q4H PRN; Protocol PRN Reason: Pain, Severe (Pain Scale 7-10) Last Admin: 12/29/22 05:28 Dose: 1 mg Documented By: TOHMAS Omeprazole (Omeprazole 20 Mg Sharri.) 20 mg PO DAILY@0630 [facility] Last Admin: 12/29/22 10:46 Dose: 20 mg Documented By: SHIRLEY Sodium Chloride (0.9 % Sodium Chloride Flush 3 Ml Syringe) 3 ml IVFLUSH QSHIFT [facility] Last Admin: 12/29/22 07:20 Dose: Not Given Documented By: SHIRLEY Non-Admin Reason: IV Running Labs 12/29/22 05:08 12/29/22 05:08 Labs: Laboratory Results - last 24 hr 12/29/22 12/29/22 12/29/22 05:08 05:08 05:08 MCV 94.6 MCH 31.6 MCHC 33.4 RDW 13.2 Plt Count 234 MPV 10.1 Absolute Nucleated RBC 0.000 Nucleated RBC % (auto) 0.0 Anion Gap 10 L Cancelled Estim Creat Clear Calc 56.2 Cancelled Estimated GFR > 60 Random Glucose Calcium Total Creatine Kinase 12/29/22 12/29/22 12/29/22 05:08 05:08 05:08 MCV MCH MCHC RDW Plt Count MPV Absolute Nucleated RBC Nucleated RBC % (auto) Anion Gap Estim Creat Clear Calc Estimated GFR Cancelled Random Glucose 99 Cancelled Calcium 8.2 L Cancelled Total Creatine Kinase 1340 H Microbiology Microbiology Results: Microbiology 12/27/22 15:52 Urine Culture - Final Urine clean catch - Urine ch top Escherichia coli 12/27/22 17:35 Blood Culture - Preliminary Blood - Venous No growth after 24 hours. 12/27/22 17:19 Blood Culture - Preliminary Blood - Venous No growth after 24 hours. Assessment and Plan (1) Sepsis: Status: Acute (2) Closed right humeral fracture: Status: Acute (3) Rhabdomyolysis: Status: Acute (4) Acute UTI: Status: Acute Plan Pt is an 82-year-old female with an unknown PMH not on any home meds who presents to the ED by EMS after being found on the floor for an unknown period of time. Pt will be admitted to the hospital for treatment further evaluation of sepsis in the setting of UTI, rhabdomyolysis, and fractured right humerus. Right humeral fracture 2/2 mechanical fall x-ray showing right humeral neck fracture right arm was placed in sling analgesics for pain management Orthopedic input appreciated PT evaluation Sepsis 2/2 UTI E.Coli cultures Ceftriaxone, started 12/27/2022 Rhabdomyolysis CPK trending down DC IVF Follow BMP, CPK Toxic metabolic encephalopathy unable to reach family Unclear baseline . currently alert and oriented to self only CT of head with numerous chronic periventricular white matter ischemic changes ceftriaxone, IVF Monitor mentation Full Code DVT Prophylaxis: Lovenox Pt will require a hospitalization of overnight for treatment of?sepsis in the setting of UTI, rhabdomyolysis, and fractured right humerus. Patient was treated with IVF, IV antibiotics, and specialist consultation. Quality Stroke Does the patient have a stroke diagnosis?: No VTE Prior VTE?: No VTE Risk Level:: Medical - moderate - high VTE Device Contraindication: Treatment Not Indicated VTE Drug Contraindication: N/A - Med Ordered
[2022-12-29] MEDS: 0.9 % Sodium Chloride Flush 3 ML SYRINGE IVFLUSH ×2 (16:35→20:00)
[2022-12-29] MEDS: cefTRIAXone sodium 1 GM in 0.9 % Sodium Chloride 50 ML IV (16:35)
[2022-12-29 19:16] VITALS: BP 94/51; PULSE 84; RESP 18; TEMP 36.3; O2SAT 95
[2022-12-29] MEDS: Enoxaparin Sodium 40 MG/0.4 ML SYRINGE SUBCUT (20:00)
[2022-12-29] MEDS: Melatonin 3 MG TABLET 6 MG PO (22:13)
[2022-12-30 00:23] VITALS: RESP 16
[2022-12-30 03:18] VITALS: BP 126/84; PULSE 94; RESP 17; TEMP 36.2; O2SAT 96
[2022-12-30] MEDS: Acetaminophen 325 MG TABLET 650 MG PO ×2 (04:20→10:39)
[2022-12-30] MEDS: Omeprazole 20 MG CAPSULE.DR PO (05:22)
[2022-12-30 06:21] LABS: Anion Gap 11 (12-20); Blood Urea Nitrogen 9 mg/dL (9-16); Calcium 8.4 mg/dL (8.4-10.2); Carbon Dioxide 22 mmol/L (22-29); Chloride 108 mmol/L (96-108); Creatinine Clr Calc Pharmacy 51.9; Estimated Glomerular Filt Rate > 60; Glucose Random 107 mg/dL (60-115); Potassium 3.1 mmol/L (3.3-5.1); Sodium 138 mmol/L (135-145)
[2022-12-30] MEDS: Morphine Sulfate 2 MG/ML CARTRIDGE 1 MG IVPUSH (06:42)
[2022-12-30 07:35] VITALS: BP 133/63; PULSE 85; RESP 15; TEMP 36.6; O2SAT 96
[2022-12-30] MEDS: Potassium Chloride Packet 20 MEQ PACKET 40 MEQ PO (07:51)
[2022-12-30] MEDS: Ibuprofen 200 MG TABLET PO ×2 (07:51→12:25)
[2022-12-30] MEDS: 0.9 % Sodium Chloride Flush 3 ML SYRINGE IVFLUSH (07:52)
--- NOTE | 2022-12-30 10:40 | MHC.CM.PN ---
CM MET WITH PT AND SON AT BEDSIDE CM EXPLAINED STR IS BEING RECOMMENDED PT RESISTANT HOWEVER AGREEABLE ONCE DISCUSSED FURTHER PT AND FAMILY HAVE AGREED TO STR AT [facility] TRANSPORT BOOKED FOR 1400 HOURS
--- NOTE | 2022-12-30 11:49 | PM.DS ---
DS: Providers Provider Date of Service: 12/30/22 Date of admission: 12/27/22 19:23 Primary care physician: Niall Cain PA-C Consults: 12/27/22 19:41 Consult to Orthopedics Routine Consulting Provider: [facility] Reason for consultation: Right humeral neck fracture, to establish care DS: Diagnosis Discharge Diagnosis (1) Sepsis: Status: Acute (2) Closed right humeral fracture: Status: Acute (3) Rhabdomyolysis: Status: Acute (4) Acute UTI: Status: Acute (5) Fall: Status: Acute DS: Summary Hospital Course Hospital Course: Admission note HPI Pt is an 82-year-old female with an unknown PMH not on any home meds who presents to the ED by EMS after being found on the floor for an unknown period of time. Patient is alert and oriented to self only and does not know where she is or why she is here. HPI obtained from chart and provider review. Attempted to contact family to help supplement HPI and PMH but there was no answer at Primary contact's number. Patient lives alone though apparently daughter and friend frequently visit to check in on patient. Patient's baseline mentation is not known. Details of patient's fall are unclear, though it is likely she suffered a mechanical fall. In the ED patient was afebrile with pulse rate as high as 93, but normotensive and satting at 98% on RA. ED labs were significant for leukocytosis of 15.5 , bilirubin 2.2, AST 52, CPK of 1756, BNP 259. UA positive for UTI. CXR showed no evidence of acute disease in the chest. X-ray of right humerus found right humeral neck fracture. Right hip and pelvis x-ray found no acute fracture or dislocation. CT?of head found numerous chronic small-vessel ischemic changes primarily involving the periventricular white matter, but no evidence of acute territorial infarct or hemorrhage. CT of cervical spine found no evidence of acute cervical spine fracture, but [id number]-rs-shmnsorb neuroforaminal encroachment on multiple levels and multilevel degenerative spondylolysis with moderate canal stenosis at levels of C4-C5 and C5-C6. Abdominal ultrasound found no gallstones or biliary dilation, but slightly echogenic liver. EKG demonstrated sinus rhythm with PVCs and prolonged QTc of 495. Pt was treated with IVF, morphine, and ceftriaxone. Pt will be admitted to the hospital for treatment further evaluation of sepsis in the setting of UTI, rhabdomyolysis, and fractured right humerus. Hospital course # Right humeral fracture 2/2 mechanical fall x-ray showing right humeral neck fracture. right arm was placed in sling Seen by Orthopedic dr Gooden who recommended out patient follow up. # Sepsis 2/2 UTI E.Coli in urine cultures. Treated with Ceftriaxone, started 12/27/2022. To finish Ceftin on discharge # Rhabdomyolysis Treated IV fluids with no kidney injury and CPK trended down # Toxic metabolic encephalopathy Family reported patient having demetia at baseline. Improved during hospital stay. currently alert and oriented to self and place. CT of head with numerous chronic periventricular white matter ischemic changes. Tylenol and Advil for pain control Continue Ceftin for 3 more days Physical therapy at nursing facility To follow with Orthopedics team as outpatient Time Attestation Discharge coordination time: Greater than 30 minutes Quality: Safe Use of Opioids Does Pt have an Active Cancer Diagnosis on the Problem List?: No Quality: Stroke Does the patient have a stroke diagnosis?: No Physical Exam Vital Signs: Vital Signs: Last Vital Signs Temp 97.8 F 12/30/22 07:35 Pulse 85 12/30/22 07:35 Resp 15 12/30/22 07:35 BP 133/63 12/30/22 07:35 Pulse Ox 96 12/30/22 07:35 O2 Del Method Room Air 12/30/22 07:35 BMI result Body Mass Index 23.7 Const: Other: Constitutional : Awake, interactive, not in distress Neck : Normal inspection, Supple Cardiovascular : RRR, no JVP, no lower extremity edema Respiratory : good bilateral air entry, no crackles, wheezes or rhonchi Gastrointestinal: soft, lax, Normal bowel sounds, Non tender Skin : Warm, Dry Ext: rt Arm in sling Neurological : Alert & oriented to self and place, No focal deficit DS: Data Data Completed and Pending Labs on day of discharge: Laboratory Results - last 24 hr 12/30/22 12/30/22 05:58 06:04 Hold Purple Top SEE NOTE Sodium 138 Potassium 3.1 L Chloride 108 Carbon Dioxide 22 Anion Gap 11 L BUN 9 Creatinine 0.66 Estim Creat Clear Calc 51.9 Estimated GFR > 60 Random Glucose 107 Calcium 8.4 Preliminary micro results at discharge 12/27/22 17:35 Blood Culture - Preliminary Blood - Venous No growth after 48 hours. 12/27/22 17:19 Blood Culture - Preliminary Blood - Venous No growth after 48 hours. Imaging Chest x-ray: Radiologist's impression: ITS Impressions Chest X-Ray 12/27/22 14:30 IMPRESSION: No evidence for acute disease in the chest. Hip/Pelvis X-Ray 12/27/22 14:30 IMPRESSION: No fracture or dislocation. Bilateral hip arthritis. Humerus X-Ray 12/27/22 14:30 IMPRESSION: Right humeral neck fracture. Cervical Spine CT 12/27/22 14:33 IMPRESSION: Head: There are numerous chronic small vessel ischemic changes primarily involving the periventricular white matter. Grossly no evidence of acute territorial infarct or hemorrhage. Cervical spine: There is multilevel degenerative spondylosis of the cervical spine with at least moderate canal stenosis at levels of C4-C5 and C5-C6. If there are clinical symptoms of compressive myelopathy then a dedicated cervical spine MRI can be obtained for better anatomic characterization of the cord and canal. Grossly no evidence of acute cervical spine fracture. There is mild to moderate neuroforaminal encroachment multiple levels. Head CT 12/27/22 14:33 IMPRESSION: Head: There are numerous chronic small vessel ischemic changes primarily involving the periventricular white matter. Grossly no evidence of acute territorial infarct or hemorrhage. Cervical spine: There is multilevel degenerative spondylosis of the cervical spine with at least moderate canal stenosis at levels of C4-C5 and C5-C6. If there are clinical symptoms of compressive myelopathy then a dedicated cervical spine MRI can be obtained for better anatomic characterization of the cord and canal. Grossly no evidence of acute cervical spine fracture. There is mild to moderate neuroforaminal encroachment multiple levels. Abdomen Ultrasound 12/27/22 16:03 IMPRESSION: No gallstones or biliary dilatation. Slightly echogenic liver. Discharge Plan Discharge Anticipated Discharge Date/Time: 12/30/22 11:42 Patient Disposition: Xfer SNF Discharge Diagnosis: Urine infection Humorous fracture Referrals: Niall Cain PA-C [Primary Care Provider] - 1 Week Discharge Medications: New cefuroxime axetil 500 mg tablet 500 mg PO BID Qty: 6 0RF Discharge Orders: Discharge Order (Routine); Ordered 12/30/22 Ordered By: Minerva Cunningham Diet: Advance to usual diet Activity on Discharge: As tolerated Stand Alone Forms: Patient Portal Discharge page Care Plan Goals: Read below Health Concerns: Read below Plan of Treatment: Read below Assessment: You were admitted for treatment of altered mentation and fall. found to have urine infection and right humorous fracture evaluated by orthopedics team. Continue Ceftin for 3 more days Physical therapy at nursing facility To follow with Orthopedics team as outpatient
== END 2022-12-30 14:18 | disposition skilled nursing facility (03) | DRG 871 ==
LOC: HO.ED 16:47 → HO.EDOVER 19:38 → HO.S3 19:59
PROVIDERS: Admitting Provider Student in an Organized Health Care Education/Training Program; Emergency Provider Emergency Medicine; PCP Physician Assistant; Visit Provider Student in an Organized Health Care Education/Training Program
DX: A41.9 Sepsis, unspecified organism (principal); G92.8 Other toxic encephalopathy; S42.231A 3-part fracture of surgical neck of right humerus, initial encounter for closed fracture; N39.0 Urinary tract infection, site not specified; B96.20 Unspecified Escherichia coli [E. coli] as the cause of diseases classified elsewhere; E87.6 Hypokalemia; T79.6XXA Traumatic ischemia of muscle, initial encounter; W19.XXXA Unspecified fall, initial encounter; Z91.040 Latex allergy status; F17.210 Nicotine dependence, cigarettes, uncomplicated; Z71.6 Tobacco abuse counseling
CPT/HCPCS: 36415; 70450; 71045; 72125; 73060; 73502; 76705; 80048; 80076; 81001; 82550; 83605; 83690; 83880; 84484; 85025; 85027; 87040; 87086; 87088; 87186; 93005; 97162; 99285; J0696; J1650; J2270

== ENCOUNTER → 2022-12-27 19:23 | Outpatient (BNV) | payer MEDICARE, SELFPAY | PROVIDERS: Admitting Provider Student in an Organized Health Care Education/Training Program; Emergency Provider Emergency Medicine; Visit Provider Student in an Organized Health Care Education/Training Program | DX: A41.9 Sepsis, unspecified organism (principal); S42.301A Unspecified fracture of shaft of humerus, right arm, initial encounter for closed fracture; M62.82 Rhabdomyolysis; N39.0 Urinary tract infection, site not specified; W19.XXXA Unspecified fall, initial encounter | CPT/HCPCS: 99223; 99232; 99233; 99239 ==

== ENCOUNTER → 2022-12-27 19:23 | Outpatient (BNV) | payer MEDICARE, SELFPAY | PROVIDERS: Admitting Provider Student in an Organized Health Care Education/Training Program; Emergency Provider Emergency Medicine; Visit Provider Orthopaedic Surgery | DX: S42.301A Unspecified fracture of shaft of humerus, right arm, initial encounter for closed fracture (principal) | CPT/HCPCS: 99222 ==

== ENCOUNTER 2023-01-24 06:11 | Outpatient (REF) | payer MEDICARE, SELFPAY ==
--- NOTE | ~2023-01-24 | XR_ITS ---
EXAMINATION: XR SHOULDER, RIGHT CLINICAL INFORMATION: Pain in the right shoulder. COMPARISON: X-ray the right humerus December 2022 TECHNIQUE: Two views of the right shoulder. FINDINGS: Comminuted mildly displaced fracture of the proximal humerus redemonstrated. Alignment unchanged. There is new callus/heterotopic ossification along the lateral aspect of the humerus at the level of the surgical neck. The fracture extends into the greater tuberosity and possibly the apex of humeral head. Surrounding bone and joints and soft tissues unremarkable. XR/XR shoulder RT min 2V IMPRESSION: Healing fracture of the proximal right humerus unchanged in alignment compared with the prior x-ray.
== END 2023-01-24 06:12 | disposition home or self-care (01) ==
LOC: HO.HOSX 06:11
PROVIDERS: Visit Provider Physician Assistant
DX: S42.301A Unspecified fracture of shaft of humerus, right arm, initial encounter for closed fracture (principal); W19.XXXA Unspecified fall, initial encounter; Y93.9 Activity, unspecified; Y92.9 Unspecified place or not applicable; Y99.9 Unspecified external cause status
CPT/HCPCS: 73030; 99202

== ENCOUNTER 2023-01-24 14:36 | Outpatient (AMB) | payer MEDICARE, SELFPAY ==
--- NOTE | 2023-01-24 14:49 | A.OFFVIS_ITS ---
Intake Intake Visit Reasons: ov- Right Humerus Fx F/U Intake Note: Wendi an 82 year old right hand dominant female presents today for an ER follow up of right humerus fx s/p fall. Patient reports that she presented to [facility] ED on 12/27/22 where xrays were taken and placed in a sling. Currently pain comes with movement of her arm, states at rest no pain. Allergies azithromycin Allergy (Unknown, Verified 01/24/23 14:58) Unknown codeine Allergy (Unknown, Verified 01/24/23 14:58) Unknown docusate [From Colace] Allergy (Unknown, Verified 01/24/23 14:58) red rash, hand swelling latex [LATEX] Allergy (Unknown, Verified 01/24/23 14:58) ITCHY levofloxacin [Levaquin] Allergy (Unknown, Verified 01/24/23 14:58) Unknown oxybutynin Allergy (Unknown, Verified 01/24/23 14:58) red rash,hand swelling Sulfa (Sulfonamide Antibiotics) [SULFA (SULFONAMIDE ANTIBIOTICS)] Allergy (Unknown, Verified 01/24/23 14:58) RASH, Hives, hives HPI ov- Right Humerus Fx F/U HPI Details 82-year-old right hand dominant female corinne jackson presents to the office today for an ER follow-up of right humerus injury s/p fall in December. She was seen at ED on 12/27/22 where x-rays were performed and she was placed in a sling. She currently states she has pain in her arm with movement. She finds relief with resting her arm. PFSH Medical History HLD (hyperlipidemia) TRAMAINE (generalized anxiety disorder) Hypothyroid Surgical History History of cystoscopy History of tonsillectomy History of cataract surgery History of section Family History Father Lung cancer Mother Hypertension MRSA infection Family history of thyroid problem Social History Household Members: None Housing: House Do you presently have visiting nurse or other home services: No Alcohol intake: never Patient Tobacco Use Status: Current everyday Tobacco user Tobacco use type: Cigarette Cigarettes Per Day: 5 Second Hand Smoke Exposure: No service: No Review of Systems Const All systems reviewed & are unremarkable except as noted in HPI and below Physical Exam Const General: cooperative and no acute distress Orientation/consciousness: patient oriented x3 Resp Effort & Inspection: normal respiratory effort and able to speak in complete sentences Cardio Peripheral pulses: Peripheral pulses 2+ throughout Neuro General: patient oriented x3 Extrem Other: Right shoulder: Normal to inspection. No swelling. Mild tenderness over the proximal humerus which extends down the arm. Anterior deltoid sensation intact. Elbow and wrist ROM intact. NVI. Office Procedures Fracture Care Fracture Billing Code: Fracture Billing Code Results Reviewed Results Reviewed: Xrays were obtained in the office today and personally reviewed by me of the right shoulder show healing. stable proximal humerus fx Assessment & Plan Assessment & Plan (1) Closed right humeral fracture: Code(s): S42.301A - Unspecified fracture of shaft of humerus, right arm, initial encounter for closed fracture Qualifiers: Encounter type: initial encounter Humerus Location: proximal Fracture alignment: nondisplaced Plan She will discontinue the use of sling and begin working on therapy exercises for gentle ROM, pendulum and periscapular stabilization. She will avoid any type of RTC strengthening testing and she will not weight bearing on the RUE. She will see me back in 6 weeks with x-rays, sooner if needed. Orders: Orders XR shoulder RT min 2V 01/24/23 M25.511 - Pain in right shoulder Patient Instructions: Scribed for Pradeep Belcher PA-C, by Tk Perry medical insurance claims specialist, on 01/24/2023 at 2:45 PM EST. I, Pradeep Belcher PA-C, have personally reviewed and agree with the information entered by the scribe. Coding Level of Care Code New Pt Level 3 (98292) Diagnoses Closed right humeral fracture S42.301A Encounter type: initial encounter Humerus Location: proximal Fracture alignment: nondisplaced CPT Codes Fracture Care - Fracture Billing Code: Fracture Billing Code ([id number])
== END 2023-01-24 15:25 | disposition home or self-care (01) ==
PROVIDERS: PCP Physician Assistant; Visit Provider Physician Assistant
DX: S42.301A Unspecified fracture of shaft of humerus, right arm, initial encounter for closed fracture (principal); W19.XXXA Unspecified fall, initial encounter
CPT/HCPCS: 99203

== ENCOUNTER 2023-01-31 16:51 | Outpatient (REF) | payer OTHER, MEDICARE, SELFPAY ==
[2023-01-31 17:58] LABS: Appearance Urine Cloudy; Color Urine Yellow; Glucose Urine UA Negative (Negative); Leukocyte Esterase Urine Moderate (2+) (Negative); Nitrite Urine Positive (Negative); PH 5.5 (5.0-9.0); UMIC TRIGGER UACC YES; Urine Blood Small (1+) (Negative); Urine Ketones Negative (Negative); Urine Protein Trace mg/dL (Neg-Trace)
[2023-01-31 18:13] LABS: Bacteria Urine 4+ (None Seen); RBC Urine 0-2 /HPF (0-2); Squamous Epithelial Cell Urine 0-2 /HPF (0-2); UACC Culture Trigger YES; WBC Urine >50 /HPF (0-5)
== END 2023-01-31 16:52 | disposition home or self-care (01) ==
LOC: HO.LNP 16:51
PROVIDERS: Visit Provider Physician Assistant
DX: R39.9 Unspecified symptoms and signs involving the genitourinary system (principal)
CPT/HCPCS: 81001; 81003; 87086; 87088; 87186

== ENCOUNTER 2023-02-08 09:44 | Outpatient (AMB) | payer MEDICARE, SELFPAY ==
--- NOTE | 2023-02-08 09:53 | A.OFFPC_ITS ---
Vital Signs 02/08/23 09:54 Height 5 ft 2 in Weight 116 lb BMI 21.2 BP 124/70 Blood Pressure Location Lt brachial Position Sitting Pulse 82 Pulse Source Pulse Oximeter Pulse Oximetry (%) 98 Oxygen Delivery Method Room Air Intake Visit Reasons: Fracture Shoulder D/S 01/30 Steam Blocker Required: No Aircraft Engine Mechanic: Not Required per policy Accompanied by: Self / Same As Patient Allergies azithromycin Allergy (Unknown, Verified 02/08/23 10:18) Unknown codeine Allergy (Unknown, Verified 02/08/23 10:18) Unknown docusate [From Colace] Allergy (Unknown, Verified 02/08/23 10:18) red rash, hand swelling latex [LATEX] Allergy (Unknown, Verified 02/08/23 10:18) ITCHY levofloxacin [Levaquin] Allergy (Unknown, Verified 02/08/23 10:18) Unknown oxybutynin Allergy (Unknown, Verified 02/08/23 10:18) red rash,hand swelling Sulfa (Sulfonamide Antibiotics) [SULFA (SULFONAMIDE ANTIBIOTICS)] Allergy (Unknown, Verified 02/08/23 10:18) RASH, Hives, hives Medication List - Last Reconciled 02/08/23 by Niall Cain PA-C cefuroxime axetil 500 mg PO BID donepezil 5 mg PO DAILY nitrofurantoin monohyd/m-cryst 100 mg (Macrobid) 100 mg PO Q12H 5 days trazodone 50 mg PO DAILY Fall risk assessment: 1 Fall in past year Last assessed Fall Risk: 02/08/23 Dental Screening Dental Screen Date: 02/08/23 Did you have a dental visit in the last 12 months?: Yes Did you have a dental problem in the last 6 months where you did not have access to dental care?: No Was dental information given to patient?: Patient has dentist HPI Fracture Shoulder D/S 01/30 HPI Details Patient is a 82-year-old female here today for follow-up visit. Patient has a past medical history significant for hypothyroidism, moderate to severe dementia, smoker, anxiety, depression. Today presents with a family friend whom gives most of the history Recently suffered a fall and December of 2022 resulting in a right humeral fracture. She needed short-term care home facility for rehab. Has been following with orthopedics .. Anxiety: Patient reports her anxiety has been up and down she does report taking care of her whom has multiple medical problems. She reports that cigarettes help her stress. .. Dementia: Patient is . Does have family in a involved in her care, they rotate caring for Wendi. .. SMoker: Has been smoking now for 20 years, 5 -10 cig per day. Has tried many times to quit without much success. Not interested in quitting smoking at this time. .. Hypothythyroid: Unclear if using levothyroxine at this time. Will recheck TSH to evaluate the need for thyroid medication. [facility] Medical History HLD (hyperlipidemia) TRAMAINE (generalized anxiety disorder) Hypothyroid Surgical History History of cystoscopy History of tonsillectomy History of cataract surgery History of section Family History Father Lung cancer Mother Hypertension MRSA infection Family history of thyroid problem Social History Household Members: None Housing: House Do you presently have visiting nurse or other home services: No Alcohol intake: never Patient Tobacco Use Status: Current everyday Tobacco user Tobacco use type: Cigarette Cigarettes Per Day: 5 Second Hand Smoke Exposure: No service: No Cognitive needs: No Hearing needs: No Vision needs: No Questionnaire PHQ-9 Over the last 2 weeks, how often have you been bothered by any of the following problems? 1. Little interest or pleasure in doing things: not at all 2. Feeling down, depressed, or hopeless: not at all 3. Trouble falling or staying asleep, or sleeping too much: not at all 4. Feeling tired or having little energy: not at all 5. Poor appetite or overeating: not at all 6. Feeling bad about yourself - or that you are a failure or have let yourself or your family down: not at all 7. Trouble concentrating on things, such as reading the newspaper or watching television: not at all 8. Moving or speaking so slowly that other people could have noticed. Or the opposite - being so fidgety or restless that you have been moving around a lot more than usual: not at all 9. Thoughts that you would be better off or of hurting yourself in some way: not at all Total score: 0 Source: Developed by Drs. Chava Rosenthal, Elisha Gallego, Tristan Lozano and colleagues, with an educational alsyia from [employer]. Thrive Questionnaire Date Thrive assessed: 12/28/22 AUDIT C Alcohol Use Questionnaire (AUDIT-C) 1. How often do you have a drink containing alcohol?: Never Total Score: 0 TRAMAINE-7 AMB Questionnaire TRAMAINE-7 Date TRAMAINE - 7 assessed: 02/08/23 Feeling nervous, anxious, or on edge: 0 = Not at all Not being able to stop or control worryin = Not at all Worrying too much about different things: 0 = Not at all Trouble relaxin = Not at all Being so restless that it is hard to sit still: 0 = Not at all Becoming easily annoyed or irritable: 0 = Not at all Feeling afraid as if something awful might happen: 0 = Not at all Total TRAMAINE-7 score (0-4 normal; 5-9 mild; 10-14 moderate; 15-21 severe): 0 Source: Developed by Drs. Chava Rosenthal, Elisha Gallego, Tristan Lozano and colleagues, with an educational alysia from [employer]. Review of Systems Const Denies headache(s) Eyes Denies loss of vision ENT Denies vertigo, Denies dizziness, Denies headache(s) and Denies sore throat Card Denies chest pain, Denies leg edema and Denies lightheadedness Resp Denies cough, Denies hemoptysis and Denies wheezing GI Denies abdominal pain, Denies melena, Denies constipation, Denies diarrhea and Denies vomiting Denies urinary frequency, Denies dysuria and Denies urinary urgency Musc Denies arthralgias, Denies joint swelling, Denies numbness and Denies tingling Neuro Denies Abnormal speech present, Denies behavioral changes, Denies vertigo, Denies dizziness, Denies headache(s), Denies loss of vision, Denies memory loss, Denies numbness and Denies tingling Psych Denies anxiety, Denies behavioral changes, Denies depression, Denies memory loss and Denies panic attacks Mehul/Lymph Denies easy bleeding and Denies easy bruising Aller/Immun Denies wheezing Physical exam (Primary Care) Vital Signs: Last Vital Signs Pulse 82 02/08/23 09:54 BP 124/70 02/08/23 09:54 Pulse Ox 98 02/08/23 09:54 Oxygen Delivery Method Room Air 02/08/23 09:54 BMI result Body Mass Index 21.2 Tobacco/Smoking Status: Tobacco use Status Patient Tobacco Use Status Current everyday Tobacco 02/08/23 09:55 Tobacco use type Cigarette 02/08/23 09:55 PHQ-9: PHQ-9 Score PHQ-9: Total score 0 02/08/23 10:18 Thrive Assessment: Date of Thrive Assessment Date Thrive assessed 12/28/22 02/08/23 09:55 Const General: healthy appearing, no acute distress, alert and awake Nutritional Appearance: well nourished Orientation/consciousness: oriented to person, oriented to place and oriented to time HENMT Ears: TM's normal bilaterally General nose exam: Normal nasal mucous membranes and turbinates present Eyes Conjunctivae: conjunctivae normal Sclerae: sclerae normal Pupils: Equal, round and reactive pupils present Neck Neck: Yes no lymphadenopathy and Yes no JVD Thyroid: Thyroid normal Carotids: no bruits Resp Effort & Inspection: normal respiratory effort and not tachypneic Auscultation: no crackles, no rales, no rhonchi and no wheezes Cardio Rate: regular rate Rhythm: regular rhythm Heart sounds: no murmurs and normal S1 and S2 GI Palpation (GI): Soft to palpation, nontender, no hepatomegaly and no splenomegaly Auscultation: normal bowel sounds Skin General skin exam: no rashes or lesions noted and dry skin Neuro General: oriented to person, oriented to place and oriented to time Cranial nerves: Yes Equal, round and reactive pupils present Speech: No Abnormal speech present Gait exam (Neuro): Normal gait present Motor exam (neuro): no tremor noted Extrem Right upper extremity: full ROM Left upper extremity: full ROM Right lower extremity: full ROM; no edema Left lower extremity: full ROM; no edema Psych Mental Status: mental status grossly normal Speech and movement: Normal speech and movement present Affect: normal affect Attitude: cooperative Thought process: Normal thought process present Assessment and Plan Assessment & Plan (1) HLD (hyperlipidemia): Code(s): E78.5 - Hyperlipidemia, unspecified Qualifiers: Hyperlipidemia type: mixed hyperlipidemia Qualified Code(s): E78.2 - Mixed hyperlipidemia Plan: Continue to follow fasting lipid panel. Not on statin therapy at this time. Goal LDL is to be below 130. (2) Dementia: Code(s): F03.90 - Unspecified dementia, unspecified severity, without behavioral disturbance, psychotic disturbance, mood disturbance, and anxiety Qualifiers: Dementia type: unspecified type Dementia severity: moderate Dementia behavioral or psychological symptom: with anxiety Qualified Code(s): F03.B4 - Unspecified dementia, moderate, with anxiety Plan: As above patient receiving a lot of help from family and friends. Also does have care tenders coming to the to do assessments and vitals. (3) Hypothyroid: Code(s): E03.9 - Hypothyroidism, unspecified Qualifiers: Hypothyroidism type: unspecified Qualified Code(s): E03.9 - Hypothyroidism, unspecified Plan: Was previously on thyroid medication though unclear as to why this was stopped. Will recheck TSH to assure the need for thyroid medication. (4) Closed right humeral fracture: Code(s): S42.301A - Unspecified fracture of shaft of humerus, right arm, initial encounter for closed fracture Qualifiers: Encounter type: initial encounter Fracture alignment: nondisplaced Fracture morphology: other fracture Humerus Location: proximal Qualified Code(s): S42.294A - Other nondisplaced fracture of upper end of right humerus, initial encounter for closed fracture Plan: As per HPI patient suffered a closed right humeral fracture due to a fall. Had a small stay at care home facility for rehab. Not doing much better range of motion improved. Not using sling at this time. (5) TRAMAINE (generalized anxiety disorder): Code(s): F41.1 - Generalized anxiety disorder Plan: Patient's anxiety fairly stable. Does have a lot of help from family and friends. Has been started on trazodone 25 mg at night which has been effective for her. Orders: Orders TSH reflex Free T4 Today E03.9 - Hypothyroidism, unspecified Basic Metabolic Panel Today E78.2 - Mixed hyperlipidemia Complete Blood Count no Diff Today E78.2 - Mixed hyperlipidemia Medications: New trazodone 25 mg (1/2 x 50 mg) PO DAILY 90 days 45 tabs 1RF F41.1 - Generalized anxiety disorder donepezil 5 mg PO DAILY 90 days 90 tabs 1RF F03.90 - Unspecified dementia, unspecified severity, without behavioral disturbance, psychotic disturbance, mood disturbance, and anxiety Coding Level of Care Code Est Pt Level 4 (66009) Diagnoses Mixed hyperlipidemia E78.2 Hyperlipidemia type: mixed hyperlipidemia Moderate dementia with anxiety, unspecified dementia type F03.B4 Dementia type: unspecified type Dementia severity: moderate Dementia behavioral or psychological symptom: with anxiety Hypothyroidism, unspecified type E03.9 Hypothyroidism type: unspecified Other closed nondisplaced fracture of proximal end of right humerus, initial encounter S42.294A Encounter type: initial encounter Fracture alignment: nondisplaced Fracture morphology: other fracture Humerus Location: proximal TRAMAINE (generalized anxiety disorder) F41.1
[2023-02-08 09:54] VITALS: BP 124/70; PULSE 82; O2SAT 98; BMI 21.2
== END 2023-02-08 10:54 | disposition home or self-care (01) ==
PROVIDERS: PCP Physician Assistant; Visit Provider Physician Assistant
DX: E78.2 Mixed hyperlipidemia (principal); F03.B4 Unspecified dementia, moderate, with anxiety; E03.9 Hypothyroidism, unspecified; S42.294A Other nondisplaced fracture of upper end of right humerus, initial encounter for closed fracture; F41.1 Generalized anxiety disorder
CPT/HCPCS: 99214

== ENCOUNTER 2023-02-15 16:21 | Outpatient (REF) | payer MEDICARE, SELFPAY | END 2023-02-15 16:22 | disposition home or self-care (01) | LOC: HO.LNP 16:21 | PROVIDERS: Visit Provider Physician Assistant | DX: R39.9 Unspecified symptoms and signs involving the genitourinary system (principal) | CPT/HCPCS: 81001; 81003; 87086 ==

== ENCOUNTER 2023-03-07 13:50 | Outpatient (REF) | payer MEDICARE, SELFPAY | END 2023-03-07 13:51 | disposition home or self-care (01) | LOC: HO.HOSX 13:50 | PROVIDERS: Visit Provider Physician Assistant | DX: Z13.89 Encounter for screening for other disorder (principal) ==

== ENCOUNTER 2023-03-16 09:14 | Outpatient (REF) | payer MEDICARE, SELFPAY ==
--- NOTE | ~2023-03-16 | XR_ITS ---
EXAMINATION: XR SHOULDER, RIGHT CLINICAL INFORMATION: Pain in the right shoulder. COMPARISON: Radiograph right shoulder 01/24/2023. TECHNIQUE: Two views of the right shoulder. FINDINGS: Comminuted mildly displaced fracture of the proximal humerus redemonstrated. Alignment is unchanged. Similar degree of callus formation. The fracture extends to the greater tuberosity and possibly apex of the humeral head, similar to prior. No interval injuries. Surrounding soft tissues are unremarkable. Included portions of the lungs are clear. XR/XR shoulder RT min 2V IMPRESSION: No significant change compared to 01/24/2023.
== END 2023-03-16 09:15 | disposition home or self-care (01) ==
LOC: HO.HOSX 09:14
PROVIDERS: Visit Provider Physician Assistant
DX: S42.294D Other nondisplaced fracture of upper end of right humerus, subsequent encounter for fracture with routine healing (principal); M25.511 Pain in right shoulder; X58.XXXD Exposure to other specified factors, subsequent encounter
CPT/HCPCS: 73030; 99212

== ENCOUNTER 2023-03-16 14:25 | Outpatient (AMB) | payer MEDICARE, SELFPAY ==
[2023-03-16 14:35] VITALS: BMI 21.2
--- NOTE | 2023-03-16 14:35 | A.OFFVIS_ITS ---
Intake Vital Signs 03/16/23 14:35 Height 5 ft 2 in Weight 116 lb BMI 21.2 Intake Visit Reasons: ov- Right Humerus Fx F/U Intake Note: Wendi 82 yr old female presents today for her follow-up of right humerus injury s/p fall in December. Xrays updated in office. States she is doing well and has been non weight bearing. Denies numbness or tingling. Allergies azithromycin Allergy (Unknown, Verified 03/16/23 14:43) Unknown codeine Allergy (Unknown, Verified 03/16/23 14:43) Unknown docusate [From Colace] Allergy (Unknown, Verified 03/16/23 14:43) red rash, hand swelling latex [LATEX] Allergy (Unknown, Verified 03/16/23 14:43) ITCHY levofloxacin [Levaquin] Allergy (Unknown, Verified 03/16/23 14:43) Unknown oxybutynin Allergy (Unknown, Verified 03/16/23 14:43) red rash,hand swelling Sulfa (Sulfonamide Antibiotics) [SULFA (SULFONAMIDE ANTIBIOTICS)] Allergy (Unknown, Verified 03/16/23 14:43) RASH, Hives, hives HPI ov- Right Humerus Fx F/U HPI Details 82-year-old female who returns to the [facility] today for a follow-up of right humerus fracture s/p fall in December. She states she is non weight bearing and is doing well overall. She denies any numbness or tingling. She is working on physical therapy as instructed. She has no other concerns today. [facility] Medical History HLD (hyperlipidemia) TRAMAINE (generalized anxiety disorder) Hypothyroid Surgical History History of cystoscopy History of tonsillectomy History of cataract surgery History of section Family History Father Lung cancer Mother Hypertension MRSA infection Family history of thyroid problem Social History Household Members: None Housing: House Do you presently have visiting nurse or other home services: No Alcohol intake: never Patient Tobacco Use Status: Current everyday Tobacco user Tobacco use type: Cigarette Cigarettes Per Day: 5 Second Hand Smoke Exposure: No service: No Cognitive needs: No Hearing needs: No Vision needs: No Review of Systems Const All systems reviewed & are unremarkable except as noted in HPI and below Physical Exam Vital Signs: BMI result Body Mass Index 21.2 Const General: cooperative and no acute distress Orientation/consciousness: patient oriented x3 Resp Effort & Inspection: normal respiratory effort and able to speak in complete sentences Cardio Peripheral pulses: Peripheral pulses 2+ throughout Neuro General: patient oriented x3 Extrem Other: Right shoulder: Normal to inspection. No swelling. Mild tenderness over the proximal humerus which extends down the arm. Anterior deltoid sensation intact. FF to 90, she can bring her hand to the top of her head and IR to back pocket. Elbow and wrist ROM intact. NVI. Results Reviewed Results Reviewed: Xrays were obtained in the office today and personally reviewed by me of the right shoulder show healing , stable proximal humerus fx Assessment & Plan Assessment & Plan (1) Closed right humeral fracture: Code(s): S42.301A - Unspecified fracture of shaft of humerus, right arm, initial encounter for closed fracture Qualifiers: Encounter type: subsequent encounter Fracture alignment: nondisplaced Fracture morphology: other fracture Humerus Location: proximal Fracture healing: with routine healing Qualified Code(s): S42.294D - Other nondisplaced fracture of upper end of right humerus, subsequent encounter for fracture with routine healing Plan She will increase activity as tolerated. She will continue with physical therapy to regain her strength. If symptoms persist or worsens, patient will contact the office, otherwise follow-up as needed. Orders: Orders XR shoulder RT min 2V 03/16/23 M25.511 - Pain in right shoulder Patient Instructions: Scribed for Pradeep Belcher PA-C, by Tk Perry medical scientific officer, on 03/16/2023 at 2:30 PM EST. I, Pradeep Belcher PA-C, have personally reviewed and agree with the information entered by the scribe. Coding Level of Care Code Global (20054) Diagnoses Other closed nondisplaced fracture of proximal end of right humerus with routine healing, subsequent encounter S42.294D Encounter type: subsequent encounter Fracture alignment: nondisplaced Fracture morphology: other fracture Humerus Location: proximal Fracture healing: with routine healing
== END 2023-03-16 14:56 | disposition home or self-care (01) ==
PROVIDERS: PCP Physician Assistant; Visit Provider Physician Assistant
DX: S42.294D Other nondisplaced fracture of upper end of right humerus, subsequent encounter for fracture with routine healing (principal)
CPT/HCPCS: 99213

== ENCOUNTER 2023-04-24 17:36 | Outpatient (REF) | payer MEDICARE, SELFPAY ==
[2023-04-24 18:38] LABS: Appearance Urine Cloudy; Color Urine Yellow; Glucose Urine UA Negative (Negative); Leukocyte Esterase Urine Moderate (2+) (Negative); Nitrite Urine Positive (Negative); Specific Gravity - Urine 1.015 (1.005-1.025); UMIC TRIGGER UACC YES; Urine Blood Small (1+) (Negative); Urine Ketones Negative (Negative); Urine Protein Negative (Neg-Trace)
[2023-04-24 18:55] LABS: Bacteria Urine 4+ (None Seen); Hyaline Casts Urine 0-2 /LPF (0-2); RBC Urine 0-2 /HPF (0-2); Squamous Epithelial Cell Urine 0-2 /HPF (0-2); UACC Culture Trigger YES; WBC Urine >50 /HPF (0-5)
== END 2023-04-24 17:37 | disposition home or self-care (01) ==
LOC: HO.LNP 17:36
PROVIDERS: Visit Provider Physician Assistant
DX: R30.0 Dysuria (principal)
CPT/HCPCS: 81001; 87086; 87088; 87186

== ENCOUNTER 2023-05-28 15:22 | Outpatient (REF) | payer MEDICARE, SELFPAY ==
[2023-05-28 15:27] LABS: Appearance Urine Cloudy; Color Urine Yellow; Glucose Urine UA Negative (Negative); Leukocyte Esterase Urine Small (1+) (Negative); Nitrite Urine Negative (Negative); Specific Gravity - Urine 1.025 (1.005-1.025); UMIC TRIGGER UACC YES; Urine Blood Negative (Negative); Urine Ketones Negative (Negative); Urine Protein Negative (Neg-Trace)
[2023-05-28 15:55] LABS: Bacteria Urine Trace (None Seen); Hyaline Casts Urine 0-2 /LPF (0-2); RBC Urine 0-2 /HPF (0-2); Squamous Epithelial Cell Urine >20 /HPF (0-2); UACC Culture Trigger YES
== END 2023-05-28 15:23 | disposition home or self-care (01) ==
LOC: HO.LNP 15:22
PROVIDERS: Visit Provider Physician Assistant
DX: R30.0 Dysuria (principal)
CPT/HCPCS: 81001; 87086

== ENCOUNTER 2023-07-11 10:54 | Outpatient (AMB) | payer MEDICARE, SELFPAY ==
--- NOTE | 2023-07-11 10:48 | A.OFFPC_ITS ---
Intake Visit Reasons: f/u labs ( Factor 14) [phone] Par[employer] Post Carrier Required: No Accompanied by: Rebecca-Caregiver Allergies azithromycin Allergy (Unknown, Verified 07/11/23 11:14) Unknown codeine Allergy (Unknown, Verified 07/11/23 11:14) Unknown docusate [From Colace] Allergy (Unknown, Verified 07/11/23 11:14) red rash, hand swelling latex [LATEX] Allergy (Unknown, Verified 07/11/23 11:14) ITCHY levofloxacin [Levaquin] Allergy (Unknown, Verified 07/11/23 11:14) Unknown oxybutynin Allergy (Unknown, Verified 07/11/23 11:14) red rash,hand swelling Sulfa (Sulfonamide Antibiotics) [SULFA (SULFONAMIDE ANTIBIOTICS)] Allergy (Unknown, Verified 07/11/23 11:14) RASH, Hives, hives Medication List - Last Reconciled 07/11/23 by Niall Cain PA-C donepezil 5 mg PO DAILY 90 days donepezil 5 mg PO DAILY 90 days mirtazapine 7.5 mg PO BEDTIME 30 days Tobacco use date assessed: 07/11/23 Fall risk assessment: No Falls in past year Last assessed Fall Risk: 07/11/23 Dental Screening Dental Screen Date: 07/11/23 Did you have a dental visit in the last 12 months?: No Did you have a dental problem in the last 6 months where you did not have access to dental care?: No Was dental information given to patient?: Patient has dentist HPI f/u labs ( Factor 14) [phone] HPI Details Patient is a 83-year-old female being evaluated today via telephone only.. Patient has a past medical history significant for hypothyroidism, m oderate to severe dementia, smoker, anxiety, depression. Today spoke with her caregiver on the phone while patient was on speaker. .. Anxiety: Patient reports her anxiety has been up and down she does report taking care of her whom has multiple medical problems. She reports that cigarettes help her stress. .. Dementia: Patient is . Does have family in a involved in her care, they rotate caring for Wendi. .. SMoker: Has been smoking now for 20 years, 5 -10 cig per day. Has tried many times to quit without much success. Not interested in quitting smoking at this time. .. Hypothythyroid: Unclear if using levothyroxine at this time. Will recheck TSH to evaluate the need for thyroid medication. [facility] Medical History HLD (hyperlipidemia) TRAMAINE (generalized anxiety disorder) Hypothyroid Surgical History History of cystoscopy History of tonsillectomy History of cataract surgery History of section Family History Father Lung cancer Mother Hypertension MRSA infection Family history of thyroid problem Social History Household Members: None Housing: House Do you presently have visiting nurse or other home services: No Alcohol intake: never Patient Tobacco Use Status: Current everyday Tobacco user Tobacco use type: Cigarette Cigarettes Per Day: 10 Second Hand Smoke Exposure: No service: No Cognitive needs: No Hearing needs: No Vision needs: No Questionnaire PHQ-9 Over the last 2 weeks, how often have you been bothered by any of the following problems? 1. Little interest or pleasure in doing things: not at all 2. Feeling down, depressed, or hopeless: not at all 3. Trouble falling or staying asleep, or sleeping too much: not at all 4. Feeling tired or having little energy: not at all 5. Poor appetite or overeating: not at all 6. Feeling bad about yourself - or that you are a failure or have let yourself or your family down: not at all 7. Trouble concentrating on things, such as reading the newspaper or watching television: not at all 8. Moving or speaking so slowly that other people could have noticed. Or the opposite - being so fidgety or restless that you have been moving around a lot more than usual: not at all 9. Thoughts that you would be better off or of hurting yourself in some way: not at all Total score: 0 Depression Screening Interpretation: Negative Depression Screening Done: Yes 23249 - PHQ-9 Billing: Yes Source: Developed by Drs. Chava Rosenthal, Elisha BTristan Valiente and colleagues, with an educational alysia from [employer]. Thrive Questionnaire Date Thrive assessed: 07/11/23 I am a: Patient What is your living situation today?: I have a steady place to live Within the past 12 months, did the food you bought not last and you didn't have the money to get more?: Never true Within the past 12 months, did you worry whether your food would run out before you got money to buy more?: Never true Do you have trouble paying for medicines?: No Do you have trouble getting transportation to medical appointments?: No Do you have trouble paying your heating and electricity bill?: No Do you have trouble taking care of your child, family member or friend?: No Do you have trouble with day-to-day activities such as bathing, preparing meals, shopping, managing finances, etc.?: No Are you currently unemployed and looking for a job?: No Are you interested in more education?: No Please select the resources that you would like help with: None Currently or been in a relationship where the following occur: no concerns reported THRIVE Score: 0 AUDIT C Alcohol Use Questionnaire (AUDIT-C) 1. How often do you have a drink containing alcohol?: Never 3. How often do you have six or more drinks on one occasion?: Never Total Score: 0 TRAMAINE-7 AMB Questionnaire TRAMAINE-7 Date TRAMAINE - 7 assessed: 07/11/23 Feeling nervous, anxious, or on edge: 0 = Not at all Not being able to stop or control worryin = Not at all Worrying too much about different things: 0 = Not at all Trouble relaxin = Not at all Being so restless that it is hard to sit still: 0 = Not at all Becoming easily annoyed or irritable: 0 = Not at all Feeling afraid as if something awful might happen: 0 = Not at all Total TRAMAINE-7 score (0-4 normal; 5-9 mild; 10-14 moderate; 15-21 severe): 0 Source: Developed by Drs. Chava Rosenthal, Tristan Morrell and colleagues, with an educational alysia from [employer]. TRAMAINE-7 Assessment Billing TRAMAINE-7 Assessment Tool: TRAMAINE-7 Assessment 53377 Review of Systems Const Denies headache(s) Eyes Denies loss of vision ENT Denies vertigo, Denies dizziness, Denies headache(s) and Denies sore throat Card Denies chest pain, Denies leg edema and Denies lightheadedness Resp Denies cough, Denies hemoptysis and Denies wheezing GI Denies abdominal pain, Denies melena, Denies constipation, Denies diarrhea and Denies vomiting Denies urinary frequency, Denies dysuria and Denies urinary urgency Musc Denies arthralgias, Denies joint swelling, Denies numbness and Denies tingling Neuro Denies behavioral changes, Denies vertigo, Denies dizziness, Denies headache(s), Denies loss of vision, Denies memory loss, Denies numbness and Denies tingling Psych Denies anxiety, Denies behavioral changes, Denies depression, Denies memory loss and Denies panic attacks Mehul/Lymph Denies easy bleeding and Denies easy bruising Aller/Immun Denies wheezing Physical exam (Primary Care) Tobacco/Smoking Status: Tobacco use Status Tobacco use date assessed 07/11/23 07/11/23 10:53 Patient Tobacco Use Status Current everyday Tobacco 07/11/23 10:49 Tobacco use type Cigarette 07/11/23 10:49 Are you ready to quit: No Tobacco cessation counseling provided: Yes Items discussed: Nicotine replacement Relapse Prevention: discussed the importance of a supportive environment, discussed negative mood or depression after quitting, weight gain after smoking is common and discussed dietary, exercise and/or lifestyle changes Number of minutes spent counselin CPT code: 28864 - 4-10 Minutes PHQ-9: PHQ-9 Score PHQ-9: Total score 0 07/11/23 10:53 Depression Screening Interpretation: Negative Thrive Assessment: Date of Thrive Assessment Date Thrive assessed 07/11/23 07/11/23 10:53 Currently or been in a relationship where the following occur: no concerns reported Telehealth Telehealth Telehealth Platform: Telephone Location of provider rendering services: practice address Location of patient: address on file Patient Identification confirmed using: Name, : Yes Telehealth method: voice only Patient verbally consented to treatment: Yes Patient verbally consented to billing insurance company: Yes Patient informed of any privacy concerns related to visit: Yes Minutes spent on Phone/Video with Pt.: 11 Assessment and Plan Assessment & Plan (1) HLD (hyperlipidemia): Code(s): E78.5 - Hyperlipidemia, unspecified Qualifiers: Hyperlipidemia type: mixed hyperlipidemia Qualified Code(s): E78.2 - Mixed hyperlipidemia Plan: Continue to follow fasting lipid panel. Not on statin therapy at this time. Goal LDL is to be below 130. (2) Dementia: Code(s): F03.90 - Unspecified dementia, unspecified severity, without behavioral disturbance, psychotic disturbance, mood disturbance, and anxiety Qualifiers: Dementia type: unspecified type Dementia severity: moderate Dementia behavioral or psychological symptom: with anxiety Qualified Code(s): F03.B4 - Unspecified dementia, moderate, with anxiety Plan: As above patient receiving a lot of help from family and friends. Also does have care tenders coming to the to do assessments and vitals. (3) Hypothyroid: Code(s): E03.9 - Hypothyroidism, unspecified Qualifiers: Hypothyroidism type: unspecified Qualified Code(s): E03.9 - Hypothyroidism, unspecified Plan: Was previously on thyroid medication though unclear as to why this was stopped. Will recheck TSH to assure the need for thyroid medication. (4) TRAMAINE (generalized anxiety disorder): Code(s): F41.1 - Generalized anxiety disorder Plan: Patient's anxiety has been fairly well controlled per patient's caregiver, does have a last support at her home. She does use mirtazapine 7.5 mg for sleep with good effect. Medications: Refilled mirtazapine 7.5 mg PO BEDTIME 30 days 30 tabs 1RF F41.1 - Generalized anxiety disorder donepezil 5 mg PO DAILY 90 days 90 tabs 1RF F03.90 - Unspecified dementia, unspecified severity, without behavioral disturbance, psychotic disturbance, mood disturbance, and anxiety Coding Level of Care Code Est Pt Level 3 (24803) Complex EM visit Add On G2211 Diagnoses Mixed hyperlipidemia E78.2 Hyperlipidemia type: mixed hyperlipidemia Moderate dementia with anxiety, unspecified dementia type F03.B4 Dementia type: unspecified type Dementia severity: moderate Dementia behavioral or psychological symptom: with anxiety Hypothyroidism, unspecified type E03.9 Hypothyroidism type: unspecified TRAMAINE (generalized anxiety disorder) F41.1 Additional Codes TRAMAINE-7 Assessment Billing - TRAMAINE-7 Assessment Tool: TRAMAINE-7 Assessment 37855 ([id number]) Vital Signs *Quality* - CPT code: 62222 - 4-10 Minutes ([id number])
== END 2023-07-11 14:27 | disposition home or self-care (01) ==
LOC: HO.HMGH 10:54
PROVIDERS: PCP Physician Assistant; Visit Provider Physician Assistant
DX: E78.2 Mixed hyperlipidemia (principal); F03.B4 Unspecified dementia, moderate, with anxiety; E03.9 Hypothyroidism, unspecified; F41.1 Generalized anxiety disorder
CPT/HCPCS: 99213; G2211

== ENCOUNTER 2023-09-17 11:32 | Outpatient (AMB) | payer MEDICARE, SELFPAY ==
[2023-09-17 12:03] VITALS: BP 116/58; PULSE 96; O2SAT 96; BMI 24.9
[2023-09-17 12:09] VITALS: BMI 24.9
--- NOTE | 2023-09-17 12:09 | A.OFFVIS_ITS ---
Intake Vital Signs 09/17/23 12:03 09/17/23 12:09 Height 5 ft 2 in Weight 136 lb 0.403 oz BMI 24.9 24.9 BP 116/58 L Blood Pressure Location Lt brachial Position Sitting Pulse 96 Pulse Source Pulse Oximeter Pulse Oximetry (%) 96 Oxygen Delivery Method Room Air Intake Visit Reasons: sawv PE Bird Raiser Required: No Accompanied by: Daughter Allergies azithromycin Allergy (Unknown, Verified 09/17/23 12:29) Unknown codeine Allergy (Unknown, Verified 09/17/23 12:29) Unknown docusate [From Colace] Allergy (Unknown, Verified 09/17/23 12:29) red rash, hand swelling latex [LATEX] Allergy (Unknown, Verified 09/17/23 12:29) ITCHY levofloxacin [Levaquin] Allergy (Unknown, Verified 09/17/23 12:29) Unknown oxybutynin Allergy (Unknown, Verified 09/17/23 12:29) red rash,hand swelling Sulfa (Sulfonamide Antibiotics) [SULFA (SULFONAMIDE ANTIBIOTICS)] Allergy (Unknown, Verified 09/17/23 12:29) RASH, Hives, hives Medication List - Last Reconciled 09/17/23 by Niall Cain PA-C donepezil 5 mg PO DAILY 90 days mirtazapine 7.5 mg PO BEDTIME 30 days HPI sawv PE HPI Details Patient is a 83-year-old female here today for an annual wellness visit. Patient here today with her caregiver whom gives most of the history. . Patient has a past medical history sig nificant for hypothyroidism, moderate to severe dementia, smoker, anxiety, depression. Today we reviewed patient's [place] of care and end of life planning. Does have a MOLST at home that is filled out we will bring in to place in documents. Bone density: Done in 2019 that did show osteoporosis. Considering getting bone density again Vaccines: Up-to-date with COVID, tetanus, considering repeat pneumonia vaccine. HPI Comments History of Present Illness Details reviewed past medical history- yes reviewed surgical / hospitalization history- yes reviewed current medications- yes reviewed family history- yes home safety throw rugs? grab bars? raised toilet seat? working smoke detectors? activities of daily living difficulty bathing or showering? difficulty dressing? difficulty using the toilet? difficulty getting in and out of bed? difficulty walking? receives help from other person's with any of the above tasks? instrumental activities of daily living uses telephone - gets to place out of walking distance- go shopping for groceries- repairs own meals- does own minor home maintenance- does own laundry- does own housework- manages own money- currently takes medication- end of life planning discussed advanced directives- yes advanced directives on file? discussed wishes expressed in advanced directives. fall risk have you had any falls with injuries in the past year? have you had 2 or more falls in the past year? fall risk assessment: [facility] Medical History HLD (hyperlipidemia) TRAMAINE (generalized anxiety disorder) Hypothyroid Surgical History History of cystoscopy History of tonsillectomy History of cataract surgery History of section Family History Father Lung cancer Mother Hypertension MRSA infection Family history of thyroid problem Social History Household Members: None Housing: House Do you presently have visiting nurse or other home services: No Alcohol intake: never Patient Tobacco Use Status: Current everyday Tobacco user Tobacco use type: Cigarette Cigarettes Per Day: 10 Second Hand Smoke Exposure: No service: No Cognitive needs: No Hearing needs: No Vision needs: No Questionnaire Medicare Wellness Checkup What is your age?: 80 or older What gender do you identify with?: female During the past 4 weeks, how much have you been bothered by emotional problems such as feeling anxious, depressed, irritable, sad or downhearted, and blue?: not at all During the past 4 weeks, has your physical & emotional health limited your social activities with family, friends, neighbors, or groups?: not at all During the past 4 weeks, how much bodily pain have you generally had?: very mild pain During the past 4 weeks, was someone available to help you if you needed & wanted help?: yes, quite a bit During the past 4 weeks, what was the hardest physical activity you could do for at least 2 minutes?: light Can you get to places out of walking distance without help? (For eg., can you travel alone on buses, taxis or drive your car?): No Can you go shopping for groceries or clothes without someone's help?: No Can you prepare your own meals?: No Can you do your housework without help?: No Because of any health problems, do you need the help of another person with your personal care needs such as eating, bathing, dressing or getting around the house?: No Can you handle your own money without help?: No During the past 4 weeks, how would you rate your health in general?: very good During the past 4 weeks how have things been going for you?: pretty well Are you having difficulties driving your car?: not applicable, I don't use a car Do you always fasten your seat belt when you are in a car?: yes, usually During past 4 weeks, have you been bothered by the following: never: Falling or dizzy when standing up, Sexual problems?, Trouble eating well? and Teeth or denture problems?, seldom: Problems using the telephone? and sometimes: Tiredness or fatigue? Have you fallen 2 or more times in the past year?: No Are you afraid of falling?: No Are you a smoker?: yes, but I'm not ready to quit During the past 4 weeks, how many drinks of wine, beer, or other alcoholic beverages did you have?: no alcohol at all Do you exercise for about 20 minutes 3 or more times a week?: no, I usually do not exercise this much Have you been given information to help with the following?: no: Hazards in your house that might hurt you? and no: Keeping track of your medications? How often do you have trouble taking medicines the way you have been told to take them?: I always take medicine as prescribed How confident are you that you can control & manage most of your health problems ?: very confident What is your race?: White Activity of Daily Living Bathing - sponge bath, tub bath or shower: receives help in bathing only one body part (such as back or leg) Dressing - getting clothes from closets & drawers, including inner/outer garments & fasteners.: gets clothes & gets completely dressed without help Toileting - going to the 'toilet room' for urine/bowel elimination & cleaning self/arranging clothes: goes to toilet room, cleans self, arranges clothes without help Transfer: moves in & out of bed and chair without help (may use support object) Continence: has occasional 'accidents' Feeding: feeds self without help Total Score: 0 Information obtained from: patient Using telephone: independent Traveling: needs assistance Shopping: dependent Preparing meals: dependent Housework: dependent Taking medicine: dependent Managing money: dependent PHQ-9 Over the last 2 weeks, how often have you been bothered by any of the following problems? 1. Little interest or pleasure in doing things: not at all 2. Feeling down, depressed, or hopeless: not at all 3. Trouble falling or staying asleep, or sleeping too much: not at all 4. Feeling tired or having little energy: several days 5. Poor appetite or overeating: not at all 6. Feeling bad about yourself - or that you are a failure or have let yourself or your family down: not at all 7. Trouble concentrating on things, such as reading the newspaper or watching television: not at all 8. Moving or speaking so slowly that other people could have noticed. Or the opposite - being so fidgety or restless that you have been moving around a lot more than usual: not at all 9. Thoughts that you would be better off or of hurting yourself in some wa y: not at all Total score: 1 Depression Screening Interpretation: Negative Depression Screening Done: Yes 63368 - PHQ-9 Billing: Yes Source: Developed by Drs. Chava Rosenthal, Elisha Gallego, Tristan Lozano and colleagues, with an educational alysia from [employer]. Physical Exam Vital Signs: Last Vital Signs Pulse 96 09/17/23 12:03 BP 116/58 L 09/17/23 12:03 Pulse Ox 96 09/17/23 12:03 Oxygen Delivery Method Room Air 09/17/23 12:03 BMI result Body Mass Index 24.9 HEENT Other: hearing screening whisper test- Eyes Other: vision screening- not evaluated Other: urinary incontinence? Yes Neuro Other: balance Romberg- normal tandem walk test- able walk-in turned test- able rise from sit to stand- within 3 seconds Assessment & Plan Assessment & Plan (1) Encounter for subsequent annual wellness visit (AWV) in Medicare patient: Code(s): Z00.00 - Encounter for general adult medical examination without abnormal findings Plan: As per [facility] Quality Reporting (2019) Depression/Bipolar (159/160/161/177) PHQ-9: Total score: 1 Coding Level of Care Code Medicare Subsequent (G0439) Diagnoses Encounter for subsequent annual wellness visit (AWV) in Medicare patient Z00.00 CPT Codes Advance Care Planning - Time spent: 1-15 minutes, not on file ([id number]) Advance Care Planning Advance Care Planning discussion: Exists, not on file Date of discussion: 09/17/23 Forms completed: MOLST Time spent: 1-15 minutes, not on file Actual minutes spent: 4
== END 2023-09-17 14:22 | disposition home or self-care (01) ==
PROVIDERS: PCP Physician Assistant; Visit Provider Physician Assistant
DX: Z00.00 Encounter for general adult medical examination without abnormal findings (principal)
CPT/HCPCS: 1124F; G0439

== ENCOUNTER 2024-03-29 21:46 | Emergency (ER) | payer MEDICARE, SELFPAY ==
--- NOTE | ~2024-03-29 | CT_ITS ---
CLINICAL HISTORY: fall, weakness CT head without contrast Comparison: CT/SR - CT HEAD/BRAIN WO IV CON - 12/27/22 14:13 EST MR - MRI BRAIN WITH CONTRAST [id number] - 10/02/11 14:37 EDT Findings: There is no acute intracranial hemorrhage. There is stable mild ex vacuo dilation of the ventricles. No mass effect or midline shift is present. The ch-white matter differentiation appears normal. There is generalized cerebral atrophy. Hypoattenuation in the deep cerebral white matter appears stable and is consistent with chronic small vessel ischemic disease. There is a stable 1.2 cm partially calcified extra-axial nodule in the midline along the anterior inferior frontal lobes consistent with a meningioma. The visualized portions of the orbits, paranasal sinuses, and mastoids are unremarkable. No fractures are identified. IMPRESSION: 1. No acute intracranial abnormality. 2. Stable chronic findings as above. This document has been electronically signed by: Edgardo Hunter MD on 03/30/2024 00:21:03
--- NOTE | ~2024-03-29 | CT_ITS ---
CLINICAL HISTORY: fall, weakness CT cervical spine without contrast Comparison: CT/SR - CT CERVICAL SPINE WO IV CON - 12/27/22 14:13 EST Findings: Alignment of the cervical spine is within normal limits. There is no fracture. There is atlantoaxial arthritis. There is multilevel mild and moderate degenerative disc disease greatest at C6-7. There are multilevel disc bulges and/or protrusions causing central canal stenoses which appears greatest at C3-4 in which there is severe central canal stenosis. There is multilevel facet and uncovertebral joint osteoarthritis with associated neuroforaminal stenoses. There is carotid artery calcification. There is centrilobular emphysema in the lung apices. IMPRESSION: 1. No evidence of cervical spine injury. 2. Cervical spondylosis. This document has been electronically signed by: Edgardo Hunter MD on 03/30/2024 00:15:47
[2024-03-29 21:57] VITALS: BP 102/65; BP 142/64; PULSE 76; PULSE 96; RESP 20; TEMP 36.6; O2SAT 96; BMI 26.0
--- NOTE | 2024-03-29 23:24 | PC.NURSE ---
patient refusing to keep c collar on, removed herself.
[2024-03-29] MEDS: Acetaminophen 325 MG TABLET 975 MG PO (23:32)
--- NOTE | 2024-03-29 23:57 | ED.GENADULT ---
HPI - General Adult General Chief complaint: Fall Stated complaint: Fall Time Seen by Provider: 03/29/24 23:21 Source: patient, RN notes reviewed, old records reviewed and other (friend/neighbor) Mode of arrival: EMS Limitations: other (History of dementia) History of Present Illness ED Provider: Gabriela HPI narrative: 83-year-old female past medical history significant for dementia, hypothyroidism, anxiety, hyperlipidemia presents for evaluation after a fall. Presents with her next door neighbor The patient fell twice today The patient was trying to get onto her couch when she slid down the front of the couch. The patient arrives in his C-collar. This fall was unwitnessed. Per the patient's caregiver who is also her next-door neighbor, she has been slightly more confused than usual and she was concerned the patient has a UTI Related Data Previous Rx's ?Medication ?Instructions ?Recorded donepezil 5 mg tablet 5 mg PO DAILY 90 days #90 tabs 07/11/23 mirtazapine 7.5 mg tablet 7.5 mg PO BEDTIME 30 days #30 tabs 01/17/24 cefuroxime axetil 250 mg tablet 250 mg PO Q12H #10 tabs 03/30/24 Allergies Allergy/AdvReac Type Severity Reaction Status Date / Time azithromycin Allergy Unknown Unknown Verified 03/29/24 21:59 codeine Allergy Unknown Unknown Verified 03/29/24 21:59 docusate [From Colace] Allergy Unknown red rash, Verified 03/29/24 21:59 hand swelling latex [LATEX] Allergy Unknown ITCHY Verified 03/29/24 21:59 levofloxacin [Levaquin] Allergy Unknown Unknown Verified 03/29/24 21:59 oxybutynin Allergy Unknown red Verified 03/29/24 21:59 rash,hand swelling Sulfa (Sulfonamide Allergy Unknown RASH, Verified 03/29/24 21:59 Antibiotics) Hives, [SULFA (SULFONAMIDE hives ANTIBIOTICS)] Review of Systems Constitutional: Constitutional: Denies body ache(s), Denies chills, Denies fever(s), Reports frequent falls and Reports headache(s) Eyes: Eyes: Denies blurry vision and Denies exophthalmos ENT: Denies vertigo, Denies dizziness and Reports headache(s) Cardiovascular: Cardiovascular: Denies chest pain and Denies chest pain at rest Respiratory: Respiratory: Denies cough Gastrointestinal: Gastrointestinal: Denies abdominal pain, Denies nausea and Denies vomiting Musculoskeletal: Musculoskeletal: Denies back pain, Denies arthralgias, Denies joint swelling and Denies limited range of motion Integumentary/Breasts: Skin/Breast: Denies rash Neurologic: Denies vertigo, Denies dizziness, Reports frequent falls and Reports headache(s) [facility] Past Medical History Medical History HLD (hyperlipidemia) TRAMAINE (generalized anxiety disorder) Hypothyroid Surgical History History of cystoscopy History of tonsillectomy History of cataract surgery History of section Family History Family History Father Lung cancer Mother Hypertension MRSA infection Family history of thyroid problem Social History Social History Household Members: None Housing: House Do you presently have visiting nurse or other home services: No Alcohol intake: never Patient Tobacco Use Status: Current everyday Tobacco user Tobacco use type: Cigarette Cigarettes Per Day: 10 Second Hand Smoke Exposure: No Advance Directives: No Advance Directives Information Provided: Yes service: No Cognitive needs: No Hearing needs: No Vision needs: No Physical Exam ED Vital Signs: Vital Signs - 24 hr 03/29/24 21:57 Temperature 97.9 F Pulse Rate 76 Respiratory Rate 20 Blood Pressure 102/65 Pulse Oximetry 96 Oxygen Delivery Method Room Air BMI result Body Mass Index 26.0 Const General: healthy appearing, comfortable, no acute distress, alert and awake Nutritional Appearance: well nourished Orientation/consciousness: patient oriented x3 HENMT Head: Yes normocephalic and Yes atraumatic Eyes Eyelids: Yes eyelids normal Conjunctivae: conjunctivae normal Sclerae: sclerae normal Corneas: corneas normal Pupils: Equal, round and reactive pupils present EOM: EOMs intact bilaterally Neck Neck: Yes full ROM Resp Effort & Inspection: normal respiratory effort, able to speak in complete sentences and not labored GI Inspection: No distended Palpation (GI): Soft to palpation, not firm, nontender, no guarding and not rigid Auscultation: normoactive bowel sounds Skin General skin exam: elasticity normal Neuro General: patient oriented x3 Cranial nerves: Yes CN's II-XII intact bilaterally, Yes Equal, round and reactive pupils present and Yes Bilaterally intact EOM present Cognition (Neuro): normal cognition Extrem Other: Moving all extremities well without any obvious deformities. No tenderness with manipulation of the hips/pelvis. Course Reevaluation(s) Reevaluation #1: I again discussed potential rehab with the patient and caregiver and they decline. They would like to be discharged with treatment for the UTI Time: 00:45 Medications Administered Discontinued Medications Generic Name Dose Route Start Last Admin Trade Name Freq PRN Reason Stop Dose Admin Acetaminophen 975 mg 03/29/24 23:27 03/29/24 23:32 Acetaminophen 325 Mg Tablet PO 03/29/24 23:28 975 mg ONCE ONE Administration Medical Decision Making Medical Decision Making MDM Narrative: With past medical history as documented above presents for evaluation after 2 separate falls today. She did complain of the headache but currently denies any headache. She was neurologically intact, no deficits. The patient does have dementia at baseline but he is answering questions appropriately. She has a history of UTIs and encephalopathy related to UTIs. We will check urinalysis. We will get a CT scan of the brain and cervical spine. The patient did remove her own C-collar. She has no C-spine tenderness but given her dementia we will still get a CT scan of the cervical spine. We will also check basic labs and an EKG. The patient and caregiver report the patient has visiting physical therapy being scheduled for next week. She is not interested in short-term rehab as long as her workup is unremarkable Differential Diagnosis Differential Diagnoses: The differential diagnosis associated with the presentation includes UTI Mechanical fall Weakness ETIENNE Dehydration Intracranial hemorrhage Cervical fracture Lab Data 03/29/24 23:57 03/29/24 23:57 Labs: Lab Results 03/29/24 03/29/24 03/30/24 Range/Units 23:49 23:57 00:19 WBC 9.7 (4.8-10.8) X10*3/uL RBC 4.25 (4.20-5.50) X10*6/uL Hgb 13.4 (12.0-16.0) g/dl Hct 40.3 (37.0-47.0) % MCV 94.8 (80.0-98.0) fL MCH 31.5 (27.0-33.0) pg MCHC 33.3 (31.0-35.0) g/dl RDW 12.9 (11.0-16.0) % Plt Count 257 (160-400) X10*3/uL MPV 9.5 (9.4-12.3) fL Immature Gran % (Auto) 0.3 (0.0-0.4) % Neut % (Auto) 72.1 (45-73) % Lymph % (Auto) 18.9 L (20-40) % [place] % (Auto) 8.2 (2-11) % Eos % (Auto) 0.4 (0-4) % Baso % (Auto) 0.1 (0-2) % Lymph # (Auto) 1.8 (1.2-4.9) X10*3/uL [place] # (Auto) 0.8 (0.1-1.2) X10*3/uL Eos # (Auto) 0.0 (0.0-0.4) X10*3/uL Baso # (Auto) 0.0 (0.0-0.2) X10*3/uL Abs Immat Gran (auto) 0.03 (0.00-0.03) X10*3/uL Absolute Neuts (auto) 7.0 (2.0-8.3) x10*3/uL Absolute Nucleated RBC 0.000 (0.0-0.012) X10*3/uL Nucleated RBC % (auto) 0.0 (0.0-0.2) /100WBC Sodium 143 (135-145) mmol/L Potassium 3.5 (3.3-5.1) mmol/L Chloride 110 H (96-108) mmol/L Carbon Dioxide 22 (22-29) mmol/L Anion Gap 15 (12-20) BUN 19 H (9-16) mg/dL Creatinine 0.75 (0.5-1.4) mg/dL Estim Creat Clear Calc 56.1 Estimated GFR > 60 Random Glucose 91 (60-115) mg/dL Calcium 9.3 D (8.4-10.2) mg/dL Magnesium 2.2 (1.6-2.6) mg/dL Total Bilirubin 0.7 (0.0-1.0) mg/dL AST 26 (5-31) U/L ALT 15 (0-31) U/L Alkaline Phosphatase 85 (39-117) U/L B-Natriuretic Peptide 20 (<100) pg/mL Total Protein 7.1 (6.5-8.0) g/dL Albumin 4.0 (3.5-5.0) g/dL Lipase 10 (8-78) U/L Urine Color Yellow Urine Appearance Turbid Urine pH 5.0 (5.0-9.0) Ur Specific [place] 1.025 (1.005-1.025) Urine Protein Trace (Neg-Trace) mg/dL Urine Glucose (UA) Negative (Negative) mg/dL Urine Ketones 15 (Negative) mg/dL Urine Blood Small (1+) H (Negative) Urine Nitrite Positive H (Negative) Ur Leukocyte Esterase Large (3+) H (Negative) Urine RBC 0-2 (0-2) /HPF Urine WBC >50 H (0-5) /HPF Urine WBC Clumps Present Ur Squamous Epith Cells 11-20 (0-2) /HPF Urine Bacteria 4+ (None Seen) Hyaline Casts 3-5 (0-2) /LPF Influenza Type A (PCR) NEGATIVE (Negative) Influenza Type B (PCR) NEGATIVE (Negative) RSV RNA Qual (PCR) NEGATIVE (Negative) SARS-CoV-2 RNA (RT-PCR) NEGATIVE (Negative) Discharge Plan Discharge Clinical Impression: Fall, Urinary tract infection Dementia Qualifiers: Dementia type: unspecified type Dementia severity: moderate Dementia behavioral or psychological symptom: with anxiety Qualified Code(s): F03.B4 - Unspecified dementia, moderate, with anxiety Patient Disposition: Home, Self-Care Instructions: Fall Prevention for Older Adults (ED), Urinary Tract Infection in Older Adults (ED) Additional Instructions: Your blood work today was reassuring. Your urinalysis was consistent with a UTI. Take the antibiotics twice daily for the next 5 days Follow-up with your primary doctor, return for new or worsening symptoms Prescriptions: New cefuroxime axetil 250 mg tablet 250 mg PO Q12H Qty: 10 0RF No Action mirtazapine 7.5 mg tablet 7.5 mg PO BEDTIME 30 Days Qty: 30 3RF donepezil 5 mg tablet 5 mg PO DAILY 90 Days Qty: 90 1RF Print Language: [place] Citizen
[2024-03-30 00:02] LABS: MANUAL DIFF FLAG NO
[2024-03-30 00:03] LABS: Basophils Percent Auto 0.1 % (0-2); Eosinophils Percent Auto 0.4 % (0-4); Hematocrit 40.3 % (37.0-47.0); Hemoglobin 13.4 g/dl (12.0-16.0); Imm Gran Abs Auto 0.03 X10*3/uL (0.00-0.03); Imm Gran Pct Auto 0.3 % (0.0-0.4); Lymphocytes Absolute Auto 1.8 X10*3/uL (1.2-4.9); Lymphocytes Percent Auto 18.9 % (20-40); Mean Corpuscular HGB Conc 33.3 g/dl (31.0-35.0); Mean Corpuscular Hemoglobin 31.5 pg (27.0-33.0); Mean Corpuscular Volume 94.8 fL (80.0-98.0); Mean Platelet Volume 9.5 fL (9.4-12.3); Monocytes Absolute Auto 0.8 X10*3/uL (0.1-1.2); Monocytes Percent Auto 8.2 % (2-11); Neutrophils Percent Auto 72.1 % (45-73); Platelet Count 257 X10*3/uL (160-400); Red Blood Count 4.25 X10*6/uL (4.20-5.50); Red Cell Distribution Width 12.9 % (11.0-16.0); White Blood Count 9.7 X10*3/uL (4.8-10.8)
[2024-03-30 00:18] LABS: Alanine Aminotransferase 15 U/L (0-31); Alkaline Phosphatase 85 U/L (39-117); Anion Gap 15 (12-20); Aspartate Amino Transferase 26 U/L (5-31); Bilirubin Total 0.7 mg/dL (0.0-1.0); Blood Urea Nitrogen 19 mg/dL (9-16); Calcium 9.3 mg/dL (8.4-10.2); Carbon Dioxide 22 mmol/L (22-29); Chloride 110 mmol/L (96-108); Creatinine Clr Calc Pharmacy 56.1; Estimated Glomerular Filt Rate > 60; Glucose Random 91 mg/dL (60-115); Lipase 10 U/L (8-78); Magnesium 2.2 mg/dL (1.6-2.6); Potassium 3.5 mmol/L (3.3-5.1); Sodium 143 mmol/L (135-145); Total Protein 7.1 g/dL (6.5-8.0)
[2024-03-30 00:22] LABS: B Type Natriuretic Peptide 20 pg/mL (<100)
[2024-03-30 00:24] LABS: Appearance Urine Turbid; Color Urine Yellow; Glucose Urine UA Negative (Negative); Leukocyte Esterase Urine Large (3+) (Negative); Nitrite Urine Positive (Negative); Specific Gravity - Urine 1.025 (1.005-1.025); UMIC TRIGGER UACC YES; Urine Blood Small (1+) (Negative); Urine Ketones 15 mg/dL (Negative); Urine Protein Trace mg/dL (Neg-Trace)
[2024-03-30 00:38] LABS: Bacteria Urine 4+ (None Seen); RBC Urine 0-2 /HPF (0-2); UACC Culture Trigger YES; WBC Clumps Urine Present; WBC Urine >50 /HPF (0-5)
[2024-03-30 00:39] LABS: Influenza A PCR NEGATIVE (Negative); Influenza B PCR NEGATIVE (Negative); Resp Syncy Virus RNA Qual PCR NEGATIVE (Negative); SARS COV2 PCR INHOUSE NEGATIVE (Negative)
--- NOTE | 2024-03-30 00:53 | MHC.EDTECH ---
Bertrand ESPARZA does not want EKG anymore.
[2024-03-30] MEDS: cefuroxime axetiL 500 MG TABLET PO (00:54)
[2024-03-30 01:01] VITALS: BP 100/62; PULSE 90; RESP 20; TEMP 36.8; O2SAT 99
== END 2024-03-30 01:02 | disposition home or self-care (01) ==
PROVIDERS: Physician Assistant; Emergency Provider Emergency Medicine Emergency Medical Services
DX: S09.90XA Unspecified injury of head, initial encounter (principal); F03.B4 Unspecified dementia, moderate, with anxiety; N39.0 Urinary tract infection, site not specified; M54.2 Cervicalgia; R51.9 Headache, unspecified; R06.02 Shortness of breath; F17.210 Nicotine dependence, cigarettes, uncomplicated; W19.XXXA Unspecified fall, initial encounter; Y93.9 Activity, unspecified; Y92.9 Unspecified place or not applicable; Y99.8 Other external cause status; Z91.81 History of falling; Z79.899 Other long term (current) drug therapy; Z03.818 Encounter for observation for suspected exposure to other biological agents ruled out
CPT/HCPCS: 0241U; 70450; 72125; 80053; 81001; 83690; 83735; 83880; 85025; 87086; 87088; 87186; 99284

== ENCOUNTER → 2024-03-29 23:27 | Outpatient (BNV) | payer MEDICARE, SELFPAY | PROVIDERS: Emergency Provider Emergency Medicine Emergency Medical Services; Visit Provider Radiology Diagnostic Radiology | DX: I67.82 Cerebral ischemia (principal); M47.812 Spondylosis without myelopathy or radiculopathy, cervical region | CPT/HCPCS: 70450; 72125 ==

== ENCOUNTER 2024-04-05 13:45 | Outpatient (REF) | payer MEDICARE, SELFPAY ==
[2024-04-05 15:51] LABS: Appearance Urine Cloudy; Color Urine Yellow; Glucose Urine UA Negative (Negative); Leukocyte Esterase Urine Negative (Negative); Nitrite Urine Positive (Negative); PH 7.5 (5.0-9.0); Specific Gravity - Urine 1.015 (1.005-1.025); UMIC TRIGGER UACC YES; Urine Blood Trace (Negative); Urine Ketones 15 mg/dL (Negative); Urine Protein Negative (Neg-Trace)
[2024-04-05 18:09] LABS: Bacteria Urine None Seen (None Seen); Hyaline Casts Urine 0-2 /LPF (0-2); RBC Urine >20 /HPF (0-2); Squamous Epithelial Cell Urine >20 /HPF (0-2); UACC Culture Trigger YES; WBC Urine 0-5 /HPF (0-5)
== END 2024-04-05 13:46 | disposition home or self-care (01) ==
LOC: HO.HMGCLNP 13:45
PROVIDERS: PCP Physician Assistant; Visit Provider Internal Medicine
DX: Z13.89 Encounter for screening for other disorder (principal)
CPT/HCPCS: 81001; 81003; 87086

== ENCOUNTER 2024-04-05 17:10 | Emergency (ER) | payer MEDICARE, SELFPAY ==
--- NOTE | ~2024-04-05 | CT_ITS ---
CLINICAL HISTORY: Fall CT cervical spine without contrast Comparison: 03/29/2024 Findings: Vertebral alignment is within normal limits. Multilevel disc space narrowing and endplate osteophyte formation, as well as facet hypertrophy. No acute fractures or dislocations. No acute findings on limited view of the intracranial contents. Soft tissues of the neck are normal. No consolidation or effusion at the lung apices. IMPRESSION: No acute findings. This document has been electronically signed by: Katelyn Ortiz MD on 04/05/2024 20:52:43
--- NOTE | ~2024-04-05 | XR_ITS ---
CLINICAL HISTORY: Fall 1 view chest x-ray Comparison: CR/SR - XR CHEST 1V - 12/27/22 14:25 EST CR/SR - XR CHEST 2V - 12/05/22 18:56 EDT Findings: Mild diffuse reticulonodular pulmonary opacity. Normal size heart. Right femoral head/neck fracture as before. IMPRESSION: Mild atypical pneumonia. This document has been electronically signed by: Katelyn Ortiz MD on 04/05/2024 18:39:21
--- NOTE | ~2024-04-05 | XR_ITS ---
CLINICAL HISTORY: Fall right hip pain 3 view, pelvis and right hip Comparison: CR/SR - XR HIP RT W PEL1V - 12/27/2022 02:20 PM EST Findings: The bones are intact. Periarticular osteophyte formation at the bilateral hip joints. The soft tissues are unremarkable. IMPRESSION: No acute findings. This document has been electronically signed by: Katelyn Ortiz MD on 04/05/2024 18:44:17
--- NOTE | ~2024-04-05 | CT_ITS ---
CLINICAL HISTORY: Fall CT head without contrast Comparison: CT/SR - CT HEAD/BRAIN WO IV CON - 03/29/24 23:40 EST Findings: No intra-axial mass, midline shift, hydrocephalus, or acute hemorrhage. There is an extra-axial 10 mm focus within the anterior interhemispheric fissure inferiorly with peripheral calcifications. Mild diffuse cerebral volume loss. Mild degree of patchy low-density within the periventricular and subcortical white matter. The visualized paranasal sinuses and mastoid air cells are normal. The orbits are unremarkable. No skull fracture. IMPRESSION: 1. No acute intracranial findings. 2. No change in small anterior parafalcine meningioma. This document has been electronically signed by: Katelyn Ortiz MD on 04/05/2024 20:46:40
--- NOTE | ~2024-04-05 | XR_ITS ---
CLINICAL HISTORY: Fall, right wrist pain. 4 view right wrist Comparison: None Findings: Bones intact. No dislocations. No significant arthritic change or erosions. No radiopaque foreign body. IMPRESSION: 1. No acute findings This document has been electronically signed by: Katelyn Ortiz MD on 04/05/2024 18:45:12
[2024-04-05 17:34] VITALS: BP 112/76; BP 147/95; PULSE 65; PULSE 86; RESP 18; TEMP 37.2; O2SAT 97; O2SAT 98; BMI 22.2
--- NOTE | 2024-04-05 17:41 | ECG_ITS ---
Test Reason : FALL Blood Pressure : */* mmHG Vent. Rate : 82 BPM Atrial Rate : 82 BPM P-R Int : 166 ms QRS Dur : 52 ms QT Int : 406 ms P-R-T Axes : 76 -21 45 degrees QTcB Int : 474 ms Normal sinus rhythm cannot exclude old Inferior infarct , age undetermined Abnormal ECG When compared with ECG of 27-Dec-2022 14:39, Premature ventricular complexes are no longer Present Referred By: Shellie Banda Electronically Signed By: CAMI LYONS
--- NOTE | 2024-04-05 17:43 | ED.FALL ---
HPI - Fall General Chief Complaint: Fall Stated Complaint: FALL HAND PAIN Time Seen by Provider: 04/05/24 17:34 Source: patient, EMS and old records reviewed Mode of arrival: EMS Limitations: no limitations History of Present Illness ED Provider: DR. Banda HPI Narrative: 83-year-old female past medical history significant for dementia, hypothyroidism, anxiety, hyperlipidemia came in by ambulance after sustained a fall, patient came from home where she has a caregiver 04/09, history of multiple falls over the last few days patient was seen in the ED on 03/29 for a fall and was sent back home. Patient in the ED is a poor historian history was obtained from old record and EMS report. Patient is not taking anticoagulation. Patient complained of a right wrist/right hip pain no apparent deformity is appreciated. Related Data Previous Rx's ?Medication ?Instructions ?Recorded donepezil 5 mg tablet 5 mg PO DAILY 90 days #90 tabs 07/11/23 mirtazapine 7.5 mg tablet 7.5 mg PO BEDTIME 30 days #30 tabs 01/17/24 cefuroxime axetil 250 mg tablet 250 mg PO Q12H #10 tabs 03/30/24 Allergies Allergy/AdvReac Type Severity Reaction Status Date / Time azithromycin Allergy Unknown Unknown Verified 04/05/24 17:37 codeine Allergy Unknown Unknown Verified 04/05/24 17:37 docusate [From Colace] Allergy Unknown red rash, Verified 04/05/24 17:37 hand swelling latex [LATEX] Allergy Unknown ITCHY Verified 04/05/24 17:37 levofloxacin [Levaquin] Allergy Unknown Unknown Verified 04/05/24 17:37 oxybutynin Allergy Unknown red Verified 04/05/24 17:37 rash,hand swelling Sulfa (Sulfonamide Allergy Unknown RASH, Verified 04/05/24 17:37 Antibiotics) Hives, [SULFA (SULFONAMIDE hives ANTIBIOTICS)] Review of Systems Review of Systems: Yes Unobtainable due to mental condition (Chronic dementia) [facility] Past Medical History Medical History HLD (hyperlipidemia) TRAMAINE (generalized anxiety disorder) Hypothyroid Surgical History History of cystoscopy History of tonsillectomy History of cataract surgery History of section Family History Family History Father Lung cancer Mother Hypertension MRSA infection Family history of thyroid problem Social History Social History Household Members: None Housing: House Do you presently have visiting nurse or other home services: No Alcohol intake: never Patient Tobacco Use Status: Current everyday Tobacco user Tobacco use type: Cigarette Cigarettes Per Day: 10 Second Hand Smoke Exposure: No Advance Directives: No Advance Directives Information Provided: No service: No Cognitive needs: No Hearing needs: No Vision needs: No Physical Exam Vital Signs: Vital Signs: Last Vital Signs Temp 98.9 F 04/05/24 17:34 Pulse 80 04/05/24 18:16 Resp 14 04/05/24 18:16 BP 125/65 04/05/24 18:16 Pulse Ox 98 04/05/24 18:16 O2 Del Method Room Air 04/05/24 18:16 BMI result Body Mass Index 22.2 Vital signs have been reviewed and appear to be correct. Blood pressure elevated. Heart rate normal. Respiratory rate normal. Temperature normal. Oxygen saturation normal. Appearance: Alert. Oriented X3. No acute distress. Head: Normal external exam. Normocephalic. Atraumatic. No Esparza signs noted. No raccoon eyes noted Eyes: PERRLA. EOMI. Conjunctiva and sclera normal. Eyelids normal. ENT: TM's Normal. Pharynx normal. Uvula midline. Moist mucous membranes. No trismus noted. No drooling noted. No muffled voice noted. Neck: Normal inspection. Neck supple. FROM. No adenopathy. Thyroid Normal. No meningeal signs. No neck mass noted. CVS: Normal heart rate and rhythm. Heart sound normal. No murmurs noted. Pulses normal throughout. Respiratory: No respiratory distress. Painless inspiration. Breath sounds normal. No wheezes/rales/rhonchi noted. Chest nontender. No accessory muscle usage noted or decreased air movement noted. Abdomen: Soft and nontender. Bowel sounds normal in all 4 quadrants. No distention noted. No organomegaly noted. No visible injury noted. Back: No CVA tenderness. Full range of motion noted. Skin: Skin warm and dry. Normal skin color. Normal skin turgor. No rashes/lesions/lacerations noted. Extremities: No lower extremity edema. Extremities exhibit normal range of motion. Extremities nontender. Neuro: Oriented X 3. Cranial nerve exam: II-XII are grossly intact No motor deficit. No sensory deficit. Reflexes normal. Course Reevaluation(s) Reevaluation #1: 83-year-old female lives home with 24/7 caregiver at home patient been sustaining frequent falls, recent ED visit for unwitnessed fall and today presented after a mechanical fall. No acute injuries today. Will keep the patient for observation, get PT evaluation and case management for possible placement. Chest x-ray was read as mild atypical pneumonia, patient do not have any cough, normal white count, O2 sat is normal, RR is normal. Time: 20:34 Medications Administered Discontinued Medications Generic Name Dose Route Start Last Admin Trade Name Freq PRN Reason Stop Dose Admin Doxycycline Monohydrate 100 mg 04/05/24 18:45 04/05/24 20:28 Doxycycline Monohydrate 100 Mg Capsule PO 04/05/24 18:46 100 mg ONCE ONE Administration Medical Decision Making Differential Diagnosis Differential Diagnoses: The differential diagnosis associated with the presentation includes (Intracranial bleed, cervical spine injury, right hip fracture, right wrist fracture, cervical spine fracture.) Admission/Observation Consideration of admission/observation: Escalation of care including admission/observation considered Lab Data MDM Lab Attestation statement: I reviewed the patient's lab results. 04/05/24 18:49 04/05/24 18:49 Labs: Lab Results 04/05/24 Range/Units 18:49 WBC 10.0 (4.8-10.8) X10*3/uL RBC 4.30 (4.20-5.50) X10*6/uL Hgb 13.4 (12.0-16.0) g/dl Hct 39.7 (37.0-47.0) % MCV 92.3 (80.0-98.0) fL MCH 31.2 (27.0-33.0) pg MCHC 33.8 (31.0-35.0) g/dl RDW 12.5 (11.0-16.0) % Plt Count 314 (160-400) X10*3/uL MPV 9.5 (9.4-12.3) fL Immature Gran % (Auto) 0.2 (0.0-0.4) % Neut % (Auto) 72.4 (45-73) % Lymph % (Auto) 19.1 L (20-40) % [place] % (Auto) 7.8 (2-11) % Eos % (Auto) 0.3 (0-4) % Baso % (Auto) 0.2 (0-2) % Lymph # (Auto) 1.9 (1.2-4.9) X10*3/uL [place] # (Auto) 0.8 (0.1-1.2) X10*3/uL Eos # (Auto) 0.0 (0.0-0.4) X10*3/uL Baso # (Auto) 0.0 (0.0-0.2) X10*3/uL Abs Immat Gran (auto) 0.02 (0.00-0.03) X10*3/uL Absolute Neuts (auto) 7.3 (2.0-8.3) x10*3/uL Absolute Nucleated RBC 0.000 (0.0-0.012) X10*3/uL Nucleated RBC % (auto) 0.0 (0.0-0.2) /100WBC Sodium 140 (135-145) mmol/L Potassium 4.1 (3.3-5.1) mmol/L Chloride 109 H (96-108) mmol/L Carbon Dioxide 21 L (22-29) mmol/L Anion Gap 14 (12-20) BUN 12 (9-16) mg/dL Creatinine 0.72 (0.5-1.4) mg/dL Estim Creat Clear Calc 55.4 Estimated GFR > 60 Random Glucose 96 (60-115) mg/dL Calcium 9.2 (8.4-10.2) mg/dL Total Bilirubin 0.8 (0.0-1.0) mg/dL Direct Bilirubin 0.3 (0.0-0.5) mg/dL AST 24 (5-31) U/L ALT 10 (0-31) U/L Alkaline Phosphatase 101 (39-117) U/L Troponin I High Sens 3.3 (<3.5-17.0) ng/L B-Natriuretic Peptide 156 H (<100) pg/mL Total Protein 6.9 (6.5-8.0) g/dL Albumin 3.8 (3.5-5.0) g/dL Lipase 6 L (8-78) U/L Influenza Type A (PCR) NEGATIVE (Negative) Influenza Type B (PCR) NEGATIVE (Negative) RSV RNA Qual (PCR) NEGATIVE (Negative) SARS-CoV-2 RNA (RT-PCR) NEGATIVE (Negative) Independent Interpretation I performed an independent interpretation of an: Plain X-Ray and CT Scan (Head and neck: No acute pathology.) Radiology Impression Discussion of test interpretation with radiology: I have reviewed the radiologist's reading. Discharge Plan Discharge Clinical Impression: Accident due to mechanical fall without injury Patient Disposition: Still a Patient Prescriptions: No Action mirtazapine 7.5 mg tablet 7.5 mg PO BEDTIME 30 Days Qty: 30 3RF cefuroxime axetil 250 mg tablet 250 mg PO Q12H Qty: 10 0RF donepezil 5 mg tablet 5 mg PO DAILY 90 Days Qty: 90 1RF Print Language: Peruvian
[2024-04-05 18:16] VITALS: BP 125/65; PULSE 80; RESP 14; O2SAT 98
[2024-04-05 18:54] LABS: MANUAL DIFF FLAG NO
[2024-04-05 19:10] LABS: Basophils Percent Auto 0.2 % (0-2); Eosinophils Percent Auto 0.3 % (0-4); Hematocrit 39.7 % (37.0-47.0); Hemoglobin 13.4 g/dl (12.0-16.0); Imm Gran Abs Auto 0.02 X10*3/uL (0.00-0.03); Imm Gran Pct Auto 0.2 % (0.0-0.4); Lymphocytes Absolute Auto 1.9 X10*3/uL (1.2-4.9); Lymphocytes Percent Auto 19.1 % (20-40); Mean Corpuscular HGB Conc 33.8 g/dl (31.0-35.0); Mean Corpuscular Hemoglobin 31.2 pg (27.0-33.0); Mean Corpuscular Volume 92.3 fL (80.0-98.0); Mean Platelet Volume 9.5 fL (9.4-12.3); Monocytes Absolute Auto 0.8 X10*3/uL (0.1-1.2); Monocytes Percent Auto 7.8 % (2-11); Neutrophils Absolute Auto 7.3 x10*3/uL (2.0-8.3); Neutrophils Percent Auto 72.4 % (45-73); Platelet Count 314 X10*3/uL (160-400); Red Cell Distribution Width 12.5 % (11.0-16.0)
[2024-04-05 19:20] LABS: Alanine Aminotransferase 10 U/L (0-31); Albumin Level 3.8 g/dL (3.5-5.0); Alkaline Phosphatase 101 U/L (39-117); Anion Gap 14 (12-20); Aspartate Amino Transferase 24 U/L (5-31); Bilirubin Direct 0.3 mg/dL (0.0-0.5); Bilirubin Total 0.8 mg/dL (0.0-1.0); Blood Urea Nitrogen 12 mg/dL (9-16); Calcium 9.2 mg/dL (8.4-10.2); Carbon Dioxide 21 mmol/L (22-29); Chloride 109 mmol/L (96-108); Creatinine Clr Calc Pharmacy 55.4; Estimated Glomerular Filt Rate > 60; Glucose Random 96 mg/dL (60-115); Lipase 6 U/L (8-78); Potassium 4.1 mmol/L (3.3-5.1); Sodium 140 mmol/L (135-145); Total Protein 6.9 g/dL (6.5-8.0)
--- NOTE | 2024-04-05 19:22 | PC.NURSE ---
PT comes from home where EMS reports 24 hour care, it is unclear of home situation. 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 Pt and caretakers did not want her to come, [employer] completed. Pt was collared on arrival, pt reports hip/wrist/ceron pain, but then states she has no pain. Pt has hisotry of multiple falls, and recent UTI, Pt placed back on PO antibiotics at this time. Pt is not oriented, but continues to repeat that she wants to go home. Awaiting further orders at this time, c-collar has been removed at this time, hygiene care provided, purewic in place. no IV placed per MD request at this time.
[2024-04-05 19:23] LABS: B Type Natriuretic Peptide 156 pg/mL (<100)
[2024-04-05 19:27] LABS: Troponin-I High Sensitivity 3.3 ng/L (<3.5-17.0)
[2024-04-05 19:33] LABS: Influenza A PCR NEGATIVE (Negative); Influenza B PCR NEGATIVE (Negative); Resp Syncy Virus RNA Qual PCR NEGATIVE (Negative); SARS COV2 PCR INHOUSE NEGATIVE (Negative)
[2024-04-05] MEDS: Doxycycline Monohydrate 100 MG CAPSULE PO (20:28)
--- NOTE | 2024-04-05 20:47 | MHC.EDTECH ---
blood cultures ordered @ 1845 and not completed by previous tech and RN, blood cultures late 2hours and will be completed by this tech
--- NOTE | 2024-04-05 20:54 | PC.NURSE ---
Dr. Banda ordered blood cultures at 20:46. This RN informed MD that patient was medicated with Doxycycline 100 mg PO at 20:26. Per , OK to draw blood cultures after administration of oral antibiotic.
[2024-04-06] VITALS (7 sets, daily range): BP systolic 92–138; BP diastolic 50–82; PULSE 78–93; RESP 12–20; TEMP 36.6–37.1; O2SAT 93–99
--- NOTE | 2024-04-06 02:48 | MHC.EDTECH ---
patient having pain. Nurse advised.
--- NOTE | 2024-04-06 04:23 | MHC.EDTECH ---
Pt was asking for helping when I atempt to roll her to her side for bedpan or attempted to get her up for bedside comode, pt seems unsteady & doesnt allow me to assist her. due to the high fall risk pt place back in bed. Rn was notifed
--- NOTE | 2024-04-06 05:12 | PC.NURSE ---
Patient is awake, alert, orientated to self only, no apparent distress noted. VSS. Purewick in place. Patient offers no complaint at present, call dietrich in patient's reach.
--- NOTE | 2024-04-06 07:23 | PC.NURSE ---
Care of Pt assumed at change of shift. Pt currently awake and resting in bed. Call returned to Rebecca Willie (Aunt and primary caregiver) who called during change of shift for an update. Review of care and plan given. Rebecca reports she will be coming to ED today to visit Pt. This RN inquires about Pt home medications. Rebecca reports Pt only take one medication at home however she cannot recall the name at this moment. She will bring medication with her when she visits.
--- NOTE | 2024-04-06 08:59 | PHA.MEDREC ---
Pharmacy Consult ? Medication Reconciliation Pharmacy has completed the medication reconciliation. Utilized medical record and pharmacy claims. Patient was prescribed a 10 day supply of cefuroxime 250 mg Q12H on 03/30/24, not sure where patient is with this treatment.
[2024-04-06] MEDS: Doxycycline Monohydrate 100 MG CAPSULE PO (10:57)
--- NOTE | 2024-04-06 11:03 | PC.NURSE ---
pt medicated per MAR- pt offers no complaints at this time
--- NOTE | 2024-04-06 12:43 | PC.NURSE ---
report given to Gabby Ching RN
--- NOTE | 2024-04-06 13:01 | MHC.CM.PN ---
Addendum entered by Rin Garcia 04/06/24 15:09: SON WOULD LIKE PT TO RETURN HOME WITH CAREGIVER. SON REQUESTS [facility] FOR HOME SERVICES AND FIRST CHOICE [facility]. REFERRAL SENT. PROVIDER AND RN UPDATED ON DC. CAREGIVER WILL TRANSPORT VIA PRIVATE VEHICLE. Original Note: CM RECEIVED ED CONSULT. CM MET WITH PT AT BEDSIDE. PT NOT ABLE TO PROVIDE MUCH INFORMATION AND GIVES PERMISSION FOR CM TO SPEAK WITH SON. CM SPOKE WITH SON/HCP SARAY WHO STATES PT HAS 24/7 CAREGIVER (FAMILY FRIEND). PT DOES NOT USE ANY DEVICES/DME FOR MOBILITY. +HCP ON FILE . PCP LYUBOV ESPARZA DP: SON WILL CONTACT CAREGIVER TO SEE IF SHE WILL BE AVAILABLE TO STAY WITH PT TONIGHT ( PT WAS PLANNING TO STAY FOR P.T. EVAL IN AM) SON WOULD LIKE MOTHER TO RETURN HOME IF POSSIBLE. CM WILL SPEAK WITH SON IN AN HOUR OR SO TO DETERMINE DISPO.
--- NOTE | 2024-04-06 13:46 | PC.NURSE ---
Patient transferred over from main ED, found to be incontinent of stool and urine, cleaned up and changed in hospital [facility], now sitting quietly eating her lunch.
--- NOTE | 2024-04-06 17:06 | PC.NURSE ---
Addendum entered by Savanna Cagle RN 04/06/24 17:14: stock cutter on their way, should be here shortly to sheepskin pickler patient. Original Note: Patient supposed to be discharged via private vehicle w/ famiyl @ 1500 today. Family has yet to arrive. Called son, Marcial, confirming patient is to be picked up this evening, Marcial unsure where Domenica (ride home) is, will call back to confirm patient's ride home. heating repair technician ebony made aware
== END 2024-04-06 17:38 | disposition home or self-care (01) ==
PROVIDERS: Emergency Provider Emergency Medicine
DX: R29.6 Repeated falls (principal); M25.531 Pain in right wrist; M25.551 Pain in right hip; Z03.818 Encounter for observation for suspected exposure to other biological agents ruled out; E78.5 Hyperlipidemia, unspecified; E03.9 Hypothyroidism, unspecified; F17.210 Nicotine dependence, cigarettes, uncomplicated
CPT/HCPCS: 0241U; 36415; 70450; 71045; 72125; 73110; 73502; 80048; 80076; 81001; 83690; 83880; 84484; 85025; 87040; 87086; 93005; 99285

== ENCOUNTER → 2024-04-05 17:41 | Outpatient (BNV) | payer MEDICARE, SELFPAY | PROVIDERS: Emergency Provider Emergency Medicine; Visit Provider Radiology Diagnostic Radiology | DX: S00.93XA Contusion of unspecified part of head, initial encounter (principal); W19.XXXA Unspecified fall, initial encounter; M25.551 Pain in right hip; J18.9 Pneumonia, unspecified organism; M25.531 Pain in right wrist | CPT/HCPCS: 70450; 71045; 72125; 73110; 73502 ==

== ENCOUNTER → 2024-04-05 17:41 | Outpatient (BNV) | payer MEDICARE, SELFPAY | PROVIDERS: Emergency Provider Emergency Medicine; Visit Provider Internal Medicine | DX: R94.31 Abnormal electrocardiogram [ECG] [EKG] (principal); W19.XXXA Unspecified fall, initial encounter | CPT/HCPCS: 93010 ==

== ENCOUNTER 2024-04-07 12:52 | Outpatient (REF) | payer MEDICARE, SELFPAY ==
--- OUTSIDE RECORDS SUMMARY | 2024-04-08 15:38 | XMS_ITS ---
Author Organization [facility] [place] Address Unknown Allergies, Adverse Reactions, Alerts Substance Reaction Status Noted Date Resolved Date Sulfa Antibiotics active 12/30/2022 OxyBUTYnin active 12/30/2022 levoFLOXacin active 12/30/2022 Docusate active 12/30/2022 Codeine active 12/30/2022 Azithromycin active 12/30/2022 Problems Problem Status Start Date End Date UNSPECIFIED DISPLACED FRACTU RE OF SURGICAL NECK OF RIGHT HUMERUS, SUBSEQUENT ENCOUNTER FOR FRACTURE WITH ROUTINE HEALING (Primary) (S42.211D - ICD-10-CM) ACTIVE 12/30/2022 UNSPECIFIED FALL, SUBSEQUENT ENCOUNTER (W19.XXXD - ICD-10-CM) ACTIVE 12/30/2022 URINARY TRACT INFECTION, SIT E NOT SPECIFIED (N39.0 - ICD-10-CM) ACTIVE 12/30/2022 RHABDOMYOLYSIS (M62.82 - ICD-10-CM) ACTIVE 12/30 UNSPECIFIED DEMENTIA, UNSPEC IFIED SEVERITY, WITHOUT BEHAVIORAL DISTURBANCE, PSYCHOTIC DISTURBANCE, MOOD DISTURBANCE, AND ANXIETY (F03.90 - ICD-10-CM) ACTIVE 01/02/2023 OTHER SPECIFIED SEPSIS (A41.89 - ICD-10-CM) ACTIVE 12/30/2022 OTHER SPONDYLOSIS, CERVICAL REGION (M47.892 - ICD-10-C M) ACTIVE 12/30/2022 BILATERAL PRIMARY OSTEOARTHR ITIS OF HIP (M16.0 - ICD-10-CM) ACTIVE 12/30/2022 GENERALIZED ANXIETY DISORDER (F41.1 - ICD-10-CM) ACTIV E 12/30/2022 HYPOTHYROIDISM, UNSPECIFIED (E03.9 - ICD-10-CM) ACTIVE 12/30/2022 HYPERLIPIDEMIA, UNSPECIFIED (E78.5 - ICD-10-CM) ACTIVE 12/30/2022 Encounters Encounter Performer Performer Role Encounter Diagnoses Location Date Discharge - Discharged to home or self care - *Home Care Agency To Be Determined - Private home/apt. with home health services [facility] [place] 12/30/2022 02:34 pm EST - 01/30/2023 03:33 pm EST Immunizations Vaccine Date TB 1 Step Mantoux (PPD) 01/19/2023 09:35 pm EST TB 1 Step Mantoux (PPD) 01/10/2023 12:00 am EST TB 1 Step Mantoux (PPD) Pneumovax Dose 3 -if indicated 12:00 am EDT COVID-19 Vaccine Dose 1 08/13/2020 12:00 am EDT COVID-19 Vaccine Dose 2 09/03/2020 12:00 am EDT Flu Vaccine Prior To Admission (historic al only) Social History
== END 2024-04-07 12:53 | disposition home or self-care (01) ==
LOC: HO.HOSX 12:52
PROVIDERS: Visit Provider Physician Assistant
DX: Z13.89 Encounter for screening for other disorder (principal)

== ENCOUNTER 2024-04-15 15:41 | Outpatient (AMB) | payer MEDICARE, SELFPAY ==
--- NOTE | 2024-04-15 15:41 | MHC.PC.OV ---
Intake Visit Reasons: ED f/u [facility] [place] 03/30 [id number] Lens Coating Technician Required: No Punchboard Filling Machine Operator: Present Accompanied by: HANDS AND DIAL INSPECTOR Allergies azithromycin Allergy (Unknown, Verified 04/15/24 16:14) Unknown codeine Allergy (Unknown, Verified 04/15/24 16:14) Unknown docusate [From Colace] Allergy (Unknown, Verified 04/15/24 16:14) red rash, hand swelling latex [LATEX] Allergy (Unknown, Verified 04/15/24 16:14) ITCHY levofloxacin [Levaquin] Allergy (Unknown, Verified 04/15/24 16:14) Unknown oxybutynin Allergy (Unknown, Verified 04/15/24 16:14) red rash,hand swelling Sulfa (Sulfonamide Antibiotics) [SULFA (SULFONAMIDE ANTIBIOTICS)] Allergy (Unknown, Verified 04/15/24 16:14) RASH, Hives, hives Medication List - Last Reconciled 04/15/24 by LINDSAY Rendon donepezil 5 mg PO DAILY 90 days mirtazapine 7.5 mg PO BEDTIME 30 days Tobacco use date assessed: 04/15/24 Dental Screening Dental Screen Date: 04/15/24 Did you have a dental visit in the last 12 months?: No Did you have a dental problem in the last 6 months where you did not have access to dental care?: No Was dental information given to patient?: No HPI ED f/u [facility] [place] 03/30 UTI/[phone] HPI Details This is a medically necessary visit as the patient would typically be seen in the office, however, the patient is unable to come in the office so the visit was converted to an audiovisual, telephone visit format with patient's consent and request. Patient understands that this visit was in place of an in person visit and is aware of the risks of communicating via phone/computer and verbally consents. The patient is an 83-year-old female with significant past medical history of dementia, hypothyroidism, general anxiety disorder, hyperlipidemia, Patient visits is being done through telehealth per request Spoke with patient and HANDS AND DIAL INSPECTOR, reported that the patient received PT yesterday and that they are coming 2 times a week PT reports that the patient is improving with physical therapy and it would be beneficial if she could have it 3 times a week Reports that the patient is unsteady on her feet. PT we will be able to evaluate and treat the patient as they see fit. Getting the service 3 times a week could significantly improved the patient condition. Also discussed with the patient HANDS AND DIAL INSPECTOR to monitor her blood pressure because this was on the lower side while the patient was in the hospital. Reminded HANDS AND DIAL INSPECTOR that the patient also needs to follow up with Orthopedics due to her right humeral head fracture. Keep arm in sling when in a dependent position. The patient denies chest pain, shortness of breath, heart palpitation or dizziness PFSH Medical History HLD (hyperlipidemia) TRAMAINE (generalized anxiety disorder) Hypothyroid Surgical History History of cystoscopy History of tonsillectomy History of cataract surgery History of section Family History Father Lung cancer Mother Hypertension MRSA infection Family history of thyroid problem Social History Household Members: None Housing: House Do you presently have visiting nurse or other home services: No Alcohol intake: never Patient Tobacco Use Status: Current everyday Tobacco user Tobacco use type: Cigarette Cigarette Packs Per Day: 0.5 Cigarettes Per Day: 10 e-Cigarette/Vaping Use: Never Used Second Hand Smoke Exposure: Yes service: No Current occupational status: retired Cognitive needs: No Hearing needs: No Vision needs: No Questionnaire PHQ-9 Over the last 2 weeks, how often have you been bothered by any of the following problems? 1. Little interest or pleasure in doing things: not at all 2. Feeling down, depressed, or hopeless: not at all 3. Trouble falling or staying asleep, or sleeping too much: not at all 4. Feeling tired or having little energy: not at all 5. Poor appetite or overeating: not at all 6. Feeling bad about yourself - or that you are a failure or have let yourself or your family down: not at all 7. Trouble concentrating on things, such as reading the newspaper or watching television: not at all 8. Moving or speaking so slowly that other people could have noticed. Or the opposite - being so fidgety or restless that you have been moving around a lot more than usual: not at all 9. Thoughts that you would be better off or of hurting yourself in some way: not at all Total score: 0 Depression Screening Interpretation: Negative Depression Screening Done: Yes 79612 - PHQ-9 Billing: Yes Source: Developed by Drs. Chava Rosenthal, Elisha Gallego, Tristan Lozano and colleagues, with an educational alysia from [employer]. Thrive Questionnaire Date Thrive assessed: 04/15/24 I am a: Patient What is your living situation today?: I have a steady place to live Within the past 12 months, did the food you bought not last and you didn't have the money to get more?: Never true Within the past 12 months, did you worry whether your food would run out before you got money to buy more?: Never true Do you have trouble paying for medicines?: No Do you have trouble getting transportation to medical appointments?: No Do you have trouble paying your heating and electricity bill?: No Do you have trouble taking care of your child, family member or friend?: No Do you have trouble with day-to-day activities such as bathing, preparing meals, shopping, managing finances, etc.?: No Are you currently unemployed and looking for a job?: No Are you interested in more education?: No Please select the resources that you would like help with: None Currently or been in a relationship where the following occur: No concerns reported THRIVE Score: 0 AUDIT C Alcohol Use Questionnaire (AUDIT-C) 2. How many drinks containing alcohol do you have on a typical day when you are drinking?: 1 or 2 3. How often do you have six or more drinks on one occasion?: Never Total Score: 0 TRAMAINE-7 AMB Questionnaire TRAMAINE-7 Date TRAMAINE - 7 assessed: 04/15/24 Feeling nervous, anxious, or on edge: 0 = Not at all Not being able to stop or control worryin = Not at all Worrying too much about different things: 0 = Not at all Trouble relaxin = Not at all Being so restless that it is hard to sit still: 0 = Not at all Becoming easily annoyed or irritable: 0 = Not at all Feeling afraid as if something awful might happen: 0 = Not at all Total TRAMAINE-7 score (0-4 normal; 5-9 mild; 10-14 moderate; 15-21 severe): 0 Source: Developed by Drs. Chava Rosenthal, Elisha Gallego, Tristan Lozano and colleagues, with an educational alysia from [employer]. TRAMAINE-7 Assessment Billing TRAMAINE-7 Assessment Tool: TRAMAINE-7 Assessment 07814 Review of Systems Const Denies headache(s) Eyes Denies loss of vision ENT Denies vertigo, Denies dizziness, Denies headache(s) and Denies sore throat Card Denies chest pain, Denies leg edema and Denies lightheadedness Resp Denies cough, Denies hemoptysis and Denies wheezing GI Denies abdominal pain, Denies melena, Denies constipation, Denies diarrhea and Denies vomiting Denies urinary frequency, Denies dysuria and Denies urinary urgency Musc Denies arthralgias, Denies joint swelling, Denies numbness and Denies tingling Neuro Denies behavioral changes, Denies vertigo, Denies dizziness, Denies headache(s), Denies loss of vision, Denies memory loss, Denies numbness and Denies tingling Psych Denies anxiety, Denies behavioral changes, Denies depression, Denies memory loss and Denies panic attacks Mehul/Lymph Denies easy bleeding and Denies easy bruising Aller/Immun Denies wheezing Physical exam (Primary Care) Tobacco/Smoking Status: Tobacco use Status Tobacco use date assessed 04/15/24 04/15/24 15:44 Patient Tobacco Use Status Current everyday Tobacco 04/15/24 15:44 Tobacco use type Cigarette 04/15/24 15:44 e-Cigarette/Vaping Use Never Used 04/15/24 15:44 PHQ-9: PHQ-9 Score PHQ-9: Total score 0 04/20/24 01:01 Depression Screening Interpretation: Negative Thrive Assessment: Date of Thrive Assessment Date Thrive assessed 04/15/24 04/15/24 15:44 Currently or been in a relationship where the following occur: No concerns reported Const Other: Telemedicine visit with real time audio video Received verbal consent given by patient for today's visit via telemedicine Physical examination is not performed as visit / consultation today is done over videoconference - Telehealth visit All physical findings indicated here, if present, are as per patient's and / or caregivers / proxy's report and visual inspection over videoconference, if appropriate or applicable Telehealth Telehealth Telehealth Platform: Telephone Location of provider rendering services: practice address Location of patient: address on file Patient Identification confirmed using: Name, : Yes Telehealth method: voice only Patient verbally consented to treatment: Yes Patient verbally consented to billing insurance company: Yes Patient informed of any privacy concerns related to visit: Yes Minutes spent on Phone/Video with Pt.: 22 Coding Level of Care Code Tele Est Pt Level 3 (91714) Diagnoses Fall, subsequent encounter W19.XXXD Encounter type: subsequent encounter Other closed nondisplaced fracture of proximal end of right humerus with routine healing, subsequent encounter S42.294D Encounter type: subsequent encounter Fracture alignment: nondisplaced Fracture healing: with routine healing Fracture morphology: other fracture Humerus Location: proximal Moderate dementia with anxiety, unspecified dementia type F03.B4 Dementia type: unspecified type Dementia severity: moderate Dementia behavioral or psychological symptom: with anxiety Urinary tract infection without hematuria, site unspecified N39.0 Urinary tract infection type: site unspecified Hematuria presence: without hematuria Traumatic rhabdomyolysis, subsequent encounter T79.6XXD Rhabdomyolysis type: traumatic Encounter type: subsequent encounter Additional Codes PHQ-9 - 87580 - PHQ-9 Billing: Yes ([id number]) TRAMAINE-7 Assessment Billing - TRAMAINE-7 Assessment Tool: TRAMAINE-7 Assessment 54526 ([id number]) Time Spent (min) 34 Assessment & Plan Assessment & Plan (1) Fall: Code(s): W19.XXXA - Unspecified fall, initial encounter Category: Medical Qualifiers: Encounter type: subsequent encounter Qualified Code(s): W19.XXXD - Unspecified fall, subsequent encounter Plan: Patient status post unwitnessed fall. She was brought to the ED and was found to have a UTI, a right humeral head fracture and she was in rhabdomyolysis. The patient was treated with antibiotics and fluids with significant improvement The patient is getting PT 2 days a week with improvement. However the patient continues to be unsteady on her feet and would significantly benefit from an extra day of PT to work on her gait/balance (2) Closed right humeral fracture: Code(s): S42.301A - Unspecified fracture of shaft of humerus, right arm, initial encounter for closed fracture Category: Medical Qualifiers: Encounter type: subsequent encounter Fracture alignment: nondisplaced Fracture healing: with routine healing Fracture morphology: other fracture Humerus Location: proximal Qualified Code(s): S42.294D - Other nondisplaced fracture of upper end of right humerus, subsequent encounter for fracture with routine healing Plan: The patient was given a sling and was recommended that she follow up with Orthopedics outpatient (3) Dementia: Code(s): F03.90 - Unspecified dementia, unspecified severity, without behavioral disturbance, psychotic disturbance, mood disturbance, and anxiety Category: Medical Qualifiers: Dementia type: unspecified type Dementia severity: moderate Dementia behavioral or psychological symptom: with anxiety Qualified Code(s): F03.B4 - Unspecified dementia, moderate, with anxiety Plan: Continue on donepezil 5 mg daily mirtazapine 7.5 mg at bedtime (4) Urinary tract infection: Code(s): N39.0 - Urinary tract infection, site not specified Category: Medical Qualifiers: Urinary tract infection type: site unspecified Hematuria presence: without hematuria Qualified Code(s): N39.0 - Urinary tract infection, site not specified Plan: The patient was treated with Ceftin and was sent home with treatment for 3 more days (5) Rhabdomyolysis: Code(s): M62.82 - Rhabdomyolysis Category: Medical Qualifiers: Rhabdomyolysis type: traumatic Encounter type: subsequent encounter Qualified Code(s): T79.6XXD - Traumatic ischemia of muscle, subsequent encounter Plan: Treated with IV fluids, no kidney injury and CPK trended down
== END 2024-04-15 16:51 | disposition home or self-care (01) ==
LOC: HO.HMCH 15:41
PROVIDERS: PCP Physician Assistant
DX: N39.0 Urinary tract infection, site not specified (principal); F03.B4 Unspecified dementia, moderate, with anxiety; W19.XXXD Unspecified fall, subsequent encounter; S42.294D Other nondisplaced fracture of upper end of right humerus, subsequent encounter for fracture with routine healing; T79.6XXD Traumatic ischemia of muscle, subsequent encounter

== ENCOUNTER → 2024-04-15 15:41 | Outpatient (BNVA) | payer MEDICARE, SELFPAY | PROVIDERS: PCP Physician Assistant | DX: S42.294D Other nondisplaced fracture of upper end of right humerus, subsequent encounter for fracture with routine healing (principal); T79.6XXD Traumatic ischemia of muscle, subsequent encounter; W19.XXXD Unspecified fall, subsequent encounter; F03.B4 Unspecified dementia, moderate, with anxiety; N39.0 Urinary tract infection, site not specified | CPT/HCPCS: 96127 ==

== ENCOUNTER 2024-04-22 16:38 | Outpatient (REF) | payer MEDICARE, SELFPAY ==
[2024-04-22 16:46] LABS: Appearance Urine Turbid; Color Urine Yellow; Glucose Urine UA Negative (Negative); Leukocyte Esterase Urine Large (3+) (Negative); Nitrite Urine Positive (Negative); PH 8.5 (5.0-9.0); Specific Gravity - Urine 1.015 (1.005-1.025); UMIC TRIGGER UACC YES; Urine Blood Small (1+) (Negative); Urine Ketones Negative (Negative); Urine Protein 30 (1+) mg/dL (Neg-Trace)
[2024-04-22 18:13] LABS: RBC Urine 0-2 /HPF (0-2); UACC Culture Trigger YES; WBC Urine >50 /HPF (0-5)
[2024-04-22 18:14] LABS: Bacteria Urine 4+ (None Seen)
--- OUTSIDE RECORDS SUMMARY | 2024-04-22 19:26 | XMS_ITS ---
Author Organization [facility] [place] Care Team Providers Care Mattress Weaver Name Role Phone Boogie Gonzalez Unavailable Unavailable Venice Murrell Unavailable Unavailable Allergies and adverse reactions Code CodeSystem Substance Reaction Severity StartDate Concern Status 731601353 SNOMED CT Sulfa Antibiotics Unknown 12/30/2022 active 21043 RXNORM OxyBUTYnin Unknown 12/30/2022 active 69652 RXNORM levoFLOXacin Unknown 12/30/2022 active 55806 RXNORM Docusate Unknown 12/30/2022 active 2670 RXNORM Codeine Unknown 12/30/2022 active 19357 RXNORM Azithromycin Unknown 12/30/2022 active Care Team Name Role Address Phone Organization Jhonatan Gonzalez Attending Physician [address], [place], [address], [facility] (Office): : : [facility] [place] 12/30/2022 - 01/30/2023 Venice Murrell Attending Physician [address] [place] [address], [place], [address], [place] (Office): : : [facility] [place] 12/30/2022 - 01/30/2023 Immunizations Immunization Status Vaccine Details Vaccine Code CodeSystem Date Notes TB 1 Step Mantoux (PPD) completed tuberculin skin test; purified protein derivative solution, intradermal lotNumber: [id number] expiry: 04/11/2024 Mfg: [employer] Given 0.1 ml Right Forearm intradermally 96 CVX created date: 01/20/2023 consent date: 01/19/2023 administere d date: 01/20/2023 2nd step TB 1 Step Mantoux (PPD) completed tuberculin skin test; purified protein derivative solution, intradermal Given 0.1 Right Forearm intradermally 96 CVX created date: 01/10/2023 consent date: 01/10/2023 administere d date: 01/10/2023 TB 1 Step Mantoux (PPD) cancelled tuberculin skin test; purified protein derivative solution, intradermal 96 CVX created date: 01/01/2023 consent date: 01/01/2023 Pneumovax Dose 3 -if indicated completed pneumococcal polysaccharide vaccine, 23 valent 33 CVX created date: 01/01/2023 administere d date: 09/02/2016 COVID-19 Vaccine Dose 1 completed unknown vaccine or immune globulin Mfg: pfizer 999 CVX created date: 01/01/2023 administere d date: 08/13/2020 COVID-19 Vaccine Dose 2 completed unknown vaccine or immune globulin Mfg: pfizer 999 CVX created date: 01/01/2023 administere d date: 09/03/2020 Flu Vaccine Prior To Admission (historical only) cancelled unknown vaccine or immune globulin 999 CVX created date: 01/17/2023 consent date: 01/17/2023 Mental Status Section Date Assessment Total Score Description 01/30/2023 BIMS 03 severe cognitiv e impairment CAM 0 No delirium ind icated 01/02/2023 BIMS 04 severe cognitiv e impairment CAM 0 No delirium ind icated Problems Problem # Description Date of onset Resolved Date Code CodeSystem Concern Status 1 UNSPECIFIED DEMENTIA, UNSPECIFIED SEVERITY, WITHOUT BEHAVIORAL DISTURBANCE, PSYCHOTIC DISTURBANCE, MOOD DISTURBANCE, AND ANXIETY 01/02/[address] active 2 BILATERAL PRIMARY OSTEOARTHRITIS OF HIP 12/30/[address] active 3 GENERALIZED ANXIETY DISORDER 12/30/[address] active 4 HYPERLIPIDEMIA, UNSPECIFIED 12/30/[address] active 5 HYPOTHYROIDISM, UNSPECIFIED 12/30/[address] active 6 OTHER SPECIFIED SEPSIS 12/30/[address] active 7 OTHER SPONDYLOSIS, CERVICAL REGION 12/30/[address] active 8 RHABDOMYOLYSIS 12/30/[address] ac tive 9 UNSPECIFIED DISPLACED FRACTURE OF SURGICAL NECK OF RIGHT HUMERUS, SUBSEQUENT ENCOUNTER FOR FRACTURE WITH ROUTINE HEALING 12/30/[address] active 10 UNSPECIFIED FALL, SUBSEQUENT ENCOUNTER 12/30/[address] active 11 URINARY TRACT INFECTION, SITE NOT SPECIFIED 12/30/[address] active Reason for Referral No Reasons for Referral Entered Social History Social History Observation Description Start Date End Date Code Code System Current Smoking Status Tobacco smoking consumption unknown 941639987 SNOMED CT Sex Assigned At Female 1940 58455-4 [facility] Vital Signs Code Code System Vitals Name Values and Units Timing Information 65138-1 LOINC Pain Level Value=0.0 01/30/2023 9279-1 LOINC Respiratory Rate Value=20.0 Units=/m in 01/30/2023 8462-4 LOINC Blood Pressure-Diastolic Value=72 Un its=mmHg 01/30/2023 8480-6 LOINC Blood Pressure-Systolic Rwzxa=616 Un its=mmHg 01/30/2023 8867-4 LOINC Heart rate Value=76.0 Units=/min 50469-5 LOINC O2 % BldC Oximetry Value=95.0 Units= % 01/30/2023 8310-5 LOINC Body Temperature Value=98.2 Units=?? F 01/30/2023 82448-9 LOINC Weight Jjkya=709.8 Units=Lbs 03/2022 8302-2 LOINC Height Value=66.0 Units=Inches 12/31/2022
== END 2024-04-22 16:39 | disposition home or self-care (01) ==
LOC: HO.LNP 16:38
PROVIDERS: Visit Provider Internal Medicine
DX: R30.0 Dysuria (principal)
CPT/HCPCS: 81001; 87086; 87088; 87186

== ENCOUNTER 2024-04-24 09:30 | Emergency (ER) | payer MEDICARE, SELFPAY ==
[2024-04-24] VITALS (7 sets, daily range): BP systolic 99–181; BP diastolic 24–74; PULSE 59–100; RESP 14–18; TEMP 36.1–36.9; O2SAT 95–100; BMI 24.7
--- NOTE | ~2024-04-24 | XR_ITS ---
EXAMINATION: XR KNEE 1-2 VIEWS RIGHT HISTORY: fall, right knee pain COMPARISON: There are no prior studies available for comparison. FINDINGS: AP and lateral views of the right knee are submitted. The bones are osteopenic. There is no fracture or dislocation. The joint spaces are preserved. There is chondrocalcinosis. There is a small joint effusion. There are vascular calcifications. XR/XR knee RT 2V IMPRESSION: Small joint effusion. Osteopenia. No evidence of fracture of the right knee. Electronically signed by: Chava Rodriguez MD 04/24/2024 12:35 PM EDT
--- NOTE | ~2024-04-24 | XR_ITS ---
EXAMINATION: XR CHEST CLINICAL INFORMATION: fall COMPARISON: 04/05/2024. TECHNIQUE: Frontal view of the chest was obtained. FINDINGS: The cardiac, hilar, and mediastinal contours are normal. Aortic mural calcifications. The lungs are mildly hyperaerated, minimal linear atelectasis in the right costophrenic sulcus. Mild apical chronic pleural thickening on the right. Lungs otherwise clear bilaterally. No pneumothorax or effusion. There is an old right proximal humeral fracture, unchanged. There are degenerative changes in the spine and shoulder joints. No acute bony abnormality. No soft tissue abnormalities. XR/XR chest 1V IMPRESSION: 1. COPD. No active superimposed disease. 2. No acute bony abnormality. Electronically signed by: Chalo Mclean MD 04/24/2024 12:39 PM EDT
--- NOTE | ~2024-04-24 | XR_ITS ---
EXAMINATION: XR HIP 1 VIEW RIGHT WITH PELVIS HISTORY: fall, right hip pain COMPARISON: Comparison is made with the prior examination dated 04/05/2024. FINDINGS: A single AP view of the pelvis and two views of the right hip are submitted. The bones are osteopenic. There is no fracture or dislocation. Again seen is mild joint space narrowing. There are vascular calcifications. XR/XR hip RT w PEL1V IMPRESSION: Osteopenia. Mild joint space narrowing. No evidence of fracture of the right hip. Electronically signed by: Chava Rodriguez MD 04/24/2024 12:34 PM EDT
--- NOTE | ~2024-04-24 | CT_ITS ---
EXAMINATION: CT HEAD WITHOUT CONTRAST CLINICAL INFORMATION: Fall, head injury. COMPARISON: None available. TECHNIQUE: Contiguous axial imaging was performed from the skull base to vertex without intravenous administration of contrast. This CT examination was performed using dose optimization techniques as appropriate, variously including the following: *Automated exposure control *Adjustment of mA and/or kV according to patient size (this includes techniques or standardized protocols for targeted exams where dose is matched to indication/reason for exam; i.e. extremities or head) *Use of iterative reconstruction technique FINDINGS: There is no evidence of intracranial hemorrhage or extra-axial fluid collection. There is no mass effect, or edema. No CT evidence of acute territorial infarct. Ventricles, sulci, and cisterns are mildly diffusely prominent in keeping with age-related cerebral and cerebellar volume loss. No hydrocephalus. No midline shift. Negative hyperdense MCA sign. Negative insular ribbon sign. There is an extra-axial 10 mm focus within the anterior cranial fossa, abutting the right interhemispheric fissure with peripheral calcifications. This is consistent with a stable meningioma. Patchy periventricular and deep white matter hypoattenuation is consistent with moderate small vessel ischemic changes. Normal pituitary. Mild atheromatous calcification of the bilateral carotid siphons and V4 segments vertebral arteries bilaterally. Globes and orbital contents image normally. There are bilateral lens replacements. No extracranial soft tissue abnormalities. The paranasal sinuses, mastoid air cells, and tympanic cavities are normally aerated. No suspicious bony abnormalities. There are no acute fractures evident. CT/CT head/brain wo IV con IMPRESSION: 1. No acute intracranial abnormality. No fracture. 2. 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 2. Stable white matter small vessel ischemic changes and age-related involutional changes. Electronically signed by: Chalo Mclean MD 04/24/2024 12:36 PM EDT
--- NOTE | 2024-04-24 10:01 | ECG_ITS ---
Test Reason : WEAKNESS/ FALL Blood Pressure : */* mmHG Vent. Rate : 79 BPM Atrial Rate : 79 BPM P-R Int : 164 ms QRS Dur : 54 ms QT Int : 388 ms P-R-T Axes : 67 -26 41 degrees QTcB Int : 444 ms Normal sinus rhythm Low voltage QRS cannot exclude old Inferior infarct (cited on or before 05-Apr-2024) Abnormal ECG When compared with ECG of 05-Apr-2024 18:12, No significant change was found Referred By: Generic ED Physician Electronically Signed By: CAMI LYONS
[2024-04-24 10:39] LABS: MANUAL DIFF FLAG NO
[2024-04-24 10:50] LABS: Appearance Urine Turbid; Color Urine Yellow; Glucose Urine UA Negative (Negative); Leukocyte Esterase Urine Large (3+) (Negative); Nitrite Urine Negative (Negative); UMIC TRIGGER UACC YES; Urine Blood Moderate (2+) (Negative); Urine Ketones Negative (Negative); Urine Protein 100 (2+) mg/dL (Neg-Trace)
[2024-04-24 10:54] LABS: Basophils Percent Auto 0.4 % (0-2); Eosinophils Absolute Auto 0.1 X10*3/uL (0.0-0.4); Eosinophils Percent Auto 1.6 % (0-4); Hematocrit 39.8 % (37.0-47.0); Imm Gran Abs Auto 0.02 X10*3/uL (0.00-0.03); Imm Gran Pct Auto 0.3 % (0.0-0.4); Lymphocytes Percent Auto 26.5 % (20-40); Mean Corpuscular HGB Conc 32.7 g/dl (31.0-35.0); Mean Corpuscular Volume 94.8 fL (80.0-98.0); Mean Platelet Volume 10.2 fL (9.4-12.3); Monocytes Absolute Auto 0.7 X10*3/uL (0.1-1.2); Monocytes Percent Auto 9.1 % (2-11); Neutrophils Absolute Auto 4.8 x10*3/uL (2.0-8.3); Neutrophils Percent Auto 62.1 % (45-73); Platelet Count 269 X10*3/uL (160-400); Red Cell Distribution Width 13.3 % (11.0-16.0); White Blood Count 7.7 X10*3/uL (4.8-10.8)
[2024-04-24 10:58] LABS: Anion Gap 14 (12-20); Blood Urea Nitrogen 13 mg/dL (9-16); Calcium 9.1 mg/dL (8.4-10.2); Carbon Dioxide 22 mmol/L (22-29); Chloride 110 mmol/L (96-108); Creatinine Clr Calc Pharmacy 48.4; Estimated Glomerular Filt Rate > 60; Glucose Random 80 mg/dL (60-115); Potassium 4.1 mmol/L (3.3-5.1); Sodium 142 mmol/L (135-145)
[2024-04-24 11:04] LABS: Troponin-I High Sensitivity 2.7 ng/L (<3.5-17.0)
[2024-04-24 11:12] LABS: Bacteria Urine None Seen (None Seen); RBC Urine >20 /HPF (0-2); Squamous Epithelial Cell Urine 0-2 /HPF (0-2); UACC Culture Trigger YES; WBC Urine >50 /HPF (0-5)
[2024-04-24 11:22] LABS: Influenza A PCR NEGATIVE (Negative); Influenza B PCR NEGATIVE (Negative); Resp Syncy Virus RNA Qual PCR NEGATIVE (Negative); SARS COV2 PCR INHOUSE NEGATIVE (Negative)
--- NOTE | 2024-04-24 11:37 | PC.NURSE ---
Spoke to daughter Rebecca who will visit later and expresses concerns for UTI, upper right leg pain and swelling and low bp. States SBP 90s for a few days, no BP meds at home. Aware of urine spec collected. On exam right upper leg ?mild swelling, no redness. Pt states pain to right groin region however pt is confused and unable to specify pain site
--- NOTE | 2024-04-24 11:57 | ED.GENADULT ---
HPI - General Adult General Chief complaint: General Medical Stated complaint: INCR WEAK,FREQ FALLS,RLE CELLULITIS PER EMS Time Seen by Provider: 04/24/24 11:45 Source: patient, family and EMS Mode of arrival: EMS Limitations: no limitations and altered mental status History of Present Illness ED Provider: DR. Banda HPI narrative: 83-year-old female with with unknown past medical history presented to the ED by EMS after being found on the floor, patient is unable to give history, history was obtained from the nurse who took to the daughter earlier ( I reached out to the daughter and left a voice message waiting for her response). Patient sustained a fall complaining of right knee /right hip pain. Related Data Previous Rx's ?Medication ?Instructions ?Recorded donepezil 5 mg tablet 5 mg PO DAILY 90 days #90 tabs 07/11/23 mirtazapine 7.5 mg tablet 7.5 mg PO BEDTIME 30 days #30 tabs 01/17/24 cefuroxime axetil 500 mg tablet 500 mg PO BID 10 days #20 tabs 04/24/24 Allergies Allergy/AdvReac Type Severity Reaction Status Date / Time azithromycin Allergy Unknown Unknown Verified 04/24/24 09:57 codeine Allergy Unknown Unknown Verified 04/24/24 09:57 docusate [From Colace] Allergy Unknown red rash, Verified 04/24/24 09:57 hand swelling latex [LATEX] Allergy Unknown ITCHY Verified 04/24/24 09:57 levofloxacin [Levaquin] Allergy Unknown Unknown Verified 04/24/24 09:57 oxybutynin Allergy Unknown red Verified 04/24/24 09:57 rash,hand swelling Sulfa (Sulfonamide Allergy Unknown RASH, Verified 04/24/24 09:57 Antibiotics) Hives, [SULFA (SULFONAMIDE hives ANTIBIOTICS)] Review of Systems Review of Systems: Yes Unobtainable due to mental status PMFSH Past Medical History Medical History HLD (hyperlipidemia) TRAMAINE (generalized anxiety disorder) Hypothyroid Surgical History History of cystoscopy History of tonsillectomy History of cataract surgery History of section Family History Family History Father Lung cancer Mother Hypertension MRSA infection Family history of thyroid problem Social History Social History Household Members: None Housing: House Do you presently have visiting nurse or other home services: No Alcohol intake: never Patient Tobacco Use Status: Current everyday Tobacco user Tobacco use type: Cigarette Cigarette Packs Per Day: 0.5 Cigarettes Per Day: 10 Smoked in Last 30 Days: Yes e-Cigarette/Vaping Use: Never Used Second Hand Smoke Exposure: Yes Use of substances other than those prescribed or required for medical reasons: No Advance Directives: No Advance Directives Information Provided: Yes service: No Current occupational status: retired Cognitive needs: No Hearing needs: No Vision needs: No Physical Exam ED Vital Signs: Vital Signs - 24 hr 04/24/24 09:37 04/24/24 09:53 04/24/24 10:46 Temperature 98.4 F 98.4 F Pulse Rate 80 80 59 Respiratory Rate 14 14 16 Blood Pressure 99/51 L 99/51 L 181/60 H Pulse Oximetry 97 97 100 Oxygen Delivery Method Room Air Room Air Room Air 04/24/24 11:35 Temperature Pulse Rate 88 Respiratory Rate 18 Blood Pressure 111/24 L Pulse Oximetry 98 Oxygen Delivery Method Room Air BMI result Body Mass Index 24.7 Vital signs have been reviewed and appear to be correct. Blood pressure elevated. Heart rate normal. Respiratory rate normal. Temperature normal. Oxygen saturation normal. Appearance: Alert. No acute distress. Head: Normal external exam. Normocephalic. Atraumatic. No Esparza signs noted. No raccoon eyes noted Eyes: PERRLA. EOMI. Conjunctiva and sclera normal. Eyelids normal. ENT: TM's Normal. Pharynx normal. Uvula midline. Moist mucous membranes. No trismus noted. No drooling noted. No muffled voice noted. Neck: Normal inspection. Neck supple. FROM. No adenopathy. Thyroid Normal. No meningeal signs. No neck mass noted. CVS: Normal heart rate and rhythm. Heart sound normal. No murmurs noted. Pulses normal throughout. Respiratory: No respiratory distress. Painless inspiration. Breath sounds normal. No wheezes/rales/rhonchi noted. Chest nontender. No accessory muscle usage noted or decreased air movement noted. Abdomen: Soft and nontender. Bowel sounds normal in all 4 quadrants. No distention noted. No organomegaly noted. No visible injury noted. Back: No CVA tenderness. Full range of motion noted. Skin: Skin warm and dry. Normal skin color. Normal skin turgor. No rashes/lesions/lacerations noted. Extremities: No lower extremity edema. Extremities exhibit normal range of motion. Extremities nontender. Neuro: Cranial nerve exam: II-XII are grossly intact No motor deficit. No sensory deficit. Reflexes normal. Course Reevaluation(s) Reevaluation #1: A family member is at bedside providing history, patient was frequent UTIs, patient did not have a complete fall was able to lower herself to the floor, no head injury neuro exam is unremarkable with normal head CT. Family declined rehab facility placement. Will discharge the patient home, history of recurrent UTI on oral Ceftin 500 mg b.i.d.,and encouraged to drink plenty of fluids. Time: 14:56 Reevaluation #2: unsteady gait with a walker, patient at high risk of fall will keep the patient under physician observation for PT eval and case management. Time: 15:19 Medications Administered Discontinued Medications Generic Name Dose Route Start Last Admin Trade Name Freq PRN Reason Stop Dose Admin Ceftriaxone Sodium 1 gm 04/24/24 11:53 04/24/24 12:48 Ceftriaxone Sodium 1 Gm Vial IVPUSH 04/24/24 11:54 1 gm ONCE ONE Administration Sodium Chloride 1,000 mls @ 999 mls/hr 04/24/24 11:53 04/24/24 13:53 Ns IV 04/24/24 12:53 Infused .Q1H1M ONE Infusion Medical Decision Making Differential Diagnosis Differential Diagnoses: The differential diagnosis associated with the presentation includes ( Dementia, intracranial bleed, electrolyte derangement, severe anemia UTI, right hip fracture right knee fracture.) Admission/Observation Consideration of admission/observation: Escalation of care including admission/observation considered Lab Data MDM Lab Attestation statement: I reviewed the patient's lab results. 04/24/24 10:29 04/24/24 10:28 Labs: Lab Results 04/24/24 04/24/24 04/24/24 Range/Units 10:27 10:28 10:29 WBC 7.7 (4.8-10.8) X10*3/uL RBC 4.20 (4.20-5.50) X10*6/uL Hgb 13.0 (12.0-16.0) g/dl Hct 39.8 (37.0-47.0) % MCV 94.8 (80.0-98.0) fL MCH 31.0 (27.0-33.0) pg MCHC 32.7 (31.0-35.0) g/dl RDW 13.3 (11.0-16.0) % Plt Count 269 (160-400) X10*3/uL MPV 10.2 (9.4-12.3) fL Immature Gran % (Auto) 0.3 (0.0-0.4) % Neut % (Auto) 62.1 (45-73) % Lymph % (Auto) 26.5 (20-40) % Mck[place] % (Auto) 9.1 (2-11) % Eos % (Auto) 1.6 (0-4) % Baso % (Auto) 0.4 (0-2) % Lymph # (Auto) 2.0 (1.2-4.9) X10*3/uL [place]ck[place] # (Auto) 0.7 (0.1-1.2) X10*3/uL Eos # (Auto) 0.1 (0.0-0.4) X10*3/uL Baso # (Auto) 0.0 (0.0-0.2) X10*3/uL Abs Immat Gran (auto) 0.02 (0.00-0.03) X10*3/uL Absolute Neuts (auto) 4.8 (2.0-8.3) x10*3/uL Absolute Nucleated RBC 0.000 (0.0-0.012) X10*3/uL Nucleated RBC % (auto) 0.0 (0.0-0.2) /100WBC Hold Purple Top SEE NOTE Sodium 142 (135-145) mmol/L Potassium 4.1 (3.3-5.1) mmol/L Chloride 110 H (96-108) mmol/L Carbon Dioxide 22 (22-29) mmol/L Anion Gap 14 (12-20) BUN 13 (9-16) mg/dL Creatinine 0.76 (0.5-1.4) mg/dL Estim Creat Clear Calc 48.4 Estimated GFR > 60 Random Glucose 80 (60-115) mg/dL Calcium 9.1 (8.4-10.2) mg/dL Troponin I High Sens 2.7 (<3.5-17.0) ng/L Urine Color Urine Appearance Urine pH (5.0-9.0) Ur Specific [place] (1.005-1.025) Urine Protein (Neg-Trace) mg/dL Urine Glucose (UA) (Negative) mg/dL Urine Ketones (Negative) mg/dL Urine Blood (Negative) Urine Nitrite (Negative) Ur Leukocyte Esterase (Negative) Urine RBC (0-2) /HPF Urine WBC (0-5) /HPF Ur Squamous Epith Cells (0-2) /HPF Urine Bacteria (None Seen) Hyaline Casts (0-2) /LPF Influenza Type A (PCR) NEGATIVE (Negative) Influenza Type B (PCR) NEGATIVE (Negative) RSV RNA Qual (PCR) NEGATIVE (Negative) SARS-CoV-2 RNA (RT-PCR) NEGATIVE (Negative) 04/24/24 Range/Units 10:44 WBC (4.8-10.8) X10*3/uL RBC (4.20-5.50) X10*6/uL Hgb (12.0-16.0) g/dl Hct (37.0-47.0) % MCV (80.0-98.0) fL MCH (27.0-33.0) pg MCHC (31.0-35.0) g/dl RDW (11.0-16.0) % Plt Count (160-400) X10*3/uL MPV (9.4-12.3) fL Immature Gran % (Auto) (0.0-0.4) % Neut % (Auto) (45-73) % Lymph % (Auto) (20-40) % Mck[place] % (Auto) (2-11) % Eos % (Auto) (0-4) % Baso % (Auto) (0-2) % Lymph # (Auto) (1.2-4.9) X10*3/uL [place] # (Auto) (0.1-1.2) X10*3/uL Eos # (Auto) (0.0-0.4) X10*3/uL Baso # (Auto) (0.0-0.2) X10*3/uL Abs Immat Gran (auto) (0.00-0.03) X10*3/uL Absolute Neuts (auto) (2.0-8.3) x10*3/uL Absolute Nucleated RBC (0.0-0.012) X10*3/uL Nucleated RBC % (auto) (0.0-0.2) /100WBC Hold Purple Top Sodium (135-145) mmol/L Potassium (3.3-5.1) mmol/L Chloride (96-108) mmol/L Carbon Dioxide (22-29) mmol/L Anion Gap (12-20) BUN (9-16) mg/dL Creatinine (0.5-1.4) mg/dL Estim Creat Clear Calc Estimated GFR Random Glucose (60-115) mg/dL Calcium (8.4-10.2) mg/dL Troponin I High Sens (<3.5-17.0) ng/L Urine Color Yellow Urine Appearance Turbid Urine pH 7.0 (5.0-9.0) Ur Specific [place] 1.020 (1.005-1.025) Urine Protein 100 (2+) H (Neg-Trace) mg/dL Urine Glucose (UA) Negative (Negative) mg/dL Urine Ketones Negative (Negative) mg/dL Urine Blood Moderate (2+) H (Negative) Urine Nitrite Negative (Negative) Ur Leukocyte Esterase Large (3+) H (Negative) Urine RBC >20 H (0-2) /HPF Urine WBC >50 H (0-5) /HPF Ur Squamous Epith Cells 0-2 (0-2) /HPF Urine Bacteria None Seen (None Seen) Hyaline Casts 3-5 (0-2) /LPF Influenza Type A (PCR) (Negative) Influenza Type B (PCR) (Negative) RSV RNA Qual (PCR) (Negative) SARS-CoV-2 RNA (RT-PCR) (Negative) Independent Interpretation I performed an independent interpretation of an: Plain X-Ray ( Chest: Right knee: Right hip x-rays: COPD / small right knee effusion / no hip or pelvic fracture.) and CT Scan ( Head:. No acute intracranial abnormality. No fracture. 2. 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 2. Stable white matter small vessel ischemic changes and age-related involutional changes. ) Radiology Impression Discussion of test interpretation with radiology: I have reviewed the radiologist's reading. Discharge Plan Discharge Clinical Impression: Acute UTI Dementia Qualifiers: Dementia type: unspecified type Dementia severity: moderate Dementia behavioral or psychological symptom: with anxiety Qualified Code(s): F03.B4 - Unspecified dementia, moderate, with anxiety Patient Disposition: Still a Patient Instructions: Fall Prevention for Older Adults (ED), Urinary Tract Infection in Older Adults (ED) Prescriptions: New cefuroxime axetil 500 mg tablet 500 mg PO BID 10 Days Qty: 20 0RF No Action mirtazapine 7.5 mg tablet 7.5 mg PO BEDTIME 30 Days Qty: 30 3RF donepezil 5 mg tablet 5 mg PO DAILY 90 Days Qty: 90 1RF Print Language: Citizen Of [place]
--- NOTE | 2024-04-24 12:24 | PC.NURSE ---
Pt remains out of room for imaging, unable to obtain cultures and give abx at this time
--- OUTSIDE RECORDS SUMMARY | 2024-04-24 12:38 | XMS_ITS ---
Author Organization [facility] Care Team Providers Care Clinical Pharmacy Technician Name Role Phone Boogie Gonzalez Unavailable Unavailable Venice Murrell Unavailable Unavailable Allergies and adverse reactions Code CodeSystem Substance Reaction Severity StartDate Concern Status 556804565 SNOMED CT Sulfa Antibiotics Unknown 12/30/2022 active 12917 RXNORM OxyBUTYnin Unknown 12/30/2022 active 03799 RXNORM levoFLOXacin Unknown 12/30/2022 active 27533 RXNORM Docusate Unknown 12/30/2022 active 2670 RXNORM Codeine Unknown 12/30/2022 active 96822 RXNORM Azithromycin Unknown 12/30/2022 active Care Team Name Role Address Phone Organization Jhonatan Gonzalez Attending Physician [address] [facility] [address], [place], [address], [facility] (Office): : : [facility] [place] 12/30/2022 - 01/30/2023 Venice Murrell Attending Physician [address] [place] [address], [place], [address], [place] (Office): : : [facility] [place] 12/30/2022 - 01/30/2023 Immunizations Immunization Status Vaccine Details Vaccine Code CodeSystem Date Notes TB 1 Step Mantoux (PPD) completed tuberculin skin test; purified protein derivative solution, intradermal lotNumber: [id number] expiry: 04/11/2024 Mfg: Exosect pharmaceutical Given 0.1 ml Right Forearm intradermally [...] PSYCHOTIC DISTURBANCE, MOOD DISTURBANCE, AND ANXIETY 01/02/[address] active 2 BILATERAL PRIMARY OSTEOARTHRITIS OF HIP 12/30/[address] active 3 GENERALIZED ANXIETY DISORDER 12/30/[address] active 4 HYPERLIPIDEMIA, UNSPECIFIED 12/30/[address] active 5 HYPOTHYROIDISM, UNSPECIFIED 12/30/[address] active 6 OTHER SPECIFIED SEPSIS 12/30/[address] active 7 OTHER SPONDYLOSIS, CERVICAL REGION 12/30/[address] active 8 RHABDOMYOLYSIS 12/30/[address] ac tive 9 UNSPECIFIED DISPLACED FRACTURE OF SURGICAL NECK OF RIGHT HUMERUS, SUBSEQUENT ENCOUNTER FOR FRACTURE WITH ROUTINE HEALING 12/30/[address] active 10 UNSPECIFIED FALL, SUBSEQUENT ENCOUNTER 12/30/[address] active 11 URINARY TRACT INFECTION, SITE NOT SPECIFIED 12/30/[address] active Reason for Referral No Reasons for Referral Entered Social History Social History Observation Description Start Date End Date Code Code System Current Smoking Status Tobacco smoking consumption unknown 334142491 SNOMED CT Sex Assigned At Female 1940 98932-4 [facility] Vital Signs Code Code System Vitals Name Values and Units Timing Information 01936-7 LOINC Pain Level Value=0.0 01/30/2023 9279-1 LOINC Respiratory Rate Value=20.0 Units=/m in 01/30/2023 8462-4 LOINC Blood Pressure-Diastolic Value=72 Un its=mmHg 01/30/2023 8480-6 LOINC Blood Pressure-Systolic Clkig=165 Un its=mmHg 01/30/2023 8867-4 LOINC Heart rate Value=76.0 Units=/min 03720-2 LOINC O2 % BldC Oximetry Value=95.0 Units= % 01/30/2023 8310-5 LOINC Body Temperature Value=98.2 Units=?? F 01/30/2023 33830-4 LOINC Weight Pecho=245.8 Units=Lbs 03/2022 8302-2 LOINC Height Value=66.0 Units=Inches 12/31/2022
[2024-04-24] MEDS: cefTRIAXone sodium 1 GM VIAL IVPUSH (12:48)
[2024-04-24] MEDS: 0.9 % Sodium Chloride 1,000 ML 999 ML IV (12:49)
--- NOTE | 2024-04-24 15:16 | PC.NURSE ---
Unsteady on feet during ambulation trial
--- NOTE | 2024-04-24 15:37 | PC.NURSE ---
Plan for PT/CM
--- NOTE | 2024-04-24 16:54 | PC.NURSE ---
Saumya will call this RN later with home medication
--- NOTE | 2024-04-24 20:13 | MHC.CM.ED ---
Addendum entered by Jennifer Mckoen 04/24/24 20:39: PCP is Tony Cain. Original Note: CM attempted to meet with patient, however, she was sound asleep. CM called and spoke with, Marcial Baronepedro ([phone]) HCP/POA/son (on file) regarding plan of care moving forward. Pt had 2 previous falls in March. PT is recommending STR or 24/7 care at home. CM reviewed PT recommendations, Medicare's 3 midnight rule and need for private pay for STR due to no qualifying stay and potential referral to acute rehabs. Son tells CM that there is no money for private pay STR. He cannot pay for LTC. After a long conversation with Marcial, he is willing to have referrals to acute rehab and [facility]. After much conversation, Marcial tells CM that he has 2 women who provide daily care for his mother. They do not live there, but have been staying overnight d/t patient's increasing confusion. He also tells CM that a VNA comes and his mother has PT. He tells CM that the home private pay providers tell him his mother is safe at home and that the last time she fell, she had a UTI. CM stressed that at this time, his mother needs 24/7 care, not just daily care. He encouraged CM to call Domenica Tapia ([phone]), who is a inspector and sorter who lives next door for more information. He is very stressed managing his mother's care. He will call ANAID , a friend who also cares for his mother to assess how she is doing at home. Domenica tells CM that she feels this patient is safe at home, and that her increasing confusion and falls are related to her UTI. She tells CM that the [facility] is providing SN, PT and OT. She is aware that this patient will either go to acute rehab, if accepted or will go home with the 24/7 care provided in the home. CM will call her tomorrow if patient is returning home. Pt lives in her own home. She has caregivers. She uses a walker. Her HCP/POA and living will are on file. Will place acute referrals. Pt does not have a qualifying stay. Will place task to [facility]. Pt declines [facility] financial services, as his mother will not qualify. He does not have access to her funds. He has been using his own money to provide care for his mother. He has no family help, as his brother and father have . CM will call him tomorrow to discuss acute care offers or discharge home with /7 services and [facility] services. Will need BLS transport secondary to dementia and fall risk. CM will follow for discharge planning.
--- NOTE | 2024-04-24 20:48 | MHC.EDTECH ---
Assisted pt to bathroom. Pt ambulates with slow steady gait with assist. Walker given for further support. Pt had large bm. Pt cleaned and assisted back to bed. New stephaniewick placed. RN aware.
[2024-04-24] MEDS: cefuroxime axetiL 500 MG TABLET PO (21:19)
--- NOTE | 2024-04-24 22:30 | PC.NURSE ---
pt arrived to overflow, assist into hospital bed, purewick in place, pt dry. bed alarm on for safety. no apparent distress noted at this time. pt resting comfortably
[2024-04-25 06:20] VITALS: BP 114/78; PULSE 93; RESP 16; TEMP 36.3; O2SAT 96
[2024-04-25] MEDS: cefuroxime axetiL 500 MG TABLET PO (07:59)
[2024-04-25 08:16] VITALS: BP 119/65; PULSE 86; RESP 12; TEMP 36.5; O2SAT 97
--- NOTE | 2024-04-25 09:09 | PC.NURSE ---
assumed care of patient at 0700, patient is awake and alert, resp even and unlabored, VSS. patient sat up and ate breakfast, medicated per MAR. patient linens dry and clean.
--- NOTE | 2024-04-25 11:23 | MHC.CM.ED ---
Addendum entered by Viry Pérez 04/25/24 11:26: CORETTA also made aware of d/c. Original Note: Patient remains in ER overflow. No acute bed offers. Spoke with Domenica, via telephone at [phone]. Domenica requesting antibiotic prescription be sent to [facility] on [address] in [place]. Iesha CARTAGENA booked for 4pm. Med [facility] with chart. Patient, Rose Marie VANCE and Ana ESPARZA aware.
[2024-04-25 12:26] VITALS: BP 98/75; PULSE 84; RESP 18; TEMP 36.4; O2SAT 95
--- NOTE | 2024-04-25 12:42 | PC.NURSE ---
Plan for discharge home with / services around 4pm later today. Transport arranged for 4pm pickup today via BLS, care to be provided by ANAID & Domenica. Viry Pérez (TARUN) notified this RN about plan. Patient ate about 25% of her lunch tray. Dementia/confusion. Removed her hospital gown from her own body, reapplied. Warm blankets provided. Patient thankful. States that there are a lot of people standing around waiting, experiencing visual hallucinations at this time. Hx dementia. Fall risk, elopment risk. CM aware. Purewick remains in place. Awaiting transport. Care ongoing by this RN until discharge.
--- NOTE | 2024-04-25 13:40 | PC.NURSE ---
Patient needs frequent redirection. Repeatedly removing her hospital gown. Purewick in place, attached to wall suction at bedside (Overflow 5). Awaiting transport, ETA 4pm today to home with 24/7 services. Bed alarm active/on.
[2024-04-25 14:00] VITALS: BP 98/40; PULSE 94; RESP 16; TEMP 36.7; O2SAT 96
[2024-04-25 16:15] VITALS: BP 98/40; PULSE 94; RESP 16; TEMP 36.7; O2SAT 96
== END 2024-04-25 16:15 | disposition home or self-care (01) ==
PROVIDERS: Emergency Provider Emergency Medicine
DX: S89.91XA Unspecified injury of right lower leg, initial encounter (principal); S79.911A Unspecified injury of right hip, initial encounter; N39.0 Urinary tract infection, site not specified; F03.B4 Unspecified dementia, moderate, with anxiety; M25.561 Pain in right knee; R11.0 Nausea; R51.9 Headache, unspecified; X58.XXXA Exposure to other specified factors, initial encounter; Y93.9 Activity, unspecified; Y92.9 Unspecified place or not applicable; Y99.8 Other external cause status; F17.210 Nicotine dependence, cigarettes, uncomplicated; Z87.440 Personal history of urinary (tract) infections; Z79.899 Other long term (current) drug therapy; Z03.818 Encounter for observation for suspected exposure to other biological agents ruled out
CPT/HCPCS: 0241U; 36415; 70450; 71045; 73502; 73560; 80048; 81001; 84484; 85025; 87040; 87086; 87088; 87186; 93005; 96361; 96374; 97162; 99285; J0696

== ENCOUNTER → 2024-04-24 10:01 | Outpatient (BNV) | payer MEDICARE, SELFPAY | PROVIDERS: Emergency Provider Emergency Medicine; Visit Provider Internal Medicine | DX: R94.31 Abnormal electrocardiogram [ECG] [EKG] (principal); R53.1 Weakness | CPT/HCPCS: 93010 ==

== ENCOUNTER → 2024-04-24 11:53 | Outpatient (BNV) | payer MEDICARE, SELFPAY | PROVIDERS: Emergency Provider Emergency Medicine; Visit Provider Radiology Diagnostic Radiology | DX: I67.82 Cerebral ischemia (principal); R90.82 White matter disease, unspecified; M85.88 Other specified disorders of bone density and structure, other site; J44.9 Chronic obstructive pulmonary disease, unspecified; M25.461 Effusion, right knee; M85.861 Other specified disorders of bone density and structure, right lower leg | CPT/HCPCS: 70450; 71045; 73502; 73560 ==

== ENCOUNTER 2024-08-26 08:28 | Emergency (ER) | payer MEDICARE, SELFPAY ==
[2024-08-26] VITALS (7 sets, daily range): BP systolic 100–123; BP diastolic 32–70; PULSE 77–92; RESP 14–20; TEMP 36.2–37.1; O2SAT 90–99; BMI 21.2
--- NOTE | ~2024-08-26 | CT_ITS ---
EXAMINATION: CT HEAD WITHOUT IV CONTRAST HISTORY: fall. TECHNIQUE: Unenhanced helical CT of the head was performed per standard departmental protocol. Coronal and sagittal reformats of the head were also evaluated. One or more of the following techniques was used for dose reduction: Automated exposure control, adjustment of the mA and/or kV according to patient size, use of iterative reconstruction technique. DLP: 648 mGy-cm COMPARISON: Comparison is made with the prior examination dated 04/24/2024. FINDINGS: BRAIN: There is diffuse prominence of the ventricular system and cortical sulci, consistent with atrophy. Periventricular and subcortical white matter hypodensities are noted which are nonspecific, but often seen in the setting of small vessel ischemic disease. Again seen is a 10 mm rim calcified structure in the anterior cranial fossa consistent with a meningioma. There is no mass effect or midline shift. No intra- or extra-axial fluid collections are identified. SINUSES: The visualized paranasal sinuses are clear. The mastoid air cells and middle ear cavities are well pneumatized. ORBITS: The visualized orbits are unremarkable. BONES/SOFT TISSUES: There is right frontal soft tissue swelling. The calvarium is intact. No suspicious lytic or sclerotic lesions. CT/CT head/brain wo IV con IMPRESSION: Right frontal soft tissue swelling. No acute intracranial abnormality. Electronically signed by: Chava Rodriguez MD 08/26/2024 11:33 AM EDT
--- NOTE | ~2024-08-26 | XR_ITS ---
EXAMINATION: XR SHOULDER, RIGHT CLINICAL INFORMATION: fall COMPARISON: March 16, 2023. TECHNIQUE: AP view in internal rotation and neutral position and Y-view projection of the right shoulder. FINDINGS: Acute comminuted superiorly displaced cortical disruption distal clavicle. The acromioclavicular joint is intact. Old traumatic deformity right humeral neck. Osteopenia versus osteoporosis. 4 mm calcified pulmonary nodule right upper lung lobe. Pulmonary reticular nodular pattern. XR/XR shoulder RT min 2V IMPRESSION: Acute superiorly displaced fracture distal right clavicle. Old traumatic deformity right humeral neck. Electronically signed by: Rich Juárez MD 08/26/2024 10:37 AM EDT
--- NOTE | ~2024-08-26 | XR_ITS ---
EXAMINATION: XR PELVIS 1-2 VIEWS HISTORY: fall COMPARISON: Comparison is made with the prior examination dated 04/24/2024. FINDINGS: A single AP view of the pelvis is submitted. The bones are osteopenic. There is no fracture or dislocation. There is mild to moderate narrowing of both hip joints. There are vascular calcifications. XR/XR pelvis 1-2V IMPRESSION: Osteopenia. No evidence of fracture of the pelvis. Electronically signed by: Chava Rodriguez MD 08/26/2024 10:32 AM EDT
--- NOTE | ~2024-08-26 | CT_ITS ---
EXAMINATION: CT CERVICAL SPINE WITHOUT CONTRAST CLINICAL INFORMATION: Status post fall. COMPARISON: April 05, 2024. TECHNIQUE: Contiguous axial images through the cervical spine using 3 mm collimation with bone and soft tissue algorithm. Sagittal and coronal reformatted images acquired. DLP: [address] examination was performed using dose optimization techniques as appropriate, variously including the following: *Automated exposure control *Adjustment of mA and/or kV according to patient size (this includes techniques or standardized protocols for targeted exams where dose is matched to indication/reason for exam; i.e. extremities or head) *Use of iterative reconstruction technique FINDINGS: Patient's motion artifact. Craniocervical junction is intact with normal alignment between the occipital condyles and the lateral masses of C1. Degenerative changes in the periodontal C1 region. Anterior marginal osteophyte formation at multiple levels from C3 to C7. Decreased intervertebral disc height subchondral cyst formation and endplate sclerosis at C5-6 and C6-7 level. Multilevel facet joint hypertrophy from C2-3 to C6-7. Reverse curvature apex at C5-6. C1 is intact. C2 is intact. C3 is intact. C4 is intact. C5 is intact. C6 is intact. C3 7 is intact. Osteopenia versus the process. No gross prevertebral compartment hematoma. Calcified plaques in the carotic arteries with a retropharyngeal trajectory at C5-6 level. Tympanic cavities and mastoid cells are aerated. Vascular calcifications cavernous supracavernous segments both ICAs. CT/CT cervical spine wo IV con IMPRESSION: Multilevel spondylosis without acute fracture or trauma-related listhesis. Overall similar morphology since prior exam. Fleischner guidelines were followed. Electronically signed by: Rich Juárez MD 08/26/2024 11:42 AM EDT
--- NOTE | ~2024-08-26 | CT_ITS ---
EXAMINATION: CT FACIAL BONES WITHOUT CONTRAST CLINICAL INFORMATION: Status post fall. COMPARISON: Correlated to CT head dated August 26, 2024 and April 24, 2024. TECHNIQUE: Contiguous axial images through the maxillofacial bones using 2 mm collimation with bone and soft tissue algorithm. Sagittal and coronal reformatted images acquired. DLP: [address] examination was performed using dose optimization techniques as appropriate, variously including the following: *Automated exposure control *Adjustment of mA and/or kV according to patient size (this includes techniques or standardized protocols for targeted exams where dose is matched to indication/reason for exam; i.e. extremities or head) *Use of iterative reconstruction technique FINDINGS: Patient's motion artifact. There is comminuted cortical disruption involving the nasal bones, nasal septum and likely vomer. Edema pattern/contusion without overt hematoma. The orbital rims, orbital apices and orbital fissures are intact. The eyeballs are intact. No hematoma in the intraconal or extraconal compartments of the orbits. No gross hematoma in the preseptal periorbital region. There is a cortical irregularity in the of the anterior nasal spine. The vertebral plates are intact. The zygomatic arcs are intact. The mandible is intact. The temporomandibular joints are intact. There is no air-fluid levels in the paranasal sinuses. Calcified plaques in the carotic arteries. Tympanic cavities and mastoid cells are aerated. Degenerative changes in the upper cervical spine. Calcified plaques in the cavernous supracavernous segments both ICAs. There is a 12 mm partially calcified extra-axial mass in the midline of the anterior cranial fossa/posterior to the apophysis liz rafiq. There is global cerebral atrophy and White matter disease no fully evaluated. CT/CT facial bones wo IV con IMPRESSION: Acute comminuted nasal bone fractures nasal septum and likely the former fractures. Acute fracture, anterior nasal spine. 12 mm partially calcified meningioma, anterior cranial fossa. Electronically signed by: Rich Juárez MD 08/26/2024 01:28 PM EDT
--- NOTE | 2024-08-26 09:02 | ECG_ITS ---
Test Reason : FALL Blood Pressure : */* mmHG Vent. 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
[2024-08-26 09:36] LABS: MANUAL DIFF FLAG NO
[2024-08-26 09:40] LABS: Hematocrit 35.9 % (37.0-47.0); Hemoglobin 11.5 g/dl (12.0-16.0); Imm Gran Abs Auto 0.05 X10*3/uL (0.00-0.03); Imm Gran Pct Auto 0.6 % (0.0-0.4); Lymphocytes Absolute Auto 1.3 X10*3/uL (1.2-4.9); Mean Corpuscular HGB Conc 32.0 g/dl (31.0-35.0); Mean Corpuscular Hemoglobin 30.0 pg (27.0-33.0); Mean Corpuscular Volume 93.7 fL (80.0-98.0); NRBC Abs Auto 0.000 X10*3/uL (0.0-0.012); NRBC Pct Auto 0.0 /100WBC (0.0-0.2); Platelet Count 318 X10*3/uL (160-400); Red Blood Count 3.83 X10*6/uL (4.20-5.50); White Blood Count 9.1 X10*3/uL (4.8-10.8)
[2024-08-26 09:53] LABS: Alanine Aminotransferase 7 U/L (0-31); Albumin Level 3.9 g/dL (3.5-5.0); Alkaline Phosphatase 79 U/L (39-117); Anion Gap 10 (12-20); Aspartate Amino Transferase 21 U/L (5-31); Blood Urea Nitrogen 18 mg/dL (9-16); Calcium 8.9 mg/dL (8.4-10.2); Carbon Dioxide 26 mmol/L (22-29); Chloride 106 mmol/L (96-108); Creatinine Clr Calc Pharmacy 47.5; Estimated Glomerular Filt Rate > 60; Lipase 9 U/L (8-78); Magnesium 2.0 mg/dL (1.6-2.6); Potassium 3.8 mmol/L (3.3-5.1); Sodium 138 mmol/L (135-145); Total Protein 6.7 g/dL (6.5-8.0)
[2024-08-26 10:02] LABS: Troponin-I High Sensitivity < 2.7 ng/L (<3.5-17.0)
--- NOTE | 2024-08-26 10:08 | ED_ITS ---
HPI - Fall General Chief Complaint: Fall Stated Complaint: R SHOULDER PAIN S/P SLIP/FALL FROM COUCH PER EMS Time Seen by Provider: 08/26/24 08:49 Source: patient and EMS Mode of arrival: EMS Limitations: other (dementia) History of Present Illness ED Provider: VILLA HPI Narrative: 84 yo female with PMH of hypothyroidism, HLD, R humerus fracture, dementia, not on blood thinners here with c/o getting up from couch and states she stepped wrong and fell. She thinks it was in the middle of the night. She denies LOC but states she thinks she was on the ground for a bit. She had a bloody nose. She reports pain to the face and R shoulder where she had prior break. She denies any preceding dizziness/chest pain/dyspnea. No recent fevers. She is alert and oriented to place and person on arrival. 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) Fall from: standing Fall witnessed: yes, by family (caregiver) Place fall occurred: home Loss of consciousness: none Prolonged down time: no Symptoms prior to fall: none Context: tripped/slipped Location of injury: head and face Location of injury - extremities: right: shoulder Severity: mild Quality: aching Associated symptoms (after fall): denies Related Data Home Medications ?Medication ?Instructions ?Recorded ?Confirmed melatonin 3 mg tablet 3 mg PO BEDTIME PRN Sleep 08/28/24 Previous Rx's ?Medication ?Instructions ?Recorded mirtazapine 7.5 mg tablet 7.5 mg PO BEDTIME 30 days #3 0 tabs 01/17/24 HOSPITAL BED #1 ea 07/22/24 atropine sulfate (PF) 1 % eye 1 drp ophthalmic (eye) Q 2H PRN 08/28/24 drops in a dropperette secretions #10 ea haloperidol lactate 2 mg/mL oral 0.5 mg (0.25 mL) PO Q 4H PRN 08/28/24 concentrate agitation #30 mL lorazepam 2 mg/mL oral concentrate 0.25 mg (0.125 mL) PO Q4H PRN 08/28/24 anxiety #30 mL morphine concentrate 100 mg/5 mL 5 mg (0.25 mL) PO .1h PRN dyspnea 08/28/24 (20 mg/mL) oral solution #30 mL atropine sulfate (PF) 1 % eye See Rx Instructions .Rou te 08/29/24 drops in a dropperette .COMPLEX PRN secretions #10 ea cefuroxime axetil 250 mg tablet 250 mg PO BID #11 tabs 08/29/24 haloperidol lactate 2 mg/mL oral See Rx Instructions . Route 08/29/24 concentrate .COMPLEX PRN agitation #30 m L lorazepam 2 mg/mL oral concentrate See Rx Instructions .Route 08/29/24 .COMPLEX PRN anxiety #30 mL morphine concentrate 100 mg/5 mL See Rx Instructions . Route 08/29/24 (20 mg/mL) oral solution .COMPLEX PRN dyspnea #30 mL Allergies Allergy/AdvReac Type Severity Reaction Status Date / Time azithromycin Allergy Unknown Unknown Verified 08/26/24 08:38 codeine Allergy Unknown Unknown Verified 08/26/24 08:38 docusate (From Colace) Allergy Unknown red rash, Verified 08/26/24 08:38 hand swelling latex (LATEX) Allergy Unknown ITCHY Verified 08/26/24 08:38 levofloxacin (Levaquin) Allergy Unknown Unknown Verified 08/26/24 08:38 oxybutynin Allergy Unknown red Verified 08/26/24 08:38 rash,hand swelling Sulfa (Sulfonamide Allergy Unknown RASH, Verified 08/26/24 08:38 Antibiotics) (SULFA Hives, (SULFONAMIDE ANTIBIOTICS)) hives Review of Systems 2 Review of Systems: Constitutional : No Fever, No Chills ENT/Mouth : No Ear Pain, No Hoarseness, No sore throat Eyes: No Eye Pain, No Swelling, No Redness, No Foreign Body Cardiovascular : No Chest Pain, No SOB Respiratory : No Cough, No Dyspnea Gastrointestinal : No Nausea, No Vomiting, No Diarrhea, No abdominal Pain Genitourinary : No Dysuria, No Hematuria Musculoskeletal : positive joint pain, No Myalgias, No Joint Swelling Skin : No Skin lacerations, No rash Neuro : No Weakness, No Numbness, No Loss of Consciousness, No Dizziness, No Headache All other systems reviewed and are negative PMFSH Past Medical History Attestation statement: The following information was validated with the patient. Source: old records reviewed Medical History HLD (hyperlipidemia) TRAMAINE (generalized anxiety disorder) Hypothyroid Surgical History History of cystoscopy History of tonsillectomy History of cataract surgery History of section Family History Family History Father Lung cancer Mother Hypertension MRSA infection Family history of thyroid problem Social History Social History Household Members: None Housing: House Do you presently have visiting nurse or other home services: No Alcohol intake: never Patient Tobacco Use Status: Current everyday Tobacco user Tobacco use type: Cigarette Cigarette Packs Per Day: 0.5 Cigarettes Per Day: 10 e-Cigarette/Vaping Use: Never Used Second Hand Smoke Exposure: Yes Advance Directives: Yes Advance Directives Information Provided: Yes Advance Directives on File: No service: No Current occupational status: retired Cognitive needs: No Hearing needs: No Vision needs: No Physical Exam 2 Vital Signs: Vital Signs: Last Vital Signs Temp 96.6 F L 08/29/24 11:18 Pulse 100 08/29/24 11:18 Resp 16 08/29/24 11:18 BP 99/66 08/29/24 11:18 Pulse Ox 100 08/29/24 11:18 O2 Del Method Room Air 08/29/24 11:18 BMI result Body Mass Index 21.2 Appearance: Alert. Oriented X3. No acute distress. Eyes: Pupils equal, round and reactive to light. ENT: Pharynx normal. no nasal septal hematoma , swelling on nasal bridge, no david sign no racoon eyes. Neck: Normal inspection. Neck supple. CVS: Normal heart rate and rhythm. Pulses normal. Respiratory: No respiratory distress. Breath sounds normal. Abdomen: Soft and nontender. Skin: Skin warm and dry. Normal skin color. Normal skin turgor. Extremities: No lower extremity edema. No calf ttp no pain with ROM of bilateral hips, R shoulder area swelling near AC joint distal NV intact, did not range it due to pain. Neuro: Oriented X 3. No motor deficit. No sensory deficit. CN2-12 intact Course Course Course Narrative: will sling R clavicle area there is no tenting Domenica [place] 1st contact was with patient today she feels does need rehab for a week so they can situate things as they cannot manage her acutely with new fracture Riaz - her son his HCP aware of plan and agrees. no surgical interventions they are also looking into hospice at home 9:48 PM 08/26/2024 (Hien ESPARZA): Patient is an 84-year-old female in case management observation status after a fall with right clavicular fracture. RN notified this provider the patient is becoming more restless and repeatedly attempting to get out of bed, presenting an increased risk for recurrent fallen injury. The patient received Zyprexa earlier today at 14:00 with moderate effect. Chart review reveals patient takes 7.5 mg of mirtazapine nightly at home, we will give her regular nighttime dose and additionally give Zyprexa 10 mg p.o.. We will continue to monitor for improvement in restlessness and consider additional intervention as indicated. Time: 1205 Date: 08/27/24 Provider: ISAIAS Seo Patient in physician observation for case management needs. VS stable. Patient is pending placement at facility. Patient will be referred to [facility]. She will leave [facility] on SundayAugust 29 at 11:00 a.m. hospice meds were recommended however will hold off as patient is not leaving until Sunday, this may cause confusion. We will continue to monitor for discharge needs. 3:35 AM 08/28/2024 (Hien ESPARZA): This provider was notified that the patient who is currently in case management observation for UTI being treated with cefpodoxime, and a fall with a clavicular fracture recently developed tachycardia and labile blood pressure of 101/57 without associated fever. Patient was treated with IV fluid hydration and her laboratory evaluation was repeated. Repeat laboratory evaluation shows no leukocytosis, worsening anemia, electrolyte abnormality, or significant ETIENNE. The patient's BUN did increased slightly from 18-21, creatinine is unchanged. The patient's lactic acid did result at 2.4. The patient's tachycardia and borderline hypotension is more likely secondary to functional fluid dehydration, not consistent with sepsis. We will provide IV fluid hydration and reassess lactic acid and vital signs. 4:42 AM 08/28/2024 (Hien ESPARZA): Patient's heart rate has improved to 85, blood pressure has improved to 106 systolic. We will repeat lactic acid and continue plan for p.o. antibiotics and discharge home with hospice on 08/29. 08/28/2024 [id number] Neeru Julien PA-C ----> Observation continues. Plan for discharge on 08/29/2024. Time: 08:06 Date: 08/29/24 Provider: Ladonna Charles CNP Patient in physician observation for case management needs, pending anticipated discharge home today with [facility]. No acute events reported overnight.? No current issues or complaints. VS stable. -- 08/29/2024 11:17 End of physician observation time Medications Administered Discontinued Medications Generic Name Dose Route Start Last Admin Trade Name Freq PRN Reason Stop Dose Admin Acetaminophen 650 mg 08/26/24 13:13 08/28/24 18:29 Acetaminophen 325 Mg Tablet PO 650 mg Q6H PRN Administration Pain, Mild 1-3,fever,headache Cefuroxime Axetil 250 mg 08/27/24 21:00 08/29/24 08:03 Cefuroxime Axetil 250 Mg Tablet PO 09/02/24 23:59 250 mg BID MERCEDES Administration Acetaminophen 1,000 mg in 100 mls @ 400 mls/hr 08/26/24 10:41 08/26/24 11:25 Ofirmev IV 08/26/24 10:55 Infused ONCE ONE Infusion Sodium Chloride 1,000 mls @ 999 mls/hr 08/28/24 02:30 08/28/24 04:12 Ns IV 08/28/24 03:30 Infused .Q1H1M MERCEDES Infusion Mirtazapine 7.5 mg 08/26/24 21:46 08/26/24 22:03 Mirtazapine 7.5 Mg Tablet PO 08/26/24 21:47 7.5 mg ONCE ONE Administration Olanzapine 5 mg 08/26/24 14:15 08/26/24 14:19 Olanzapine Odt 10 Mg Tab.Rapdis TRANSLINGU 08/26/24 14:16 5 mg ONCE ONE Administration Olanzapine 10 mg 08/26/24 21:46 08/26/24 22:03 Olanzapine 10 Mg Tablet PO 08/26/24 21:47 10 mg ONCE ONE Administration Olanzapine 10 mg 08/27/24 04:06 08/27/24 04:26 Olanzapine 10 Mg Tablet PO 08/27/24 04:07 10 mg ONCE ONE Administration Oxycodone HCl 5 mg 08/26/24 13:13 08/26/24 20:14 Oxycodone Hcl Immed Release 5 Mg Tablet PO 5 mg Q6H PRN Administration Pain, Moderate(Pain Scale 4-6) Procedures Orthopedic Splinting/Casting Injury #1: Side: right Upper Extremity Injury Location: clavicle and shoulder Upper Extremity Immobilizer: sling/shoulder immobilizer Additional Comments: NV intact Medical Decision Making Medical Decision Making MDM Narrative: 84 yo female with PMH of hypothyroidism, HLD, R humerus fracture, dementia, not on blood thinners here with c/o R shoulder pain / mechanical fall witnessed at this time she will need xrays of R shoulder and pelvis (given age) CT head/cspine, facial bones. This was mechanical and witnessed no preceding symptoms. Differential Diagnosis Differential Diagnoses: The differential diagnosis associated with the presentation includes facial fracture, humerus fracture, shoulder injury, ICH, anemia Admission/Observation Consideration of admission/observation: Escalation of care including admission/observation considered physician observation started 123pm pending PT/CM Consult Healthcare Provider Management of the patient was discussed with: Packaging Tech Lab Data MDM Lab Attestation statement: I reviewed the patient's lab results. 08/28/24 02:44 08/28/24 02:44 Labs: Lab Results 08/26/24 08/26/24 08/26/24 Range/Units 09:27 16:12 18:45 WBC 9.1 (4.8-10.8) X10*3/uL RBC 3.83 L (4.20-5.50) X10*6/uL Hgb 11.5 L (12.0-16.0) g/dl Hct 35.9 L (37.0-47.0) % MCV 93.7 (80.0-98.0) fL MCH 30.0 (27.0-33.0) pg MCHC 32.0 (31.0-35.0) g/dl RDW 14.5 (11.0-16.0) % Plt Count 318 (160-400) X10*3/uL MPV 9.7 (9.4-12.3) fL Immature Gran % (Auto) 0.6 H (0.0-0.4) % Neut % (Auto) 78.6 H (45-73) % Lymph % (Auto) 13.9 L (20-40) % [place] % (Auto) 6.4 (2-11) % Eos % (Auto) 0.3 (0-4) % Baso % (Auto) 0.2 (0-2) % Lymph # (Auto) 1.3 (1.2-4.9) X10*3/uL [place] # (Auto) 0.6 (0.1-1.2) X10*3/uL Eos # (Auto) 0.0 (0.0-0.4) X10*3/uL Baso # (Auto) 0.0 (0.0-0.2) X10*3/uL Abs Immat Gran (auto) 0.05 H (0.00-0.03) X10*3/uL Absolute Neuts (auto) 7.1 (2.0-8.3) x10*3/uL Absolute Nucleated RBC 0.000 (0.0-0.012) X10*3/uL Nucleated RBC % (auto) 0.0 (0.0-0.2) /100WBC Sodium 138 (135-145) mmol/L Potassium 3.8 (3.3-5.1) mmol/L Chloride 106 (96-108) mmol/L Carbon Dioxide 26 (22-29) mmol/L Anion Gap 10 L (12-20) BUN 18 H (9-16) mg/dL Creatinine 0.76 (0.5-1.4) mg/dL Estim Creat Clear Calc 47.5 Estimated GFR > 60 Random Glucose 104 (60-115) mg/dL Lactic Acid (0.5-2.0) mmol/L Lactic Acid F/U @ 2Hr (0.5-2.0) mmol/L Calcium 8.9 (8.4-10.2) mg/dL Magnesium 2.0 (1.6-2.6) mg/dL Total Bilirubin 0.9 (0.0-1.0) mg/dL Direct Bilirubin 0.3 (0.0-0.5) mg/dL AST 21 (5-31) U/L ALT 7 (0-31) U/L Alkaline Phosphatase 79 (39-117) U/L Total Creatine Kinase 73 (26-140) U/L Troponin I High Sens < 2.7 (<3.5-17.0) ng/L Total Protein 6.7 (6.5-8.0) g/dL Albumin 3.9 (3.5-5.0) g/dL Lipase 9 (8-78) U/L Urine Color Yellow Urine Appearance Clear Urine pH 7.0 (5.0-9.0) Ur Specific [place] 1.010 (1.005-1.025) Urine Protein Negative (Neg-Trace) mg/dL Urine Glucose (UA) Negative (Negative) mg/dL Urine Ketones 15 (Negative) mg/dL Urine Blood Trace H (Negative) Urine Nitrite Negative (Negative) Ur Leukocyte Esterase Large (3+) H (Negative) Urine RBC 0-2 (0-2) /HPF Urine WBC 21-50 H (0-5) /HPF Ur Squamous Epith Cells 0-2 (0-2) /HPF Urine Bacteria 1+ (None Seen) Hyaline Casts 0-2 (0-2) /LPF Influenza Type A (PCR) NEGATIVE (Negative) Influenza Type B (PCR) NEGATIVE (Negative) RSV RNA Qual (PCR) NEGATIVE (Negative) SARS-CoV-2 RNA (RT-PCR) NEGATIVE (Negative) 08/28/24 08/28/24 Range/Units 02:44 05:13 WBC 8.1 (4.8-10.8) X10*3/uL RBC 3.96 L (4.20-5.50) X10*6/uL Hgb 11.9 L (12.0-16.0) g/dl Hct 36.3 L (37.0-47.0) % MCV 91.7 (80.0-98.0) fL MCH 30.1 (27.0-33.0) pg MCHC 32.8 (31.0-35.0) g/dl RDW 14.4 (11.0-16.0) % Plt Count 335 (160-400) X10*3/uL MPV 9.5 (9.4-12.3) fL Immature Gran % (Auto) 0.2 (0.0-0.4) % Neut % (Auto) 63.4 (45-73) % Lymph % (Auto) 26.4 (20-40) % [place] % (Auto) 9.3 (2-11) % Eos % (Auto) 0.5 (0-4) % Baso % (Auto) 0.2 (0-2) % Lymph # (Auto) 2.1 (1.2-4.9) X10*3/uL [place] # (Auto) 0.8 (0.1-1.2) X10*3/uL Eos # (Auto) 0.0 (0.0-0.4) X10*3/uL Baso # (Auto) 0.0 (0.0-0.2) X10*3/uL Abs Immat Gran (auto) 0.02 (0.00-0.03) X10*3/uL Absolute Neuts (auto) 5.1 (2.0-8.3) x10*3/uL Absolute Nucleated RBC 0.000 (0.0-0.012) X10*3/uL Nucleated RBC % (auto) 0.0 (0.0-0.2) /100WBC Sodium 142 (135-145) mmol/L Potassium 3.4 (3.3-5.1) mmol/L Chloride 108 (96-108) mmol/L Carbon Dioxide 22 (22-29) mmol/L Anion Gap 15 (12-20) BUN 21 H (9-16) mg/dL Creatinine 0.84 (0.5-1.4) mg/dL Estim Creat Clear Calc 43.0 Estimated GFR > 60 Random Glucose 170 H (60-115) mg/dL Lactic Acid 2.4 H* (0.5-2.0) mmol/L Lactic Acid F/U @ 2Hr 0.8 (0.5-2.0) mmol/L Calcium 9.1 (8.4-10.2) mg/dL Magnesium (1.6-2.6) mg/dL Total Bilirubin 0.5 (0.0-1.0) mg/dL Direct Bilirubin (0.0-0.5) mg/dL AST 20 (5-31) U/L ALT 7 (0-31) U/L Alkaline Phosphatase 79 (39-117) U/L Total Creatine Kinase (26-140) U/L Troponin I High Sens (<3.5-17.0) ng/L Total Protein 6.7 (6.5-8.0) g/dL Albumin 3.9 (3.5-5.0) g/dL Lipase (8-78) U/L Urine Color Urine Appearance Urine pH (5.0-9.0) Ur Specific [place] (1.005-1.025) Urine Protein (Neg-Trace) mg/dL Urine Glucose (UA) (Negative) mg/dL Urine Ketones (Negative) mg/dL Urine Blood (Negative) Urine Nitrite (Negative) Ur Leukocyte Esterase (Negative) Urine RBC (0-2) /HPF Urine WBC (0-5) /HPF Ur Squamous Epith Cells (0-2) /HPF Urine Bacteria (None Seen) Hyaline Casts (0-2) /LPF Influenza Type A (PCR) (Negative) Influenza Type B (PCR) (Negative) RSV RNA Qual (PCR) (Negative) SARS-CoV-2 RNA (RT-PCR) (Negative) Independent Interpretation I performed an independent interpretation of an: Plain X-Ray (R clavicle fracture) and CT Scan (no ICH, no cervical spine fx) Interpretation: + nasal bone fractures son wants no surgery at all Radiology Impression Discussion of test interpretation with radiology: I have reviewed the radiologist's reading. Independent Historian Clinical information obtained from an independent historian. History obtained from or confirmed by: EMS and Other (son and caregiver) External Record Review External record reviewed: Inpatient record and Outpatient record Critical Care Time Critical Care Time Critical Care Time: Yes Total Critical Care Time: 35 Attestation: Time is exclusive of separately billable procedures. Time includes: direct patient care, patient reassessment, coordination of patient care, interpretation of data (laboratory data, pulse oximetry, trauma CT scans and xrays), review of patient's medical records, medical consultation and documentation of patient care. Procedures excluded from critical care time: central intravenous line placement and electrocardiography. Discharge Plan Discharge Clinical Impression: Clavicle fracture, Closed fracture nasal bone Dementia Qualifiers: Dementia type: unspecified type Dementia severity: moderate Dementia behavioral or psychological symptom: with anxiety Qualified Code(s): F03.B4 - Unspecified dementia, moderate, with anxiety Fall Qualifiers: Encounter type: subsequent encounter Qualified Code(s): W19.XXXD - Unspecified fall, subsequent encounter Patient Disposition: Home, Self-Care Instructions: Clavicle Fracture (ED), Nasal Fracture (ED), Fall Prevention (ED) Additional Instructions: sling for right upper extremity this could take 6 weeks to heal on its own no lifting and no moving arm above head or more than needed to clean in axilla. okay to do gentle circles of wrist and elbow to prevent pain/immobility there is a nasal bone fracture - avoid blowing nose for 1 week Prescription for antibiotic has been sent to the pharmacy please complete the entire course. Prescriptions: New morphine concentrate 100 mg/5 mL (20 mg/mL) solution 5 mg PO .1h PRN (Reason: dyspnea) Qty: 30 0RF Rx Instructions: Take 0.25ml (5mg) - 0.50ml (10mg) by mouth or under the tongue every 1 hour as needed for pain or shortness of breath. lorazepam 2 mg/mL concentrate 0.25 mg PO Q4H PRN (Reason: anxiety) Qty: 30 0RF Rx Instructions: Take 0.25ml (0.5mg) - 1.0ml (2mg) by mouth or under the tongue every 4 hours as needed for anxiety or agitation. haloperidol lactate 2 mg/mL concentrate 0.5 mg PO Q4H PRN (Reason: agitation) Qty: 30 0RF Rx Instructions: Take 0.5ml (1mg) - 1.0ml (2mg) by mouth or under the tongue every 4 hours as needed for agitation. atropine sulfate (PF) 1 % dropperette 1 drp ophthalmic (eye) Q2H PRN (Reason: secretions) Qty: 10 0RF Rx Instructions: Place 2 drops under the tongue every 2 hours as needed for secretions. cefuroxime axetil 250 mg tablet 250 mg PO BID Qty: 11 0RF lorazepam 2 mg/mL concentrate See Rx Instructions .ROUTE .COMPLEX PRN (Reason: anxiety) Qty: 30 0RF Rx Instructions: Take 0.125ml (0.5mg) - 1.0ml (2mg) by mouth or under the tongue every 4 hours as needed for anxiety or agitation. atropine sulfate (PF) 1 % dropperette See Rx Instructions .ROUTE .COMPLEX PRN (Reason: secretions) Qty: 10 0RF Rx Instructions: Place 2 drops under the tongue every 2 hours as needed for secretions. haloperidol lactate 2 mg/mL concentrate See Rx Instructions .ROUTE .COMPLEX PRN (Reason: agitation) Qty: 30 0RF Rx Instructions: Take 0.5ml (1mg) - 1.0ml (2mg) by mouth or under the tongue every 4 hours as needed for agitation. morphine concentrate 100 mg/5 mL (20 mg/mL) solution See Rx Instructions .ROUTE .COMPLEX PRN (Reason: dyspnea) Qty: 30 0RF Rx Instructions: Take 0.25ml (5mg) - 0.50ml (10mg) by mouth or under the tongue every 1 hour as needed for pain or shortness of breath. No Action mirtazapine 7.5 mg tablet 7.5 mg PO BEDTIME 30 Days Qty: 30 3RF (DME) HOSPITAL BED See Rx Instructions .Route .MEDSUPPLY Qty: 1 0RF Rx Instructions: As directed melatonin 3 mg Tablet 3 mg PO BEDTIME PRN (Reason: Sleep) Referrals: [facility] [Outside] Interventions: ED Discharge Assessment Last Done: 08/29/24 11:18 Discharge Date/Time: 08/29/24 11:19 Print Language: Persian
[2024-08-26] MEDS: OLANZapine ODT 10 MG TAB.RAPDIS 5 MG TRANSLINGU (14:19)
--- NOTE | 2024-08-26 14:28 | MHC.CM.ED ---
Addendum entered by Viry Pérez 08/26/24 14:42: Marcial aware if no acute bed offers are available, will need to privately pay for STR at SNF. Original Note: Received case management consult from Dr Heard. Patient came to the ER due to a fall. Found to have clavicle fracture. Physical therapy eval is ordered and pending. Spoke with patient's son/HCP, Marcial, via telephone at [phone]. Patient lives at home. Has 24/7 care. Patient has been falling recently. Per Marcial, hoping for patient to get rehab in order to safely come home with 24/7 care and then eventually transition to hospice. Patient has not had a qualifying stay. Referral will be made to all 3 acute rehab facilities. Continue to monitor for d/c needs.
--- NOTE | 2024-08-26 14:43 | PC.NURSE ---
Pt aggressive and aggitated with Pt and pt tech. Provider made aware and meds given as ordered per MAR
--- NOTE | 2024-08-26 15:46 | PC.NURSE ---
Switched pt room due to pt being unsafe and trying to get out of bed
--- NOTE | 2024-08-26 15:50 | MHC.EDTECH ---
Patient was very confused at baseline , Was trying to sit up patient with PT in the room and patient scratched my right arm. No skin tear. Patient did have her own blood under her nails. I was very worried i washed the area with soap and water vigorously.
[2024-08-26 16:57] LABS: Resp Syncy Virus RNA Qual PCR NEGATIVE (Negative); SARS COV2 PCR INHOUSE NEGATIVE (Negative)
--- NOTE | 2024-08-26 17:34 | MHC.EDTECH ---
Patient is refusing to keep on shoulder sling . RN is aware
[2024-08-26 18:52] LABS: Appearance Urine Clear; Glucose Urine UA Negative (Negative); PH 7.0 (5.0-9.0); Specific Gravity - Urine 1.010 (1.005-1.025); UMIC TRIGGER UACC YES
[2024-08-26 18:57] LABS: UACC Culture Trigger YES
[2024-08-26] MEDS: oxyCODONE HCl Immed Release 5 MG TABLET PO (20:14)
--- NOTE | 2024-08-26 21:40 | PC.NURSE ---
Pt confused and consistently trying to get out bed. Pt medicated for pain and all needs met. Provider notified. New orders placed in MAR to assist pt with sleeping. Monitoring is ongoing.
[2024-08-27] VITALS (7 sets, daily range): BP systolic 99–147; BP diastolic 46–86; PULSE 71–113; RESP 16–20; TEMP 36.1–36.8; O2SAT 93–100
--- NOTE | 2024-08-27 08:24 | MHC.CM.ED ---
Addendum entered by Viry Pérez 08/27/24 09:29: [facility] is unable to offer a bed. Referral broadcasted to all SNF's within 15 miles of patient's home for bed availability and private pay cost. Spoke with Riaz via telephone at [phone]. Riaz is upset with the potential cost of SNF. Will speak to Domenica and 04/09 Caregiver to determine if private pay SNF is necessary or if patient will return home. Original Note: Patient remains in ER. [facility] are unable to offer a bed. PT eval sent to [facility]. Continue to monitor for d/c needs.
--- NOTE | 2024-08-27 12:00 | MHC.CM.ED ---
Received return telephone call from Marcial. Marcial requesting referral to [facility]. Referral made via [facility]. Received notification that [facility] can sign patient onto hospice on Tuesday 08/29 at 1pm. Requested comfort hospice meds be sent to [facility] on [address] in [place]. Spoke with Marcial via telephone. Marcial aware patient will leave via [facility]/29 at 11am. [facility]. Med nec with chart. Patient, Nancy Ceja RN and Nikki ESPARZA aware. Continue to monitor for d/c needs.
[2024-08-28 02:11] VITALS: BP 101/57; PULSE 116; RESP 17; TEMP 36.4; O2SAT 99
[2024-08-28 02:53] LABS: MANUAL DIFF FLAG NO
[2024-08-28 02:55] LABS: Hematocrit 36.3 % (37.0-47.0); Hemoglobin 11.9 g/dl (12.0-16.0); Imm Gran Abs Auto 0.02 X10*3/uL (0.00-0.03); Imm Gran Pct Auto 0.2 % (0.0-0.4); Lymphocytes Absolute Auto 2.1 X10*3/uL (1.2-4.9); Mean Corpuscular HGB Conc 32.8 g/dl (31.0-35.0); Mean Corpuscular Hemoglobin 30.1 pg (27.0-33.0); Mean Corpuscular Volume 91.7 fL (80.0-98.0); NRBC Abs Auto 0.000 X10*3/uL (0.0-0.012); NRBC Pct Auto 0.0 /100WBC (0.0-0.2); Platelet Count 335 X10*3/uL (160-400); Red Blood Count 3.96 X10*6/uL (4.20-5.50); White Blood Count 8.1 X10*3/uL (4.8-10.8)
[2024-08-28 03:13] LABS: Alanine Aminotransferase 7 U/L (0-31); Albumin Level 3.9 g/dL (3.5-5.0); Alkaline Phosphatase 79 U/L (39-117); Anion Gap 15 (12-20); Aspartate Amino Transferase 20 U/L (5-31); Blood Urea Nitrogen 21 mg/dL (9-16); Calcium 9.1 mg/dL (8.4-10.2); Carbon Dioxide 22 mmol/L (22-29); Chloride 108 mmol/L (96-108); Creatinine Clr Calc Pharmacy 43.0; Estimated Glomerular Filt Rate > 60; Potassium 3.4 mmol/L (3.3-5.1); Sodium 142 mmol/L (135-145); Total Protein 6.7 g/dL (6.5-8.0)
[2024-08-28 04:14] VITALS: BP 106/54; PULSE 86; RESP 17; TEMP 36.3; O2SAT 98
[2024-08-28 04:52] LABS: Reflex Lactate? Lactic Acid Added
[2024-08-28 05:02] VITALS: BP 109/49; PULSE 79; RESP 17; TEMP 36.3; O2SAT 99
[2024-08-28 05:37] LABS: ~Lactic Acid-LAB USE ONLY 0.8 mmol/L (0.5-2.0)
--- NOTE | 2024-08-28 07:29 | PC.NURSE ---
pt's HR trending up to 116, bp's soft 90's to low 100's systolic with pt only passing a small amount of concentrated urine. PA Chalo Don aware at 0212. stat labs drawn, IV started and bolus given with +effect. Critical Lactate noted with PA aware.repeat bp 106/54, HR 86 and repeat lactate 0.8.
--- NOTE | 2024-08-28 10:33 | PHA.MEDREC ---
Pharmacy Consult ? Medication Reconciliation Pharmacy has been attempting to complete med rec. Pt poor historian and does not know her medications. Spoke with pt son 08/27 and he was a poor historian with pt meds and told us to call Domenica Tapia ([phone] family/other in contacts) and had to leave a voicemail yesterday and tried calling back again this AM with same results and LVM to call us back.
[2024-08-28 15:53] VITALS: BP 101/63; PULSE 89; RESP 17; TEMP 36.2; O2SAT 95
--- NOTE | 2024-08-28 17:04 | PC.NURSE ---
pt has slept much of today. 2x bed changes of urine, purewick in place too. 200ml in canister. pt eating dinner now. awake and alert/orientedx1. sometimes periods of confusion and agitation toward staff and yelling at them, other times calm and polite. plan for DC home tomorrow with hospice.
[2024-08-28 18:25] VITALS: BP 133/74; PULSE 104; RESP 18; TEMP 37; O2SAT 96
--- NOTE | 2024-08-28 19:25 | PC.NURSE ---
assumed car for pt at this time. pt awake and alert to self in bed watching tv. pt in no notable distress at this time. pts call [facility]rich within reach, plan of care ongoing .
--- NOTE | 2024-08-28 20:19 | PHA.MEDREC ---
Pharmacy Consult ? Medication Reconciliation Pharmacy has completed the medication reconciliation. Spoke with son to confirm she is only on melatonin.
[2024-08-28 21:22] VITALS: BP 108/55; PULSE 84; RESP 16; TEMP 36.3; O2SAT 98
[2024-08-29 05:52] VITALS: BP 99/66; PULSE 100; RESP 16; TEMP 35.9; O2SAT 100
--- NOTE | 2024-08-29 06:21 | PC.NURSE ---
Assumed care at 2300 pt has right facial bruising eye and nose no difficulty breathing or swallow noted . purewick in place , changed and repositioned, iv in left fa flushed .
--- NOTE | 2024-08-29 07:04 | PC.NURSE ---
Addendum entered by Nina Whitney RN 08/29/24 07:50: Patient is a 84 yo female with PMH of hypothyroidism, HLD, R humerus fracture, dementia, not on blood thinners here with c/o getting up from couch and states she stepped wrong and fell. She thinks it was in the middle of the night. She denies LOC but states she thinks she was on the ground for a bit. She had a bloody nose. She reports pain to the face and R shoulder where she had prior break. Patient noted to have a right clavicular fx. Also being treated for a UTI. Patient alert, impulsive and very confused. Dependent crackles noted. Respirations even and non-labored. Abdomen flat, soft, non-tender with positive bowel sounds. Purewick patent and intact, draining kari urine. Positive pedal pulses with no edema. Original Note: Medical History HLD (hyperlipidemia) TRAMAINE (generalized anxiety disorder) Hypothyroid
--- NOTE | 2024-08-29 09:11 | MHC.CM.PN ---
[facility] TRANSPORT BOOKED WITH [facility] FOR 1100 HOURS [facility] WILL PROVIDE SOC TODAY AT 1300 HOURS PTS SON, SARAY [phone], AWARE AND CONFIRMS DCP
--- NOTE | 2024-08-29 11:17 | PC.NURSE ---
Patient discharged home via EMS to be evaluated by hospice. Molst completed with Marcial (Son) prior to transfer.
[2024-08-29 11:18] VITALS: BP 99/66; PULSE 100; RESP 16; TEMP 35.9; O2SAT 100
== END 2024-08-29 11:19 | disposition home or self-care (01) ==
PROVIDERS: Physician Assistant; Emergency Provider Emergency Medicine; PCP Physician Assistant
DX: S42.031A Displaced fracture of lateral end of right clavicle, initial encounter for closed fracture (principal); S02.2XXA Fracture of nasal bones, initial encounter for closed fracture; W07.XXXA Fall from chair, initial encounter; Y93.9 Activity, unspecified; Y92.9 Unspecified place or not applicable; Y99.9 Unspecified external cause status; M25.511 Pain in right shoulder; F03.B4 Unspecified dementia, moderate, with anxiety; E03.9 Hypothyroidism, unspecified; E78.5 Hyperlipidemia, unspecified; F41.1 Generalized anxiety disorder; Z03.818 Encounter for observation for suspected exposure to other biological agents ruled out; Z79.899 Other long term (current) drug therapy
CPT/HCPCS: 36415; 70450; 70486; 72125; 72170; 73030; 80048; 80053; 80076; 81001; 82550; 83605; 83690; 83735; 84484; 85025; 87086; 87088; 87186; 87637; 93005; 96361; 96365; 97162; 99285; J0131

== ENCOUNTER → 2024-08-26 09:02 | Outpatient (BNV) | payer MEDICARE, SELFPAY | PROVIDERS: Emergency Provider Emergency Medicine; Visit Provider Internal Medicine | DX: I25.2 Old myocardial infarction (principal) | CPT/HCPCS: 93010 ==

== ENCOUNTER → 2024-08-26 09:02 | Outpatient (BNV) | payer MEDICARE, SELFPAY | PROVIDERS: Emergency Provider Emergency Medicine; Visit Provider Radiology Diagnostic Radiology | DX: M47.812 Spondylosis without myelopathy or radiculopathy, cervical region (principal); S02.2XXA Fracture of nasal bones, initial encounter for closed fracture; R22.0 Localized swelling, mass and lump, head; S42.031A Displaced fracture of lateral end of right clavicle, initial encounter for closed fracture; M85.88 Other specified disorders of bone density and structure, other site | CPT/HCPCS: 70450; 72170 ==